=== PATIENT | female | born 1955 | race Caucasian/White ===

== ENCOUNTER 2017-10-03 09:39 | Inpatient (IN) ==
--- NOTE | 2017-10-03 09:35 | Anesthesia Evaluation PreOp ---
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 Anxiety/Depression maintained on Swertraline, Lorazepam.) Other Medical History: GERD (Chronic Nausea maintained on Phenergan, Nexium, Carafate), Other (RAynauds Syndrome. Scleroderma dx 2006 maintained on Voltaren , Sildenaifil, Hydrocodone - primary affecting joints & lungs) Anesthesia History: No Prior Anesthetic Complications, Past Anesthesia (Hyster, , Appy, Pacemaker, Hernia Repair, R-Knee, R-CTR, L-Foot surgery), Problems (PONV) Alcohol Use: none Drug use: none Medications and Allergies Albuterol Sulfate [Proventil Hfa] 2 puff IH Q4H PRN 09/27/15 [History] Aspirin Enteric Coated [Aspirin EC] 81 mg PO QAM 09/27/15 [History] Cetirizine HCl [Zyrtec] 10 mg PO QPM 09/27/15 [History] Clopidogrel [Plavix] 75 mg PO QAM 09/27/15 [History] Cyclobenzaprine [Flexeril] 5 mg PO TID 09/27/15 [History] Diclofenac Sodium [Voltaren] 50 mg PO TID 09/27/15 [History] Doxazosin Mesylate [Cardura Xl] 2 mg PO QPM 09/27/15 [History] Esomeprazole Magnesium [Nexium] 40 mg PO BID 09/27/15 [History] Fluticasone Propionate Nasal [Flonase] 50 mcg NS DAILY PRN 09/27/15 [History] Furosemide [Lasix] 20 mg PO QAM 09/27/15 [History] Gabapentin [Neurontin] 600 mg PO TID 09/27/15 [History] Hydrocodone/Acetaminophen [[place] 7.5-325 Tablet] 1 tab PO Q6H PRN 09/27/15 [ History] LORazepam [Ativan] 1 mg PO QPM 09/27/15 [History] Lisinopril [Zestril] 5 mg PO QAM 09/27/15 [History] Meloxicam [Mobic] 15 mg PO DAILY 09/27/15 [History] Mometasone/Formoterol [Dulera 200 Mcg/5 Mcg Inhaler] 2 puff IH BID PRN 09/27/15 [History] Montelukast [Singulair] 10 mg PO QAM 09/27/15 [History] Nortriptyline [Pamelor] 50 mg PO HS 09/27/15 [History] SUMAtriptan succinate [Imitrex] 50 mg PO AD PRN 09/27/15 [History] Sertraline [Zoloft] 100 mg PO QPM 09/27/15 [History] Sildenafil Citrate [Revatio] 20 mg PO TID 09/27/15 [History] Sucralfate [Carafate] 1 gm PO TID 09/27/15 [History] Benzonatate [Tessalon] 200 mg PO TID PRN #30 capsule 04/15/17 [Rx] GuaiFENesin ER [Mucinex] 1,200 mg PO BID #20 tbbp.12hr 04/15/17 [Rx] Levofloxacin [Levaquin] 500 mg PO DAILY #10 tablet 07/17/17 [Rx] 3 Allergy/AdvReac Type Severity Reaction Status Date / Time codeine Allergy See Verified 09/27/17 11:00 Comments nitrofurantoin Allergy Hives Verified 09/27/17 11:00 [From Macrobid] Penicillins Allergy Hives Verified 09/27/17 11:00 sulfamethoxazole Allergy Hypotension Verified 09/27/17 11:00 [From Septra] Tetracycline Allergy Hives Verified 09/27/17 11:00 trimethoprim [From Septra] Allergy Hypotension Verified 09/27/17 11:00 Sulfa (Sulfonamide AdvReac Hypotension Verified 09/27/17 11:00 Antibiotics) - Meds/Allergy Pre-op Review Medications Reviewed: Yes Allergies Reviewed: Yes Beta Blockers on Current Med List: No Anesthesia Results - Labs Laboratory Tests 09/27/15 03/01/16 05/07/17 12:00 12:24 16:48 WBC Hgb Hct Plt Count PT INR APTT Sodium Potassium Chloride Carbon Dioxide BUN Creatinine Est GFR (Non-Af Amer) Glucose 119 H Calcium 9.4 Magnesium 2.1 Iron 26 L 09/27/17 09/27/17 09/27/17 11:20 11:20 11:20 WBC 7.7 Hgb 9.5 L Hct 32.0 L Plt Count 231 PT 11.3 INR 1.1 APTT 34.5 Sodium 139 Potassium 4.2 Chloride 104 Carbon Dioxide 28 BUN 19 Creatinine 0.78 Est GFR (Non-Af Amer) > 60 Glucose Calcium Magnesium Iron - Imaging EKG: image reviewed (EGD Dated 09/27/2017 - 91bpm VPaced. EKG Dated 09/27/2015 - 50bpm SB, w/ 1st degree block.) Anesthesia Exam O2 Sat Height 1.55 m Weight 88.451 kg Height: 5'1" Weight: 195# BMI = 37 NPO (# of Hours): MNoc - HEENT Pupil (Motor): Pupils equal, EOMI Mallampati: III (GLIDESCOPE may be useful) Teeth: Normal Oral Opening: Greater than 3 - MEAT PACKAGER LOC: Oriented MEAT PACKAGER Motor: Normal RUE, Normal LUE, Normal RLE, Normal LLE, Normal Face MEAT PACKAGER Sensory: Normal: RUE, LUE, RLE, LLE, Face - Cardiac Rhythm: Regular Murmur: None - Pulmonary Breath Sounds: bilateral Clear Respiratory Effort: Symmetrical Anesthesia Assess/Plan ASA Score: 3 (HTN, Pacemaker, Chronic Pain, Anxiety/Depression, Obesity, Asthma , GERD) Modified Radha Scale for Level of Consciousness: Cooperative, oriented, and tranquil Anesthetic Plan: General Monitoring Plan: Standard Monitors Recovery Plan: PACU Anes Supervising Prov Stmt: Pt seen/evaluated, R&B Discussed, questions answered and consent obtained. Bety Fox MD
[~2017-10-03 09:39] MED LIST: *HR* FentaNYL (PF) 100 MCG/2 ML VIAL ONE; *HR* Midazolam HCl 2 MG/2 ML VIAL ONE; *HR* Propofol 200 MG/20 ML VIAL IVP ONE; *HR* Remifentanil 2 MG VIAL IVP ONE
[2017-10-03] MEDS ORDERED: *HR* Labetalol 20 MG/4 ML SYRINGE IVP PRN (09:48)
[2017-10-03] MEDS ORDERED: *HR* HYDROmorphone (PF) 1 MG/ML SYRINGE IVP PRN (09:48)
[2017-10-03] MEDS ORDERED: *HR* Promethazine 25 MG/ML VIAL IVP PRN (09:48)
[2017-10-03] MEDS ORDERED: Acetaminophen IV 1,000 MG/100 ML INFUS..BTL IVPB ONE ×2 (09:49→17:36)
[2017-10-03] MEDS ORDERED: Famotidine 20 MG/2 ML VIAL IVP ONE (09:50)
[2017-10-03] MEDS ORDERED: Gabapentin 300 MG CAPSULE PO ONE (10:00)
[2017-10-03] MEDS ORDERED: Clindamycin 900 MG/50 ML 900 MG/50 ML IV.SOLN IVPB ONE (10:31)
[2017-10-03] MEDS ORDERED: Albuterol 2.5 MG/3 ML NEBULIZER IH ONE (10:31)
[2017-10-03] MEDS: Ringers Solution, Lactated 1,000 ML IVC SCH ×2 (11:03→17:45)
[2017-10-03] MEDS ORDERED: *HR* Remifentanil 2 MG VIAL IVP ONE (11:17)
--- NOTE | 2017-10-03 11:50 | History & Physical Report ---
Date of Encounter: 10/03/17 Time of Encounter: 11:49 24 Hour HP Update - Instructions Instructions: If the History and Physical is less than 30 days old and was completed prior to A.M. admission and or procedure and has NOT been updated on calendar day of procedure please complete this update prior to performing procedure. - Update Patient reports changes in Medical Condition: No Changes in examination, assessment, or condition: No Changes in Medication: No Preop tests/diagnostics Reviewed: Yes Pre-Op MRSA Screen: Negative Surgery Remains Indicated: Yes Consent for Planned Operative Procedure(s) Verified: Yes - Pre-Operative Checklist Preoperative Checklist Indicated: No Prophylactic Antibiotic Ordered: Yes Home Medications Include Beta Simona: No Beta Simona Taken Today (Day of Surgery): No Beta Simona Taken Yesterday (Day Prior to Surgery): No Is VTE Prophylaxis Indicated?: Yes
[2017-10-03] MEDS ORDERED: Lidocaine -MPF 2% 2 ML VIAL ONE (12:06)
[2017-10-03] MEDS ORDERED: *HR* Succinylcholine 200 MG/10 ML VIAL IVP ONE (12:06)
[2017-10-03] MEDS ORDERED: *HR* Rocuronium Bromide 50 MG/5 ML VIAL ONE (12:06)
[2017-10-03] MEDS ORDERED: *HR* Meperidine 25 MG/ML SYRINGE IVP PRN (12:50)
[2017-10-03] MEDS ORDERED: Ondansetron 4 MG/2 ML VIAL IVP ONE (12:50)
[2017-10-03] MEDS ORDERED: EPHEDrine 50 MG/ML VIAL ONE (12:59)
[2017-10-03] MEDS ORDERED: Albumin Human 5% 25.0 GM/500 ML VIAL ONE (14:04)
[2017-10-03] MEDS ORDERED: Clindamycin 600 MG/50 ML 600 MG/50 ML IV.SOLN IVPB ONE (15:54)
--- NOTE | 2017-10-03 16:53 | Orthopedic Operative Note ---
Date of procedure: 10/03/17 Pre-op diagnosis: Degenerative scoliosis, lumbar stenosis, lumbar radiculopathy Post-op diagnosis: same Operation/Findings: Posterior lumbar interbody fusion L2-L5: The patient successfully underwent general endotracheal anesthesia. The patient was given antibiotics prior to the start of the procedure. Compression boots and stockings were used for deep vein thrombosis prophylaxis. A Perez catheter was placed. Leads for neuro monitoring were placed on the upper and lower extremities. This included the cranium. The neuro monitoring personnel confirmed there were satisfactory readings prior to the start of the procedure. The patient was turned prone on the [place] table. The back was prepped and draped in the usual sterile fashion. An incision was was marked and centered over the involved L2-L5 levels in the mid line. The incision was deepened through the lumbar fascia. Bovie cautery and Daniel elevators were used to reflect the paraspinal musculature at the lateral extent of the transverse processes of the involved L2 , L3, L4, and L5 levels. Huma clamps were placed over the L4 and L5 spinous processes. An intraoperative lateral fluoroscopy graft was obtained. A conversation was held between the surgeon and radiologist and both confirmed we had the correct operative levels. We then placed pedicle screws in standard fashion with the aid of fluoroscopy and anatomic landmarks. Briefly a starter awl was used. A gearshift was subsequently used to enter the harbor boat pilot hole via a transpedicular route into the vertebral body. The harbor boat pilot hole was tapped with an undersized instrument, and subsequently eight 6.5 x 40 mm pedicle screws were placed bilaterally at the indicated L2, L3, L4, and L5 levels. The screws were tested with the aid of the neurologic monitoring staff via pedicle screw stimulation. All reading suggested there was no significant cortical wall breech. The screws were also evaluated fluoro- graphically and appeared to be in satisfactory position. We then turned our attention to the decompression portion of the procedure. We removed the supraspinous and interspinous ligaments and subsequently the insertion of the ligamentum flavum on the undersurface of the proximal L4 lamina was dislodged with a curette. We then removed the ligamentum flavum as well as undercut the L4-5 facets at this L4-5 level to decompress the lateral recesses. We also performed a L4 laminectomy. We proceeded proximally to the L3-4 level and again removed hypertrophied ligamentum flavum, undercut the L3-4 facets, 2 partial medial facetectomies, and performed a partial L3 laminectomy. We then moved proximally to the L2-3 level and again undercut the facets to decompress the lateral recesses, removal hypertrophied ligamentum flavum, and did a partial L2 laminectomy. After the decompression which was over and above that which was required to place the interbody graft, the foramen and traversing roots at the L2-3, L3-4, and L4-5 levels were found to be free and patent. We then protected the neural elements including the thecal sac and L5 traversing nerve root on the right with a dural retractor. We made an annulotomy into the L4-5 disc space and then removed entire disc material using Pituitary instruments. We trialed various size grafts after the endplates were prepared for graft insertion. A 10 x 26 enter body graft fit well within the L4-5 disc space. We obtained some bone from the right posterior superior iliac spine through us a separate incision and combined with this with the bone which we had saved from the laminectomies of L2, L3, and L4 portion of the procedure. This autograft bone was first placed in the anterior portion of the L4-5 disc space and additional bone was placed within the interbody graft spacer. We then placed the interbody graft spacer obliquely across the L4-5 disc space towards the midline while protecting the neural elements with a root retractor. When the graft was found to be in satisfactory position the heeler machine was removed. We then copiously irrigated the wound. We then decorticated the L2, L3, L4, and L5 transverse processes as well as the L2-3, L3-4, and L4-5 facet joints of the involved L2-L5 levels to aid in the posterolateral fusion. We placed autograft bone in the lateral gutters over these regions. We then placed rods within the screw heads of the involved L2-L5 levels and first locked the distal screws and then subsequently locked the proximal screws so as to improve and reduce the spondylolisthesis previously seen. We then closed the wound in layers with 1 Vicryl for the fascia, 2-0 Vicryl. Subcutaneous tissue, and Dermabond was used for skin closure. Sterile dressings were placed over the wound. The patient was turned supine on a hospital bed and extubated. All sponge instruments and needle counts were correct at the end of the procedure. The patient tolerated the procedure well without complications. Anesthesia: GETA Surgeon: Preston Mccormick Jr Was there an retail store assistant present: No Estimated blood loss (cc): 300 Specimen: none Condition: stable Disposition: PACU
[2017-10-03] MEDS: *HR* HYDROmorphone (PF) 1 MG/ML SYRINGE IVP PRN ×2 (17:18→17:28)
--- NOTE | 2017-10-03 17:54 | Anesthesia Evaluation Post Op ---
Date of Encounter: 10/03/17 Time of Encounter: 17:54 - Vital Signs Vital Signs: Selected Entries 10/03/17 17:38 10/03/17 17:48 Temperature 97.6 F Pulse Rate 89 Respiratory Rate 16 Blood Pressure 101/50 O2 Sat by Pulse Oximetry 93 Oxygen Flow Rate (LPM) 2 - Lungs Lungs: Clear Ascult./Percussion - Airway Airway: Non-obstructed - Cardiovascular Regular Rate - Mental Status Mental Status: Alert & Oriented, Answers Appropriately - Pain Pain Scale: 1 Pain Scale used: Numeric (1 - 10) - Nausea Vomiting Nausea Vomiting: Not Present - Hydration Hydration: Ice chips, Perez catheter - Discharge PostOp Status: Transfer Patient to floor
[2017-10-03] MEDS ORDERED: Fluticasone Propionate Nasal 50 MCG/SPRAY BOTTLE NS PRN (18:25)
[2017-10-03] MEDS ORDERED: Ondansetron 4 MG/2 ML VIAL IVP PRN (18:25)
[2017-10-03] MEDS ORDERED: Naloxone 0.4 MG/ML INJ IVP PRN (18:25)
[2017-10-03] MEDS ORDERED: *HR* LORazepam 1 MG TABLET PO PRN (18:25)
[2017-10-03] MEDS ORDERED: Acetaminophen 325 MG TABLET PO PRN (18:25)
[2017-10-03] MEDS: Sildenafil Citrate 20 MG TABLET PO SCH (21:15)
[2017-10-03] MEDS: *HR* OxyCODONE Immed Rel 5 MG TABLET PO SCH (21:16)
[2017-10-03] MEDS: Loratadine 10 MG TABLET PO SCH (21:16)
[2017-10-03] MEDS: Sucralfate 1 GM TABLET PO SCH (21:16)
[2017-10-03] MEDS: *HR* Morphine 2 MG/ML SYRINGE IVP PRN (23:56)
[2017-10-04] MEDS: *HR* OxyCODONE Immed Rel 5 MG TABLET PO SCH ×3 (00:49→08:59)
[2017-10-04] MEDS: Ringers Solution, Lactated 1,000 ML IVC SCH ×2 (01:33→15:31)
[2017-10-04 04:49] LABS: Basophils % 0.4 %; Eosinophils % 0.3 %; Hematocrit 24.6 % (35.3-44.9); Hemoglobin 7.7 g/dL (11.5-15.4); Immature Granulocytes % 0.4 % (0-4); Immature Platelets 6.8 % (1.1-6.1); Lymphocytes # 1.1 K/mcL (0.6-4.6); Lymphocytes % 10.8 %; Mean Corpuscular HGB Conc 31.3 g/dL (31.6-35.5); Mean Corpuscular Hemoglobin 23.1 pg (28.0-33.3); Mean Corpuscular Volume 73.7 fL (83.0-100.0); Mean Platelet Volume 11.4 fL (9.4-12.4); Monocytes # 0.7 K/mcL (0.0-1.3); Monocytes % 6.5 %; Neutrophils # 8.5 K/mcL (1.6-8.9); Platelet Count 185 K/mcL (140-400); Red Blood Count 3.34 M/mcL (3.82-4.97); Red Cell Distribution Width 17.5 % (11.5-14.5); Segmented Neutrophils % 81.6 %
[2017-10-04 05:50] LABS: Calcium 8.3 mg/dL (8.6-10.3); Chloride 106 mEq/L (98-107); Potassium 4.3 mEq/L (3.5-5.1); Sodium 136 mEq/L (136-145)
[2017-10-04 05:56] LABS: BUN/Creatinine Ratio 21 (6-26); Blood Urea Nitrogen 13 mg/dL (8-23); Glucose 131 mg/dL (70-105); Osmolality,Calculated 284 (280-300); eGFR For African Americans > 60 (> 60); eGFR For Non-African Americans > 60 (> 60)
[2017-10-04 06:14] LABS: Carbon Dioxide 19 mEq/L (23-29)
[2017-10-04] MEDS: SUMAtriptan succinate 50 MG TABLET PO PRN ×2 (06:29→17:39)
[2017-10-04] MEDS: *HR* Morphine 2 MG/ML SYRINGE IVP PRN ×3 (06:31→22:03)
[2017-10-04] MEDS ORDERED: 0.9 % Sodium Chloride 250 ML ONE (08:40)
[2017-10-04] MEDS: Sucralfate 1 GM TABLET PO SCH ×3 (08:58→19:44)
[2017-10-04] MEDS: Furosemide 20 MG TABLET PO SCH (08:58)
[2017-10-04] MEDS: Aspirin Enteric Coated 81 MG Tablet PO SCH (08:58)
[2017-10-04] MEDS: Sildenafil Citrate 20 MG TABLET PO SCH ×3 (08:59→19:44)
[2017-10-04] MEDS ORDERED: *HR* OxyCODONE Immed Rel 5 MG TABLET PO PRN (11:18)
[2017-10-04] MEDS: Acetaminophen IV 1,000 MG/100 ML INFUS..BTL IVPB PRN ×2 (13:14→23:29)
[2017-10-04] MEDS: diazePAM 5 MG TABLET PO PRN (13:14)
[2017-10-04] MEDS: Loratadine 10 MG TABLET PO SCH (17:38)
[2017-10-04] MEDS: *HR* HYDROcodone/Acet 7.5/325 mg TABLET PO PRN (20:30)
[2017-10-05] MEDS: *HR* HYDROcodone/Acet 7.5/325 mg TABLET PO PRN ×5 (01:00→21:34)
[2017-10-05] MEDS: *HR* Morphine 2 MG/ML SYRINGE IVP PRN ×3 (03:35→23:20)
[2017-10-05] MEDS: Furosemide 20 MG TABLET PO SCH (07:43)
[2017-10-05] MEDS: Sucralfate 1 GM TABLET PO SCH ×3 (07:49→20:32)
[2017-10-05] MEDS: Aspirin Enteric Coated 81 MG Tablet PO SCH (07:49)
[2017-10-05] MEDS: Sildenafil Citrate 20 MG TABLET PO SCH ×3 (07:49→20:32)
[2017-10-05] MEDS: Ringers Solution, Lactated 1,000 ML IVC SCH ×2 (07:51→23:19)
[2017-10-05] MEDS: SUMAtriptan succinate 50 MG TABLET PO PRN (07:51)
[2017-10-05 09:21] LABS: Basophils % 0.2 %; Eosinophils # 0.1 K/mcL (0.0-0.6); Hematocrit 26.7 % (35.3-44.9); Hemoglobin 8.5 g/dL (11.5-15.4); Immature Granulocytes % 0.3 % (0-4); Lymphocytes # 1.3 K/mcL (0.6-4.6); Mean Corpuscular HGB Conc 31.8 g/dL (31.6-35.5); Mean Corpuscular Hemoglobin 23.5 pg (28.0-33.3); Mean Corpuscular Volume 73.8 fL (83.0-100.0); Mean Platelet Volume 10.7 fL (9.4-12.4); Monocytes # 1.2 K/mcL (0.0-1.3); Neutrophils # 10.1 K/mcL (1.6-8.9); Platelet Count 201 K/mcL (140-400); Red Blood Count 3.62 M/mcL (3.82-4.97); Red Cell Distribution Width 17.5 % (11.5-14.5); Segmented Neutrophils % 79.5 %
[2017-10-05 10:13] LABS: BUN/Creatinine Ratio 15 (6-26); Blood Urea Nitrogen 8 mg/dL (8-23); Calcium 8.7 mg/dL (8.6-10.3); Carbon Dioxide 27 mEq/L (23-29); Chloride 105 mEq/L (98-107); Glucose 132 mg/dL (70-105); Osmolality,Calculated 282 (280-300); Potassium 3.4 mEq/L (3.5-5.1); Sodium 136 mEq/L (136-145); eGFR For African Americans > 60 (> 60); eGFR For Non-African Americans > 60 (> 60)
[2017-10-05] MEDS ORDERED: Potassium Chloride 40 MEQ, Lidocaine 1% 2 ML in D5% in Water 500 ML IVPB ONE (11:48)
[2017-10-05] MEDS: Loratadine 10 MG TABLET PO SCH (18:03)
[2017-10-05] MEDS: diazePAM 5 MG TABLET PO PRN (18:07)
[2017-10-05] MEDS: NEXIUM 20 MG PO SCH (21:35)
[2017-10-06] MEDS: SUMAtriptan succinate 50 MG TABLET PO PRN (01:54)
[2017-10-06] MEDS: diazePAM 5 MG TABLET PO PRN (01:59)
[2017-10-06] MEDS: *HR* Morphine 2 MG/ML SYRINGE IVP PRN ×3 (04:43→23:53)
[2017-10-06 04:46] LABS: Basophils % 0.2 %; Eosinophils # 0.3 K/mcL (0.0-0.6); Eosinophils % 2.6 %; Hematocrit 24.8 % (35.3-44.9); Hemoglobin 7.7 g/dL (11.5-15.4); Immature Granulocytes % 0.5 % (0-4); Lymphocytes # 1.2 K/mcL (0.6-4.6); Lymphocytes % 10.9 %; Mean Corpuscular Hemoglobin 23.3 pg (28.0-33.3); Mean Corpuscular Volume 74.9 fL (83.0-100.0); Mean Platelet Volume 10.8 fL (9.4-12.4); Monocytes # 1.1 K/mcL (0.0-1.3); Neutrophils # 8.4 K/mcL (1.6-8.9); Platelet Count 172 K/mcL (140-400); Red Blood Count 3.31 M/mcL (3.82-4.97); Red Cell Distribution Width 17.8 % (11.5-14.5); Segmented Neutrophils % 75.8 %
[2017-10-06 05:27] LABS: BUN/Creatinine Ratio 14 (6-26); Blood Urea Nitrogen 7 mg/dL (8-23); Calcium 8.5 mg/dL (8.6-10.3); Carbon Dioxide 27 mEq/L (23-29); Chloride 106 mEq/L (98-107); Glucose 124 mg/dL (70-105); Osmolality,Calculated 281 (280-300); Potassium 3.8 mEq/L (3.5-5.1); Sodium 136 mEq/L (136-145); eGFR For African Americans > 60 (> 60); eGFR For Non-African Americans > 60 (> 60)
[2017-10-06] MEDS: *HR* HYDROcodone/Acet 7.5/325 mg TABLET PO PRN (05:54)
[2017-10-06] MEDS: Furosemide 20 MG TABLET PO SCH (07:38)
[2017-10-06] MEDS: Sucralfate 1 GM TABLET PO SCH ×3 (07:38→21:47)
[2017-10-06] MEDS: Aspirin Enteric Coated 81 MG Tablet PO SCH (07:39)
[2017-10-06] MEDS: Sildenafil Citrate 20 MG TABLET PO SCH ×3 (07:39→21:48)
[2017-10-06] MEDS: NEXIUM 20 MG PO SCH ×2 (07:40→21:49)
--- NOTE | 2017-10-06 09:52 | Spine Progress Note ---
Date of Encounter: 10/04/17 Time of Encounter: 09:50 Subjective Principal diagnosis: Status post posterior lumbar interbody fusion Interval history: The patient is without complaints. Afebrile vital signs are stable. Dressing is clean dry and intact. Neurovascularly intact with regard to bilateral lower extremities. Fires all upper and lower extremity motor groups. Assessment : stable. Plan mobilize ,continue analgesics, discharge planning. Patient has chronic anemia and we will transfuse if hemoglobin goes below 8.2. Objective Vital signs: Vital Signs Temp Pulse Resp BP Pulse Ox 10/06/17 06:33 98.4 F 98 16 127/68 98 10/06/17 04:00 98.7 F 104 124/72 96 10/06/17 00:02 98.7 F 109 18 118/64 96 10/05/17 20:15 98.0 F 108 17 124/69 97 10/05/17 16:34 98.3 F 107 16 116/73 98 10/05/17 12:57 124 16 98/62 95 10/05/17 12:55 70 10/05/17 11:30 99.0 F 118 18 106/64 91 Intake and Output 10/05/17 10/06/17 10/06/17 23:59 07:59 15:59 Intake Total 1600 / 1600 600 / 600 Output Total 650 / 650 450 / 450 Balance 950 / 950 150 / 150 Intake: IV Fluids 1000 / 1000 Lactated Ringers 1,000 ML @ 100 1000 / 1000 mls/hr IVC .Q10H [facility] Rx#: [id number] Oral 600 / 600 600 / 600 Output: Urine 650 / 650 450 / 450 Other: Weight 92.5 kg Patient Weight 10/06/17 23:59 Weight 92.5 kg - Labs CBC & BMP: 10/06/17 04:04 10/06/17 04:04 Labs: Abnormal lab results RBC 3.31 M/mcL (3.82-4.97) L 10/06/17 04:04 Hgb 7.7 g/dL (11.5-15.4) L 10/06/17 04:04 Hct 24.8 % (35.3-44.9) L 10/06/17 04:04 MCV 74.9 fL (83.0-100.0) L 10/06/17 04:04 MCH 23.3 pg (28.0-33.3) L 10/06/17 04:04 MCHC 31.0 g/dL (31.6-35.5) L 10/06/17 04:04 RDW 17.8 % (11.5-14.5) H 10/06/17 04:04 Immature Plt Fraction 6.8 % (1.1-6.1) H 10/04/17 03:58 BUN 7 mg/dL (8-23) L 10/06/17 04:04 Creatinine 0.50 mg/dL (0.60-1.20) L 10/06/17 04:04 Glucose 124 mg/dL (70-105) H 10/06/17 04:04 Calcium 8.5 mg/dL (8.6-10.3) L 10/06/17 04:04 Consult Discharge Plan - Plan Referrals: Dominic Martins Jr, MD [Primary Care Provider] - 12/10/17 2:15 pm
--- NOTE | 2017-10-06 09:54 | Spine Progress Note ---
Date of Encounter: 10/05/17 Time of Encounter: 13:35 Subjective Principal diagnosis: Status post posterior lumbar interbody fusion Interval history: The patient complains of back pain and groin pain.. Afebrile vital signs are stable. Dressing is clean dry and intact. Neurovascularly intact with regard to bilateral lower extremities. Fires all upper and lower extremity motor groups. Assessment :stable. Plan mobilize ,continue analgesics, discharge planning. Will transfuse 1 unit PRBCs. Objective Vital signs: Vital Signs Temp Pulse Resp BP Pulse Ox 10/06/17 06:33 98.4 F 98 16 127/68 98 10/06/17 04:00 98.7 F 104 124/72 96 10/06/17 00:02 98.7 F 109 18 118/64 96 10/05/17 20:15 98.0 F 108 17 124/69 97 10/05/17 16:34 98.3 F 107 16 116/73 98 10/05/17 12:57 124 16 98/62 95 10/05/17 12:55 70 10/05/17 11:30 99.0 F 118 18 106/64 91 Intake and Output 10/05/17 10/06/17 10/06/17 23:59 07:59 15:59 Intake Total 1600 / 1600 600 / 600 Output Total 650 / 650 450 / 450 Balance 950 / 950 150 / 150 Intake: IV Fluids 1000 / 1000 Lactated Ringers 1,000 ML @ 100 1000 / 1000 mls/hr IVC .Q10H [facility] Rx#: [id number] Oral 600 / 600 600 / 600 Output: Urine 650 / 650 450 / 450 Other: Weight 92.5 kg Patient Weight 10/06/17 23:59 Weight 92.5 kg - Labs CBC & BMP: 10/06/17 04:04 10/06/17 04:04 Labs: Abnormal lab results RBC 3.31 M/mcL (3.82-4.97) L 10/06/17 04:04 Hgb 7.7 g/dL (11.5-15.4) L 10/06/17 04:04 Hct 24.8 % (35.3-44.9) L 10/06/17 04:04 MCV 74.9 fL (83.0-100.0) L 10/06/17 04:04 MCH 23.3 pg (28.0-33.3) L 10/06/17 04:04 MCHC 31.0 g/dL (31.6-35.5) L 10/06/17 04:04 RDW 17.8 % (11.5-14.5) H 10/06/17 04:04 Immature Plt Fraction 6.8 % (1.1-6.1) H 10/04/17 03:58 BUN 7 mg/dL (8-23) L 10/06/17 04:04 Creatinine 0.50 mg/dL (0.60-1.20) L 10/06/17 04:04 Glucose 124 mg/dL (70-105) H 10/06/17 04:04 Calcium 8.5 mg/dL (8.6-10.3) L 10/06/17 04:04 Consult Discharge Plan - Plan Referrals: Dominic Martins Jr, MD [Primary Care Provider] - 12/10/17 2:15 pm
--- NOTE | 2017-10-06 09:55 | Spine Progress Note ---
Date of Encounter: 10/06/17 Time of Encounter: 09:54 Subjective Principal diagnosis: Status post posterior lumbar interbody fusion Interval history: The patient complains of back pain and groin pain. Difficulty with sleep. Afebrile vital signs are stable. Dressing is clean dry and intact. Neurovascularly intact with regard to bilateral lower extremities. Fires all upper and lower extremity motor groups. Assessment :stable. Plan mobilize , continue analgesics, discharge planning. Will transfuse an additional 1 unit PRBCs. Restoril when necessary. Objective Vital signs: Vital Signs Temp Pulse Resp BP Pulse Ox 10/06/17 06:33 98.4 F 98 16 127/68 98 10/06/17 04:00 98.7 F 104 124/72 96 10/06/17 00:02 98.7 F 109 18 118/64 96 10/05/17 20:15 98.0 F 108 17 124/69 97 10/05/17 16:34 98.3 F 107 16 116/73 98 10/05/17 12:57 124 16 98/62 95 10/05/17 12:55 70 10/05/17 11:30 99.0 F 118 18 106/64 91 Intake and Output 10/05/17 10/06/17 10/06/17 23:59 07:59 15:59 Intake Total 1600 / 1600 600 / 600 Output Total 650 / 650 450 / 450 Balance 950 / 950 150 / 150 Intake: IV Fluids 1000 / 1000 Lactated Ringers 1,000 ML @ 100 1000 / 1000 mls/hr IVC .Q10H [facility] Rx#: [id number] Oral 600 / 600 600 / 600 Output: Urine 650 / 650 450 / 450 Other: Weight 92.5 kg Patient Weight 10/06/17 23:59 Weight 92.5 kg - Labs CBC & BMP: 10/06/17 04:04 10/06/17 04:04 Labs: Abnormal lab results RBC 3.31 M/mcL (3.82-4.97) L 10/06/17 04:04 Hgb 7.7 g/dL (11.5-15.4) L 10/06/17 04:04 Hct 24.8 % (35.3-44.9) L 10/06/17 04:04 MCV 74.9 fL (83.0-100.0) L 10/06/17 04:04 MCH 23.3 pg (28.0-33.3) L 10/06/17 04:04 MCHC 31.0 g/dL (31.6-35.5) L 10/06/17 04:04 RDW 17.8 % (11.5-14.5) H 10/06/17 04:04 Immature Plt Fraction 6.8 % (1.1-6.1) H 10/04/17 03:58 BUN 7 mg/dL (8-23) L 10/06/17 04:04 Creatinine 0.50 mg/dL (0.60-1.20) L 10/06/17 04:04 Glucose 124 mg/dL (70-105) H 10/06/17 04:04 Calcium 8.5 mg/dL (8.6-10.3) L 10/06/17 04:04 Consult Discharge Plan - Plan Referrals: Dominic Martins Jr, MD [Primary Care Provider] - 12/10/17 2:15 pm
[2017-10-06] MEDS ORDERED: 0.9 % Sodium Chloride 250 ML ONE (10:08)
[2017-10-06] MEDS: *HR* HYDROcodone/Acet 10/325 mg TABLET PO PRN (13:44)
[2017-10-06] MEDS: Loratadine 10 MG TABLET PO SCH (17:16)
[2017-10-06] MEDS: Acetaminophen IV 1,000 MG/100 ML INFUS..BTL IVPB PRN (17:23)
[2017-10-06] MEDS: Temazepam 15 MG CAPSULE PO PRN (21:47)
[2017-10-07] MEDS: *HR* HYDROcodone/Acet 10/325 mg TABLET PO PRN ×5 (03:08→20:53)
[2017-10-07 05:21] LABS: Basophils % 0.3 %; Eosinophils # 0.3 K/mcL (0.0-0.6); Eosinophils % 3.1 %; Hematocrit 26.8 % (35.3-44.9); Hemoglobin 8.1 g/dL (11.5-15.4); Immature Granulocytes % 0.6 % (0-4); Lymphocytes % 9.6 %; Mean Corpuscular HGB Conc 30.2 g/dL (31.6-35.5); Mean Corpuscular Hemoglobin 22.9 pg (28.0-33.3); Mean Corpuscular Volume 75.9 fL (83.0-100.0); Mean Platelet Volume 10.7 fL (9.4-12.4); Monocytes # 0.8 K/mcL (0.0-1.3); Monocytes % 8.4 %; Neutrophils # 7.7 K/mcL (1.6-8.9); Nucleated Red Blood Cells 0.3 /100 WBC (0); Platelet Count 199 K/mcL (140-400); Red Blood Count 3.53 M/mcL (3.82-4.97); Red Cell Distribution Width 17.9 % (11.5-14.5)
[2017-10-07 05:37] LABS: BUN/Creatinine Ratio 16 (6-26); Blood Urea Nitrogen 8 mg/dL (8-23); Calcium 8.4 mg/dL (8.6-10.3); Carbon Dioxide 28 mEq/L (23-29); Chloride 103 mEq/L (98-107); Glucose 111 mg/dL (70-105); Osmolality,Calculated 281 (280-300); Potassium 3.3 mEq/L (3.5-5.1); Sodium 136 mEq/L (136-145); eGFR For African Americans > 60 (> 60); eGFR For Non-African Americans > 60 (> 60)
[2017-10-07] MEDS: Sildenafil Citrate 20 MG TABLET PO SCH ×3 (08:15→20:53)
[2017-10-07] MEDS: Furosemide 20 MG TABLET PO SCH (08:15)
[2017-10-07] MEDS: NEXIUM 20 MG PO SCH ×2 (08:17→20:53)
[2017-10-07] MEDS: Aspirin Enteric Coated 81 MG Tablet PO SCH (08:17)
[2017-10-07] MEDS: Sucralfate 1 GM TABLET PO SCH ×3 (08:17→20:53)
[2017-10-07] MEDS: Loratadine 10 MG TABLET PO SCH (16:43)
[2017-10-07] MEDS: diazePAM 5 MG TABLET PO PRN (19:22)
--- NOTE | 2017-10-07 21:48 | Spine Progress Note ---
Date of Encounter: 10/07/17 Time of Encounter: 21:47 Subjective Principal diagnosis: Status post posterior lumbar interbody fusion Interval history: The patient complains of back pain and groin pain. Also some abdominal discomfort. Afebrile vital signs are stable. Dressing is clean dry and intact. Neurovascularly intact with regard to bilateral lower extremities. Fires all upper and lower extremity motor groups. Assessment :stable. Plan mobilize ,continue analgesics, discharge planning. Will add Dulcolax when necessary Objective Vital signs: Vital Signs Temp Pulse Resp BP Pulse Ox 10/07/17 19:08 98.7 F 111 14 116/71 92 10/07/17 16:17 98.6 F 100 16 122/72 98 10/07/17 12:08 98.3 F 106 16 100/64 93 10/07/17 06:52 98.1 F 100 17 103/57 92 10/06/17 23:56 98.4 F 108 18 126/79 97 Intake and Output 10/07/17 10/07/17 10/07/17 07:59 15:59 23:59 Intake Total 320 / 320 Output Total 300 / 300 Balance 320 / 320 -300 / -300 Intake: Oral 320 / 320 Output: Urine 300 / 300 Other: Meal Lunch Percent of Meal Consumed 30% # Voids 1 1 # Urine Diapers 3 Weight 92 kg Patient Weight 10/07/17 23:59 Weight 92 kg - Labs CBC & BMP: 10/07/17 04:53 10/07/17 04:53 Labs: Abnormal lab results RBC 3.53 M/mcL (3.82-4.97) L 10/07/17 04:53 Hgb 8.1 g/dL (11.5-15.4) L 10/07/17 04:53 Hct 26.8 % (35.3-44.9) L 10/07/17 04:53 MCV 75.9 fL (83.0-100.0) L 10/07/17 04:53 MCH 22.9 pg (28.0-33.3) L 10/07/17 04:53 MCHC 30.2 g/dL (31.6-35.5) L 10/07/17 04:53 RDW 17.9 % (11.5-14.5) H 10/07/17 04:53 Nucleated RBCs/100 WBC 0.3 /100 WBC (0) H 10/07/17 04:53 Immature Plt Fraction 6.8 % (1.1-6.1) H 10/04/17 03:58 Potassium 3.3 mEq/L (3.5-5.1) L 10/07/17 04:53 Creatinine 0.49 mg/dL (0.60-1.20) L 10/07/17 04:53 Glucose 111 mg/dL (70-105) H 10/07/17 04:53 Calcium 8.4 mg/dL (8.6-10.3) L 10/07/17 04:53 Consult Discharge Plan - Plan Referrals: Dominic Martins Jr, MD [Primary Care Provider] - 12/10/17 2:15 pm
[2017-10-08] MEDS: Temazepam 15 MG CAPSULE PO PRN (00:07)
[2017-10-08] MEDS: *HR* HYDROcodone/Acet 10/325 mg TABLET PO PRN ×3 (02:19→13:31)
[2017-10-08] MEDS: Aspirin Enteric Coated 81 MG Tablet PO SCH (09:01)
[2017-10-08] MEDS: Sucralfate 1 GM TABLET PO SCH (09:01)
[2017-10-08] MEDS: Sildenafil Citrate 20 MG TABLET PO SCH (09:01)
[2017-10-08] MEDS: Furosemide 20 MG TABLET PO SCH (09:01)
[2017-10-08] MEDS: NEXIUM 20 MG PO SCH (09:02)
[2017-10-08] MEDS: diazePAM 5 MG TABLET PO PRN (11:11)
[2017-10-08 11:37] VITALS: BP 123/74
--- NOTE | 2017-10-08 12:32 | Discharge Summary ---
Date of Encounter: 10/08/17 Time of Encounter: 12:28 - Discharge Diagnosis (1) Degenerative scoliosis in adult patient Priority: Primary Status: Chronic (2) Lumbar stenosis Priority: Secondary Status: Chronic Qualifiers: Neurogenic claudication status: with neurogenic claudication Qualified Code (s): M48.062 - Spinal stenosis, lumbar region with neurogenic claudication (3) Lumbar radiculopathy Priority: Secondary Status: Chronic - Discharge Medications Prescriptions: HYDROcodone/Acet 10/325 mg [[place] 10-325 mg] 1 each PO Q4HR PRN #60 tablet PRN Reason: Mild To Moderate Pain Home Medications: Albuterol Sulfate [Proventil Hfa] 2 puff IH Q4H PRN 09/27/15 [History] Aspirin Enteric Coated [Aspirin EC] 81 mg PO QAM 09/27/15 [History] Cetirizine HCl [Zyrtec] 10 mg PO QPM 09/27/15 [History] Clopidogrel [Plavix] 75 mg PO QAM 09/27/15 [History] Cyclobenzaprine [Flexeril] 5 mg PO TID PRN 09/27/15 [History] Diclofenac Sodium [Voltaren] 50 mg PO TID 09/27/15 [History] Esomeprazole Magnesium [Nexium] 40 mg PO BID 09/27/15 [History] Fluticasone Propionate Nasal [Flonase] 50 mcg NS DAILY PRN 09/27/15 [History] Furosemide [Lasix] 20 mg PO QAM 09/27/15 [History] LORazepam [Ativan] 1 mg PO TID PRN 09/27/15 [History] Lisinopril [Zestril] 2.5 mg PO QAM 09/27/15 [History] Montelukast [Singulair] 10 mg PO QAM 09/27/15 [History] SUMAtriptan succinate [Imitrex] 50 mg PO AD PRN 09/27/15 [History] Sertraline [Zoloft] 100 mg PO QPM 09/27/15 [History] Sildenafil Citrate [Revatio] 20 mg PO TID 09/27/15 [History] Sucralfate [Carafate] 1 gm PO TID 09/27/15 [History] Doxazosin [Cardura] 1 mg PO HS 10/03/17 [History] Nortriptyline HCl 50 mg PO HS 10/03/17 [History] HYDROcodone/Acet 10/325 mg [[place] 10-325 mg] 1 each PO Q4HR PRN #60 tablet 10/08 [Rx] Allergies/Adverse Reactions: 3 Allergy/AdvReac Type Severity Reaction Status Date / Time codeine Allergy See Verified 09/27/17 11:00 Comments nitrofurantoin Allergy Hives Verified 09/27/17 11:00 [From Macrobid] Penicillins Allergy Hives Verified 09/27/17 11:00 sulfamethoxazole Allergy Hypotension Verified 09/27/17 11:00 [From Septra] Tetracycline Allergy Hives Verified 09/27/17 11:00 trimethoprim [From Junra] Allergy Hypotension Verified 09/27/17 11:00 Sulfa (Sulfonamide AdvReac Hypotension Verified 09/27/17 11:00 Antibiotics) - Impressions ITS Impressions Lumbar Spine X-Ray 10/03/17 15:10 IMPRESSION: Lumbar fusion from L2-L5 with bilateral pedicle screws. D/ / 10/03/2017 18:09:09 Conor Fuentes MD / oscar Interpreting Provider: Conor Fuentes MD Date of admission: 10/03/17 18:24 Primary care physician: Dominic Martins Jr, MD Consults: 10/03/17 18:25 Consult to Occupational Therapy [CONS] Routine Comment: Evaluate, develop and implement POC Reason for Consult: Postoperative rehabilitation Consult to Physical Therapy [CONS] Routine Comment: Evaluate, develop and implement POC Reason for Consult: Postoperative rehabilitation Consult to Spine Navigator [CONS] [CONS] Routine 10/05/17 10:45 Consult to Medical Facilities Section Director [CONS] Routine Reason for SW Consult: DC planning - Patient Status Disposition: Home Health Service Condition: Good Functional capacity at discharge: independent ambulation Overall status at discharge: patient is progressing back to baseline - Discharge Instructions Follow Up With: Dominic Martins Jr, MD [Primary Care Provider] - 12/10/17 2:15 pm - Diet and Activity Activity: as per physical therapy Diet: advance to your usual diet - Hospital Course Hospital course: Ms. Marcial is a 62 year old female The patient had an uneventful postoperative course. Progressed from intravenous analgesic needs to oral analgesic needs only. Remained neurovascularly intact and mobilized satisfactorily. All intraoperative and/or postoperative radiographic studies were satisfactory. Patient is discharged with plan for rehabilitation and follow-up in 2 weeks post discharge on analgesic medication and patient's home medications. - Time Spent with Patient Total time spent providing and/or coordinating discharge services: - VTE Documentation of Mechanical Device: Intermittent pneumatic compression device
== END 2017-10-08 14:51 | disposition home health service (06) | DRG 460 ==
LOC: SAMDAY 09:39 → 3NENU 18:24
PROVIDERS: ADMIT Orthopaedic Surgery Orthopaedic Surgery of the Spine; ATTEND Orthopaedic Surgery Orthopaedic Surgery of the Spine

== ENCOUNTER 2017-10-24 04:19 | Inpatient (IN) ==
[2017-10-24] MEDS ORDERED: 0.9 % Sodium Chloride 1,000 ML IVC ONE (04:47)
[2017-10-24] MEDS ORDERED: Ondansetron 4 MG/2 ML VIAL IVP ONE (04:47)
[2017-10-24] MEDS ORDERED: *HR* HYDROmorphone (PF) 1 MG/ML SYRINGE IVP ONE (04:47)
--- NOTE | 2017-10-24 04:55 | Emergency Department Note ---
Disposition Clinical Impression: Abdominal pain Qualifiers: Abdominal location: unspecified location Qualified Code(s): R10.9 - Unspecified abdominal pain Back pain Qualifiers: Back pain location: low back pain Chronicity: acute Back pain laterality: unspecified Sciatica presence: unspecified whether sciatica present Qualified Code(s): M54.5 - Low back pain Disposition: Still a Patient Condition: Undetermined Referrals: Dominic Martins Jr, MD [Primary Care Provider] - Forms: ED Satisfaction Letter General Adult HPI - General Chief complaint: ED Back Pain/Injury Stated complaint: Low Back Pain s/p sx Time Seen by Provider: 10/24/17 04:21 Source: patient, EMS Limitations: no limitations Nursing Notes Reviewed: Yes Vital Signs Reviewed: Yes - History of Present Illness HPI Narrative: 62 y/o female who reports she had L2-L5 fusion on 10/03 with d/c from the hospital on 10/08. She reports acute worsening of her pain over the last 48 hours. She also reports drainage from the surgical site. She was seen by her surgeon and has another appointment today to follow up but reports her pain has increased and she cannot wait. Denies fever. No N/V/D/C. No difficulty urinating. She reports her pain is in the area of the surgery on her back. No new numbness or weakness in her lower extremities. No bowel/bladder incontinence or retention. She also admits to some lower abdominal pain which began yesterday while trying to sit up. Still present. Radiation: non-radiation Pain Severity: severe Pain Scale: 10 Consistency: constant Improves with: nothing Worsens with: nothing Associated symptoms: Reports: denies other symptoms Treatments Prior to Arrival: none - Related Data Home Medications Medication Instructions Recorded Confirmed Albuterol Sulfate [Proventil Hfa] 2 puff IH Q4H PRN 09/27/15 10/03/17 Aspirin Enteric Coated [Aspirin EC] 81 mg PO QAM 09/27/15 10/03/17 Cetirizine HCl [Zyrtec] 10 mg PO QPM 09/27/15 10/03/17 Clopidogrel [Plavix] 75 mg PO QAM 09/27/15 10/03/17 Cyclobenzaprine [Flexeril] 5 mg PO TID PRN 09/27/15 10/03/17 Diclofenac Sodium [Voltaren] 50 mg PO TID 09/27/15 10/03/17 Esomeprazole Magnesium [Nexium] 40 mg PO BID 09/27/15 10/03/17 Fluticasone Propionate Nasal 50 mcg NS DAILY PRN 09/27/15 10/03/17 [Flonase] Furosemide [Lasix] 20 mg PO QAM 09/27/15 10/03/17 LORazepam [Ativan] 1 mg PO TID PRN 09/27/15 10/03/17 Lisinopril [Zestril] 2.5 mg PO QAM 09/27/15 10/03/17 Montelukast [Singulair] 10 mg PO QAM 09/27/15 10/03/17 SUMAtriptan succinate [Imitrex] 50 mg PO AD PRN 09/27/15 10/03/17 Sertraline [Zoloft] 100 mg PO QPM 09/27/15 10/03/17 Sildenafil Citrate [Revatio] 20 mg PO TID 09/27/15 10/03/17 Sucralfate [Carafate] 1 gm PO TID 09/27/15 10/03/17 Doxazosin [Cardura] 1 mg PO HS 10/03/17 10/03/17 Nortriptyline HCl 50 mg PO HS 10/03/17 10/03/17 Previous Rx's Medication Instructions Recorded HYDROcodone/Acet 10/325 mg [[employer] 1 each PO Q4HR PRN #60 tablet 10/08/17 10-325 mg] Allergies Allergy/AdvReac Type Severity Reaction Status Date / Time codeine Allergy See Verified 10/24/17 04:25 Comments nitrofurantoin Allergy Hives Verified 10/24/17 04:25 [From Macrobid] Penicillins Allergy Hives Verified 10/24/17 04:25 sulfamethoxazole Allergy Hypotension Verified 10/24/17 04:25 [From Septra] Tetracycline Allergy Hives Verified 10/24/17 04:25 trimethoprim [From Septra] Allergy Hypotension Verified 10/24/17 04:25 Sulfa (Sulfonamide AdvReac Hypotension Verified 10/24/17 04:25 Antibiotics) All systems ED: reviewed and negative except as stated. Constitutional: Denies: fever ENT ED: Denies: throat pain Cardiovascular: Denies: chest pain Respiratory: Denies: cough Gastrointestinal: Denies: nausea, vomiting Musculoskeletal: Reports: back pain Integumentary: Denies: rash Past Medical History - Past Medical History Medical history: Reports: asthma, CHF, COPD, GERD, hypertension, myocardial infarction Surgical history: Reports: appendectomy, hysterectomy Psychiatric history: Reports: anxiety, panic disorder - Social History Smoking Status: Never smoker Smokeless Tobacco Status: No Alcohol use: Reports: none Drug use: Reports: none Physical Exam - General Limitations: no limitations General appearance: alert - Head Head exam: atraumatic - Eye Eye exam: Present: normal appearance, PERRL - ENT ENT exam: normal exam - Neck Neck exam: Present: normal inspection - Chest Chest inspection: Present: normal inspection - Respiratory Respiratory exam: Present: normal lung sounds bilaterally - Cardiovascular Cardiovascular exam: Present: normal rhythm, tachycardia - Abdominal Exam Abdominal exam: Present: soft, Non-Tender - Extremities Exam Extremities exam: Present: normal inspection - Back Exam Back exam: Present: other (vertical incision over lumbar spine. No significant active drainage, however there is some stains on the bandage. Unable to express any fluid. No erythema. Incision is closed.) - Neurological Exam Neurological exam: Present: alert, oriented X3 - Skin Skin exam: Present: warm, dry Course Course Narrative: Tachycardia is present on arrival. Afebrile and no reported fever at home. Due to tachycardia w/ abdominal pain, will get CT abdomen. Will also ct lumbar spine. Patient will be signed out to the day team to follow up on labwork and imaging. Vital Signs Temperature 99.4 F 10/24/17 04:21 Pulse Rate 117 10/24/17 04:21 Respiratory Rate 20 10/24/17 04:21 Blood Pressure 154/76 10/24/17 04:21 O2 Sat by Pulse Oximetry 94 10/24/17 04:21 Temperature 99.4 F 10/24/17 04:21 Pulse Rate 115 10/24/17 06:22 Respiratory Rate 20 10/24/17 06:22 Blood Pressure 131/69 10/24/17 06:22 O2 Sat by Pulse Oximetry 94 10/24/17 04:21 Oxygen Delivery Oxygen Delivery Room Air Medical Decision Making - Medical Records Medical records reviewed: Yes I reviewed the patient's medical records. - Lab Data Lab results reviewed: Yes I reviewed the patient's lab results. Result diagrams: 10/24/17 05:32 10/24/17 05:32 Lab Results 10/24/17 10/24/17 10/24/17 Range/Units 05:25 05:32 05:32 WBC 12.8 H (4.3-11.1) K/mcL RBC 3.75 L (3.82-4.97) M/mcL Hgb 8.4 L (11.5-15.4) g/dL Hct 27.6 L (35.3-44.9) % MCV 73.6 L (83.0-100.0) fL MCH 22.4 L (28.0-33.3) pg MCHC 30.4 L (31.6-35.5) g/dL RDW 18.8 H (11.5-14.5) % Plt Count 434 H (140-400) K/mcL MPV 9.6 (9.4-12.4) fL Immature Gran % 1.0 (0-4) % Seg Neutrophils % 81.1 % Lymphocytes % 10.6 % Monocytes % 5.1 % Eosinophils % 2.0 % Basophils % 0.2 % Neutrophils # 10.3 H (1.6-8.9) K/mcL Lymphocytes # 1.4 (0.6-4.6) K/mcL Monocytes # 0.7 (0.0-1.3) K/mcL Eosinophils # 0.3 (0.0-0.6) K/mcL Basophils # 0.0 (0.0-0.2) K/mcL Sodium 136 (136-145) mEq/L Potassium 4.1 (3.5-5.1) mEq/L Chloride 100 (98-107) mEq/L Carbon Dioxide 26 (23-29) mEq/L BUN 10 (8-23) mg/dL Creatinine 0.64 (0.60-1.20) mg/dL Est GFR ( Amer) > 60 (> 60) Est GFR (Non-Af Amer) > 60 (> 60) BUN/Creatinine Ratio 16 (6-26) Glucose 142 H (70-105) mg/dL Calculated Osmolality 283 (280-300) Lactic Acid (0.5-2.2) mmol/L Calcium 9.5 (8.6-10.3) mg/dL Total Bilirubin 1.0 (0.3-1.0) mg/dL Direct Bilirubin 0.5 H (0.0-0.2) mg/dL Indirect Bilirubin 0.5 (0.0-1.2) mg/dL AST 43 H (13-39) Units/L ALT 58 H (7-52) Units/L Alkaline Phosphatase 331 H (34-104) Units/L Serum Total Protein 8.0 (6.4-8.9) g/dL Albumin 3.6 (3.5-5.7) g/dL Globulin 4.4 H (2.4-3.5) g/dL Albumin/Globulin Ratio 0.8 L (1.1-2.2) Lipase < 3 L (11-82) Units/L Urine Color Yellow (Yellow) Urine Clarity Cloudy A (Clear) Urine pH 7.0 (5.0-8.0) pH Units Ur Specific [place] 1.012 (1.010-1.025) Urine Protein Trace (Neg-Trace) mg/dL Urine Glucose (UA) Normal (Normal) mg/dL Urine Ketones Negative (Negative) mg/dL Urine Blood Negative (Negative) Urine Nitrite Negative (Negative) Urine Bilirubin Negative (Negative) Urine Urobilinogen 2.0 H (Normal) mg/dL Ur Leukocyte Esterase Trace H (Negative) Urine Microscopic RBC 0-3 (0-3) per hpf Urine Microscopic WBC 5-15 H (0-3) per hpf Ur Squamous Epith Cells Many H (None-Few) per lpf Urine Bacteria Few (None-Few) per hpf Hyaline Casts None Seen (None-Few) per lpf Ur Culture Indicated? NO. (NO) 10/24/17 Range/Units 05:32 WBC (4.3-11.1) K/mcL RBC (3.82-4.97) M/mcL Hgb (11.5-15.4) g/dL Hct (35.3-44.9) % MCV (83.0-100.0) fL MCH (28.0-33.3) pg MCHC (31.6-35.5) g/dL RDW (11.5-14.5) % Plt Count (140-400) K/mcL MPV (9.4-12.4) fL Immature Gran % (0-4) % Seg Neutrophils % % Lymphocytes % % Monocytes % % Eosinophils % % Basophils % % Neutrophils # (1.6-8.9) K/mcL Lymphocytes # (0.6-4.6) K/mcL Monocytes # (0.0-1.3) K/mcL Eosinophils # (0.0-0.6) K/mcL Basophils # (0.0-0.2) K/mcL Sodium (136-145) mEq/L Potassium (3.5-5.1) mEq/L Chloride (98-107) mEq/L Carbon Dioxide (23-29) mEq/L BUN (8-23) mg/dL Creatinine (0.60-1.20) mg/dL Est GFR ( Amer) (> 60) Est GFR (Non-Af Amer) (> 60) BUN/Creatinine Ratio (6-26) Glucose (70-105) mg/dL Calculated Osmolality (280-300) Lactic Acid 1.2 (0.5-2.2) mmol/L Calcium (8.6-10.3) mg/dL Total Bilirubin (0.3-1.0) mg/dL Direct Bilirubin (0.0-0.2) mg/dL Indirect Bilirubin (0.0-1.2) mg/dL AST (13-39) Units/L ALT (7-52) Units/L Alkaline Phosphatase (34-104) Units/L Serum Total Protein (6.4-8.9) g/dL Albumin (3.5-5.7) g/dL Globulin (2.4-3.5) g/dL Albumin/Globulin Ratio (1.1-2.2) Lipase (11-82) Units/L Urine Color (Yellow) Urine Clarity (Clear) Urine pH (5.0-8.0) pH Units Ur Specific [place] (1.010-1.025) Urine Protein (Neg-Trace) mg/dL Urine Glucose (UA) (Normal) mg/dL Urine Ketones (Negative) mg/dL Urine Blood (Negative) Urine Nitrite (Negative) Urine Bilirubin (Negative) Urine Urobilinogen (Normal) mg/dL Ur Leukocyte Esterase (Negative) Urine Microscopic RBC (0-3) per hpf Urine Microscopic WBC (0-3) per hpf Ur Squamous Epith Cells (None-Few) per lpf Urine Bacteria (None-Few) per hpf Hyaline Casts (None-Few) per lpf Ur Culture Indicated? (NO) Attestation Statement - Attestation Attestation: I, Hubert Manzo, examined this patient and my medical decision-making was reviewed with the EXPERIM[employer] DEVELOPER/PA/Advanced Practice Nurse/Resident Physician. I agree with the documented findings, disposition and treatment plan as described except to the extent set forth below. 62-year-old female presents emergency Department with concerns of abdominal and back pain. Patient states her symptoms have worsened over the past 24-48 hours. She has history of fusion of lumbar spine which was performed within the past 20 days. Patient denies fever however she is tachycardic on initial evaluation. Denies recent trauma. She states she was evaluated by her orthopedic spine surgeon, Dr. Mccormick, who started her on Keflex and has her scheduled for an appointment later today. At the time with the enema shift patient is pending CT and disposition. Care will be transferred to the day physician, Dr. Carrillo pending further care and evaluation
[2017-10-24 05:33] LABS: Bilirubin,Urine Negative (Negative); Blood,Urine Negative (Negative); Clarity,Urine Cloudy (Clear); Color,Urine Yellow (Yellow); Glucose,Urine (UA) Normal (Normal); Ketones,Urine Negative (Negative); Leukocyte Esterase,Urine Trace (Negative); Nitrite,Urine Negative (Negative); Protein,Urine Trace mg/dL (Neg-Trace); Specific Gravity,Urine 1.012 (1.010-1.025)
[2017-10-24 05:36] LABS: Hyaline Casts,Urine None Seen per lpf (None-Few); Squamous Epithelial Cell,Urine Many per lpf (None-Few)
[2017-10-24 05:42] LABS: Basophils % 0.2 %; Eosinophils # 0.3 K/mcL (0.0-0.6); Hematocrit 27.6 % (35.3-44.9); Hemoglobin 8.4 g/dL (11.5-15.4); Lymphocytes # 1.4 K/mcL (0.6-4.6); Lymphocytes % 10.6 %; Mean Corpuscular HGB Conc 30.4 g/dL (31.6-35.5); Mean Corpuscular Hemoglobin 22.4 pg (28.0-33.3); Mean Corpuscular Volume 73.6 fL (83.0-100.0); Mean Platelet Volume 9.6 fL (9.4-12.4); Monocytes # 0.7 K/mcL (0.0-1.3); Monocytes % 5.1 %; Neutrophils # 10.3 K/mcL (1.6-8.9); Platelet Count 434 K/mcL (140-400); Red Blood Count 3.75 M/mcL (3.82-4.97); Red Cell Distribution Width 18.8 % (11.5-14.5); Segmented Neutrophils % 81.1 %
[2017-10-24 05:44] LABS: RBC,Urine 0-3 per hpf (0-3)
[2017-10-24 05:49] LABS: Bacteria,Urine Few per hpf (None-Few)
[2017-10-24 06:15] LABS: Lipase < 3 Units/L (11-82)
[2017-10-24 06:16] LABS: Alanine Aminotransferase 58 Units/L (7-52); Albumin 3.6 g/dL (3.5-5.7); Albumin/Globulin Ratio 0.8 (1.1-2.2); Alkaline Phosphatase 331 Units/L (34-104); Aspartate Amino Transferase 43 Units/L (13-39); BUN/Creatinine Ratio 16 (6-26); Bilirubin,Direct 0.5 mg/dL (0.0-0.2); Bilirubin,Indirect 0.5 mg/dL (0.0-1.2); Blood Urea Nitrogen 10 mg/dL (8-23); Calcium 9.5 mg/dL (8.6-10.3); Carbon Dioxide 26 mEq/L (23-29); Chloride 100 mEq/L (98-107); Globulin 4.4 g/dL (2.4-3.5); Glucose 142 mg/dL (70-105); Osmolality,Calculated 283 (280-300); Potassium 4.1 mEq/L (3.5-5.1); Sodium 136 mEq/L (136-145); eGFR For African Americans > 60 (> 60); eGFR For Non-African Americans > 60 (> 60)
--- NOTE | 2017-10-24 07:22 | Emergency Department Note ---
Disposition Clinical Impression: Status post lumbar spinal fusion Abdominal pain Qualifiers: Abdominal location: unspecified location Qualified Code(s): R10.9 - Unspecified abdominal pain Back pain Qualifiers: Back pain location: low back pain Chronicity: acute Back pain laterality: unspecified Sciatica presence: unspecified whether sciatica present Qualified Code(s): M54.5 - Low back pain Disposition: Admitted As Inpatient Condition: Fair Referrals: Dominic Martins Jr, MD [Primary Care Provider] - Forms: ED Satisfaction Letter Time of Disposition: 07:22 General Adult HPI - General Chief complaint: ED Back Pain/Injury Stated complaint: Low Back Pain s/p sx Time Seen by Provider: 10/24/17 04:21 Source: patient, EMS Limitations: no limitations - History of Present Illness HPI Narrative: Patient was signed out by the prior provider. Please see their documentation for complete history and physical Pain Scale: 10 Improves with: nothing Worsens with: nothing Associated symptoms: Reports: denies other symptoms Treatments Prior to Arrival: none - Related Data Home Medications Medication Instructions Recorded Confirmed Albuterol Sulfate [Proventil Hfa] 2 puff IH Q4H PRN 09/27/15 10/03/17 Aspirin Enteric Coated [Aspirin EC] 81 mg PO QAM 09/27/15 10/03/17 Cetirizine HCl [Zyrtec] 10 mg PO QPM 09/27/15 10/03/17 Clopidogrel [Plavix] 75 mg PO QAM 09/27/15 10/03/17 Cyclobenzaprine [Flexeril] 5 mg PO TID PRN 09/27/15 10/03/17 Diclofenac Sodium [Voltaren] 50 mg PO TID 09/27/15 10/03/17 Esomeprazole Magnesium [Nexium] 40 mg PO BID 09/27/15 10/03/17 Fluticasone Propionate Nasal 50 mcg NS DAILY PRN 09/27/15 10/03/17 [Flonase] Furosemide [Lasix] 20 mg PO QAM 09/27/15 10/03/17 LORazepam [Ativan] 1 mg PO TID PRN 09/27/15 10/03/17 Lisinopril [Zestril] 2.5 mg PO QAM 09/27/15 10/03/17 Montelukast [Singulair] 10 mg PO QAM 09/27/15 10/03/17 SUMAtriptan succinate [Imitrex] 50 mg PO AD PRN 09/27/15 10/03/17 Sertraline [Zoloft] 100 mg PO QPM 09/27/15 10/03/17 Sildenafil Citrate [Revatio] 20 mg PO TID 09/27/15 10/03/17 Sucralfate [Carafate] 1 gm PO TID 09/27/15 10/03/17 Doxazosin [Cardura] 1 mg PO HS 10/03/17 10/03/17 Nortriptyline HCl 50 mg PO HS 10/03/17 10/03/17 Previous Rx's Medication Instructions Recorded HYDROcodone/Acet 10/325 mg [[place] 1 each PO Q4HR PRN #60 tablet 10/08/17 10-325 mg] Allergies Allergy/AdvReac Type Severity Reaction Status Date / Time codeine Allergy See Verified 10/24/17 04:25 Comments nitrofurantoin Allergy Hives Verified 10/24/17 04:25 [From Macrobid] Penicillins Allergy Hives Verified 10/24/17 04:25 sulfamethoxazole Allergy Hypotension Verified 10/24/17 04:25 [From Septra] Tetracycline Allergy Hives Verified 10/24/17 04:25 trimethoprim [From Septra] Allergy Hypotension Verified 10/24/17 04:25 Sulfa (Sulfonamide AdvReac Hypotension Verified 10/24/17 04:25 Antibiotics) Constitutional: Denies: fever ENT ED: Denies: throat pain Cardiovascular: Denies: chest pain Respiratory: Denies: cough Gastrointestinal: Denies: nausea, vomiting Musculoskeletal: Reports: back pain Integumentary: Denies: rash Past Medical History - Past Medical History Medical history: Reports: asthma, CHF, COPD, GERD, hypertension, myocardial infarction Surgical history: Reports: appendectomy, hysterectomy Psychiatric history: Reports: anxiety, panic disorder - Social History Smoking Status: Never smoker Smokeless Tobacco Status: No Alcohol use: Reports: none Drug use: Reports: none Physical Exam - General Limitations: no limitations General appearance: alert, in no apparent distress - Head Head exam: atraumatic, normocephalic, normal inspection - Eye Eye exam: Present: normal appearance, PERRL, EOMI - ENT ENT exam: normal exam, normal oropharynx, mucous membranes moist - Neck Neck exam: Present: normal inspection - Chest Chest inspection: Present: normal inspection, symmetric chest wall rise - Respiratory Respiratory exam: Present: normal lung sounds bilaterally. Absent: respiratory distress - Cardiovascular Cardiovascular exam: Present: regular rate, normal rhythm - Abdominal Exam Abdominal exam: Present: soft, Non-Tender - Extremities Exam Extremities exam: Present: normal inspection. Absent: pedal edema - Back Exam Back exam: Present: other (New midline lumbar incision out surrounding erythema. Not able to express purulent discharge from the wound old discharge noted.) - Neurological Exam Neurological exam: Present: alert, CN II-XII intact - Expanded Neurological Exam Motor strength - LUE: 5/5 Motor strength - RUE: 5/5 Motor strength - LLE: 5/5 Motor strength - RLE: 5/5 Sensory exam upper extremity: light touch: Normal Sensory exam lower extremity: light touch: Normal DTR: patellar (L): 1+, patellar (R): 2+ Coma Scale Eye Opening: Spontaneous Coma Scale Motor Response: Obeys Commands Coma Scale Verbal Response: Oriented Coma Scale Total: 15 Course Course Narrative: 62-year-old female status post 2 weeks from an L2-L5 spinal fusion with Dr. Mccormick presents for evaluation of acute worsening of her low back pain with radiation to her left hip and leg. Patient reports subjective fevers. Patient was given appropriate pain control and awaiting CT imaging of the TL spine as well as abdominal and pelvic CT. - Reevaluation(s) Reevaluation #1: Patient seen and examined. Patient's in no acute distress. Time: 07:26 - Consultations Consultation #1: Spoke with Dr. Mccormick regarding the CT of the T and L-spine findings. Recommend admission. Time: 07:22 Vital Signs Temperature 99.4 F 10/24/17 04:21 Pulse Rate 117 10/24/17 04:21 Respiratory Rate 20 10/24/17 04:21 Blood Pressure 154/76 10/24/17 04:21 O2 Sat by Pulse Oximetry 94 10/24/17 04:21 Temperature 99.4 F 10/24/17 04:21 Pulse Rate 110 10/24/17 07:37 Respiratory Rate 20 10/24/17 07:37 Blood Pressure 131/69 10/24/17 07:37 O2 Sat by Pulse Oximetry 95 10/24/17 07:37 Oxygen Delivery Oxygen Delivery Nasal Cannula Medical Decision Making - [facility] Narrative Medical decision making narrative: 62-year-old female present for evaluation of back pain. Patient is status postop lumbar fusion. Patient's workup initiated by the prior provider. CT results show possible impingement in the spinal canal of the patient's hardware. Discussed CT findings with the surgeon. Recommends admission for further evaluation. Patient was seen and examined upon my ED arrival. Patient notes with the pain. Patient is neurovascularly intact with subjective left leg weakness. Patient was updated on plan of care. Remain on Keflex. - Lab Data Lab results reviewed: Yes I reviewed the patient's lab results. Result diagrams: 10/24/17 05:32 10/24/17 05:32 Lab Results 10/24/17 10/24/17 10/24/17 Range/Units 05:25 05:32 05:32 WBC 12.8 H (4.3-11.1) K/mcL RBC 3.75 L (3.82-4.97) M/mcL Hgb 8.4 L (11.5-15.4) g/dL Hct 27.6 L (35.3-44.9) % MCV 73.6 L (83.0-100.0) fL MCH 22.4 L (28.0-33.3) pg MCHC 30.4 L (31.6-35.5) g/dL RDW 18.8 H (11.5-14.5) % Plt Count 434 H (140-400) K/mcL MPV 9.6 (9.4-12.4) fL Immature Gran % 1.0 (0-4) % Seg Neutrophils % 81.1 % Lymphocytes % 10.6 % Monocytes % 5.1 % Eosinophils % 2.0 % Basophils % 0.2 % Neutrophils # 10.3 H (1.6-8.9) K/mcL Lymphocytes # 1.4 (0.6-4.6) K/mcL Monocytes # 0.7 (0.0-1.3) K/mcL Eosinophils # 0.3 (0.0-0.6) K/mcL Basophils # 0.0 (0.0-0.2) K/mcL Sodium 136 (136-145) mEq/L Potassium 4.1 (3.5-5.1) mEq/L Chloride 100 (98-107) mEq/L Carbon Dioxide 26 (23-29) mEq/L BUN 10 (8-23) mg/dL Creatinine 0.64 (0.60-1.20) mg/dL Est GFR ( Amer) > 60 (> 60) Est GFR (Non-Af Amer) > 60 (> 60) BUN/Creatinine Ratio 16 (6-26) Glucose 142 H (70-105) mg/dL Calculated Osmolality 283 (280-300) Lactic Acid (0.5-2.2) mmol/L Calcium 9.5 (8.6-10.3) mg/dL Total Bilirubin 1.0 (0.3-1.0) mg/dL Direct Bilirubin 0.5 H (0.0-0.2) mg/dL Indirect Bilirubin 0.5 (0.0-1.2) mg/dL AST 43 H (13-39) Units/L ALT 58 H (7-52) Units/L Alkaline Phosphatase 331 H (34-104) Units/L Serum Total Protein 8.0 (6.4-8.9) g/dL Albumin 3.6 (3.5-5.7) g/dL Globulin 4.4 H (2.4-3.5) g/dL Albumin/Globulin Ratio 0.8 L (1.1-2.2) Lipase < 3 L (11-82) Units/L Urine Color Yellow (Yellow) Urine Clarity Cloudy A (Clear) Urine pH 7.0 (5.0-8.0) pH Units Ur Specific [place] 1.012 (1.010-1.025) Urine Protein Trace (Neg-Trace) mg/dL Urine Glucose (UA) Normal (Normal) mg/dL Urine Ketones Negative (Negative) mg/dL Urine Blood Negative (Negative) Urine Nitrite Negative (Negative) Urine Bilirubin Negative (Negative) Urine Urobilinogen 2.0 H (Normal) mg/dL Ur Leukocyte Esterase Trace H (Negative) Urine Microscopic RBC 0-3 (0-3) per hpf Urine Microscopic WBC 5-15 H (0-3) per hpf Ur Squamous Epith Cells Many H (None-Few) per lpf Urine Bacteria Few (None-Few) per hpf Hyaline Casts None Seen (None-Few) per lpf Ur Culture Indicated? NO. (NO) 10/24/17 Range/Units 05:32 WBC (4.3-11.1) K/mcL RBC (3.82-4.97) M/mcL Hgb (11.5-15.4) g/dL Hct (35.3-44.9) % MCV (83.0-100.0) fL MCH (28.0-33.3) pg MCHC (31.6-35.5) g/dL RDW (11.5-14.5) % Plt Count (140-400) K/mcL MPV (9.4-12.4) fL Immature Gran % (0-4) % Seg Neutrophils % % Lymphocytes % % Monocytes % % Eosinophils % % Basophils % % Neutrophils # (1.6-8.9) K/mcL Lymphocytes # (0.6-4.6) K/mcL Monocytes # (0.0-1.3) K/mcL Eosinophils # (0.0-0.6) K/mcL Basophils # (0.0-0.2) K/mcL Sodium (136-145) mEq/L Potassium (3.5-5.1) mEq/L Chloride (98-107) mEq/L Carbon Dioxide (23-29) mEq/L BUN (8-23) mg/dL Creatinine (0.60-1.20) mg/dL Est GFR ( Amer) (> 60) Est GFR (Non-Af Amer) (> 60) BUN/Creatinine Ratio (6-26) Glucose (70-105) mg/dL Calculated Osmolality (280-300) Lactic Acid 1.2 (0.5-2.2) mmol/L Calcium (8.6-10.3) mg/dL Total Bilirubin (0.3-1.0) mg/dL Direct Bilirubin (0.0-0.2) mg/dL Indirect Bilirubin (0.0-1.2) mg/dL AST (13-39) Units/L ALT (7-52) Units/L Alkaline Phosphatase (34-104) Units/L Serum Total Protein (6.4-8.9) g/dL Albumin (3.5-5.7) g/dL Globulin (2.4-3.5) g/dL Albumin/Globulin Ratio (1.1-2.2) Lipase (11-82) Units/L Urine Color (Yellow) Urine Clarity (Clear) Urine pH (5.0-8.0) pH Units Ur Specific [place] (1.010-1.025) Urine Protein (Neg-Trace) mg/dL Urine Glucose (UA) (Normal) mg/dL Urine Ketones (Negative) mg/dL Urine Blood (Negative) Urine Nitrite (Negative) Urine Bilirubin (Negative) Urine Urobilinogen (Normal) mg/dL Ur Leukocyte Esterase (Negative) Urine Microscopic RBC (0-3) per hpf Urine Microscopic WBC (0-3) per hpf Ur Squamous Epith Cells (None-Few) per lpf Urine Bacteria (None-Few) per hpf Hyaline Casts (None-Few) per lpf Ur Culture Indicated? (NO) - Radiology Data Radiology results reviewed: Yes I reviewed the patient's radiology results. Lumbar Spine CT 10/24/17 04:47 IMPRESSION: Right L3, right L4, and left L5 pedicle screw extends medially to the pedicles, and appears to be extending through the lateral aspect of the spinal canal. Possibility of injury to the nerve roots or spinal cord would not be excluded. Recommend surgical consultation. Status post posterior spinal fusion from L2 through L5, with the surgical hardware as detailed above. There is soft tissue stranding and fluid collection posterior to the spinal canal. Multiple bony fragments on the left at the level of the L4-L5, which appears to extend into the neural foramina. There is a spiculated pulmonary nodule within the right lung apex measuring 8 mm. Possibility of malignancy should be considered. Recommend further evaluation with PET CT. Cardiomegaly. D/ / 10/24/2017 07:18:35 Loi Trejo MD / ifeoma Interpreting Provider: Loi Trejo MD Thoracic Spine CT 10/24/17 04:47 IMPRESSION: Right L3, right L4, and left L5 pedicle screw extends medially to the pedicles, and appears to be extending through the lateral aspect of the spinal canal. Possibility of injury to the nerve roots or spinal cord would not be excluded. Recommend surgical consultation. Status post posterior spinal fusion from L2 through L5, with the surgical hardware as detailed above. There is soft tissue stranding and fluid collection posterior to the spinal canal. Multiple bony fragments on the left at the level of the L4-L5, which appears to extend into the neural foramina. There is a spiculated pulmonary nodule within the right lung apex measuring 8 mm. Possibility of malignancy should be considered. Recommend further evaluation with PET CT. Cardiomegaly. D/ / 10/24/2017 07:18:35 Loi Trejo MD / ifeoma Interpreting Provider: Loi Trejo MD Abdomen/Pelvis CT 10/24/17 05:07 IMPRESSION: 1. Postsurgical changes are noted from appendectomy without postsurgical complication. 2. Cardiomegaly. 3. Nodular contour of the liver, suggestive of early cirrhosis with associated splenomegaly. 4. Cholelithiasis. D/ / 10/24/2017 07:13:15 Pablo Bishop MD / Ema Moore Interpreting Provider: MD [place] Cesar - [place] Situation: Demographics Background: Presenting Complaint Assessment: Vital Signs, Course and respsone to treatment, Patient/Family Expectation Recommendation: Barrier(s) to disposition, Recommendation based on pending studies, treatments, or consults S.B.AJeremy Report Given to: Dr. Devorah Osborne Repor Time: 07:40
[2017-10-24] MEDS ORDERED: *HR* LORazepam 1 MG TABLET PO PRN (09:10)
[2017-10-24] MEDS ORDERED: SUMAtriptan succinate 50 MG TABLET PO PRN (09:10)
[2017-10-24] MEDS ORDERED: Fluticasone Propionate Nasal 50 MCG/SPRAY BOTTLE NS PRN (09:10)
[2017-10-24] MEDS: Ringers Solution, Lactated 1,000 ML IVC SCH (10:26)
[2017-10-24] MEDS: Furosemide 20 MG TABLET PO SCH (10:27)
[2017-10-24] MEDS: Aspirin Enteric Coated 81 MG Tablet PO SCH (11:40)
[2017-10-24] MEDS: Sucralfate 1 GM TABLET PO SCH ×2 (14:28→20:27)
[2017-10-24] MEDS: Sildenafil Citrate 20 MG TABLET PO SCH ×2 (14:28→20:26)
[2017-10-24] MEDS: *HR* HYDROmorphone (PF) 1 MG/ML SYRINGE IVP PRN ×2 (15:18→22:16)
[2017-10-24] MEDS: Loratadine 10 MG TABLET PO SCH (18:14)
[2017-10-24] MEDS: *HR* HYDROcodone/Acet 5/325 mg TABLET PO PRN (18:15)
[2017-10-25] MEDS: *HR* HYDROmorphone (PF) 1 MG/ML SYRINGE IVP PRN ×3 (03:55→20:25)
[2017-10-25] MEDS: Ringers Solution, Lactated 1,000 ML IVC SCH ×2 (04:05→15:31)
[2017-10-25] MEDS: *HR* HYDROcodone/Acet 5/325 mg TABLET PO PRN ×3 (06:12→17:02)
[2017-10-25] MEDS: *HR* Morphine 2 MG/ML SYRINGE IVP PRN ×2 (08:50→15:37)
[2017-10-25] MEDS: Sucralfate 1 GM TABLET PO SCH ×3 (08:51→20:24)
[2017-10-25] MEDS: Furosemide 20 MG TABLET PO SCH (08:51)
[2017-10-25] MEDS: Aspirin Enteric Coated 81 MG Tablet PO SCH (08:51)
[2017-10-25] MEDS: Sildenafil Citrate 20 MG TABLET PO SCH ×3 (08:51→20:25)
[2017-10-25] MEDS: Loratadine 10 MG TABLET PO SCH (17:11)
[2017-10-25 19:40] LABS: INR 1.3
[2017-10-25 19:46] LABS: BUN/Creatinine Ratio 15 (6-26); Blood Urea Nitrogen 10 mg/dL (8-23); Calcium 8.5 mg/dL (8.6-10.3); Carbon Dioxide 27 mEq/L (23-29); Chloride 103 mEq/L (98-107); Glucose 147 mg/dL (70-105); Osmolality,Calculated 286 (280-300); Potassium 3.4 mEq/L (3.5-5.1); Sodium 137 mEq/L (136-145); eGFR For African Americans > 60 (> 60); eGFR For Non-African Americans > 60 (> 60)
[2017-10-26] MEDS: *HR* HYDROcodone/Acet 5/325 mg TABLET PO PRN ×4 (00:30→23:45)
[2017-10-26] MEDS: *HR* HYDROmorphone (PF) 1 MG/ML SYRINGE IVP PRN ×3 (05:57→20:00)
[2017-10-26] MEDS: 0.9 % Sodium Chloride 250 ML IVC SCH ×2 (07:23→07:24)
--- NOTE | 2017-10-26 07:59 | Spine - History & Physical Rep ---
Date of Encounter: 10/25/17 Time of Encounter: 08:05 Assessment and Plan (1) Degenerative scoliosis in adult patient Current visit: No Status: Chronic On examination she is lying in bed uncomfortable complaining of back pain. Afebrile vital signs stable. Neck is supple. There is no JVD. Lungs are clear to auscultation. Cardiovascular is regular rate and rhythm. Abdomen is obese but nontender. There is no rebound or guarding. She is neurovascularly intact with regard to her bilateral lower extremities. Her hips move symmetrically. There is no clonus. There is no clubbing cyanosis or edema. CT scan of the abdomen and pelvis dated 2017 reveals a degenerative scoliosis with instrumentation spanning L2-L5. There is some breech of the medial cortex of the pedicle and the left L5 screw of the right L3-L4 screws into the lateral recesses. There is no significant fluid collection detected other than postsurgical changes. Impression: 1) lumbar wound drainage status post posterior lumbar interbody fusion L2-L5 2) malposition/failed hardware lumbar spine Plan: is admitted for definitive management. This required surgery in the form of irrigation and debridement of the lumbar wound. Evaluate intraoperatively whether there is a seroma present any evidence of infection. In addition, we will check of the pedicle screws and removal/replacement any screws which are deemed to be in contact or displacing nerve roots which may cause irritation and radiculopathy. Risk benefits possible complications and alternatives were fully discussed with the patient and the patient would like to proceed. History of Present Illness Chief complaint: Lumbar wound drainage, back and abdominal pain HPI: Ms. Marcial is a 62 year old female who is status post posterior lumbar interbody fusion L2-L5 approximately a month ago. She was doing reasonably well and developed some serosanguineous drainage from her back couple days ago. She was seen by the physician plumber's assistant and placed on Keflex. She denied fevers or chills at that time. She also developed increasing back and lower extremity pain. She came back to the emergency department where decision was made to admit secondary to intractable pain and continued lumbar drainage. CT scan of the lumbar spine also revealed failed/malpositioned hardware. She denies any weakness. She denies any bowel bladder symptomatology. Past Med Surg Social Fam HX - Past Medical History Medical history: asthma, CHF, COPD, GERD, hypertension, myocardial infarction Psychiatric history: anxiety, panic disorder - Past Surgical History Surgical History: appendectomy, hysterectomy - Social History Smoking Status: Never smoker Smokeless Tobacco Status: No Alcohol use: none Drug use: none Medications and Allergies Albuterol Sulfate [Proventil Hfa] 2 puff IH Q4H PRN 09/27/15 [History] Aspirin Enteric Coated [Aspirin EC] 81 mg PO QAM 09/27/15 [History] Cetirizine HCl [Zyrtec] 10 mg PO QPM 09/27/15 [History] Clopidogrel [Plavix] 75 mg PO QAM 09/27/15 [History] Cyclobenzaprine [Flexeril] 5 mg PO TID PRN 09/27/15 [History] Diclofenac Sodium [Voltaren] 50 mg PO TID 09/27/15 [History] Esomeprazole Magnesium [Nexium] 40 mg PO BID 09/27/15 [History] Fluticasone Propionate Nasal [Flonase] 50 mcg NS DAILY PRN 09/27/15 [History] Furosemide [Lasix] 20 mg PO QAM 09/27/15 [History] LORazepam [Ativan] 1 mg PO TID PRN 09/27/15 [History] Lisinopril [Zestril] 2.5 mg PO QAM 09/27/15 [History] Montelukast [Singulair] 10 mg PO QAM 09/27/15 [History] SUMAtriptan succinate [Imitrex] 50 mg PO AD PRN 09/27/15 [History] Sertraline [Zoloft] 100 mg PO QPM 09/27/15 [History] Sildenafil Citrate [Revatio] 20 mg PO TID 09/27/15 [History] Sucralfate [Carafate] 1 gm PO TID 09/27/15 [History] Doxazosin [Cardura] 1 mg PO HS 10/03/17 [History] Nortriptyline HCl 50 mg PO HS 10/03/17 [History] HYDROcodone/Acet 10/325 mg [[place] 10-325 mg] 1 each PO Q4HR PRN #60 tablet 10/08 [Rx] 3 Allergy/AdvReac Type Severity Reaction Status Date / Time codeine Allergy See Verified 10/24/17 04:25 Comments nitrofurantoin Allergy Hives Verified 10/24/17 04:25 [From Macrobid] Penicillins Allergy Hives Verified 10/24/17 04:25 sulfamethoxazole Allergy Hypotension Verified 10/24/17 04:25 [From Septra] Tetracycline Allergy Hives Verified 10/24/17 04:25 trimethoprim [From ] Allergy Hypotension Verified 10/24/17 04:25 Sulfa (Sulfonamide AdvReac Hypotension Verified 10/24/17 04:25 Antibiotics) Results - Labs Result Diagrams: 10/24/17 05:32 10/25/17 19:17 Labs: Abnormal lab results WBC 12.8 K/mcL (4.3-11.1) H 10/24/17 05:32 RBC 3.75 M/mcL (3.82-4.97) L 10/24/17 05:32 Hgb 8.4 g/dL (11.5-15.4) L 10/24/17 05:32 Hct 27.6 % (35.3-44.9) L 10/24/17 05:32 MCV 73.6 fL (83.0-100.0) L 10/24/17 05:32 MCH 22.4 pg (28.0-33.3) L 10/24/17 05:32 MCHC 30.4 g/dL (31.6-35.5) L 10/24/17 05:32 RDW 18.8 % (11.5-14.5) H 10/24/17 05:32 Plt Count 434 K/mcL (140-400) H 10/24/17 05:32 Neutrophils # 10.3 K/mcL (1.6-8.9) H 10/24/17 05:32 PT 14.0 Seconds (9.4-12.1) H 10/25/17 19:17 Potassium 3.4 mEq/L (3.5-5.1) L 10/25/17 19:17 Glucose 147 mg/dL (70-105) H 10/25/17 19:17 Calcium 8.5 mg/dL (8.6-10.3) L 10/25/17 19:17 Direct Bilirubin 0.5 mg/dL (0.0-0.2) H 10/24/17 05:32 AST 43 Units/L (13-39) H 10/24/17 05:32 ALT 58 Units/L (7-52) H 10/24/17 05:32 Alkaline Phosphatase 331 Units/L (34-104) H 10/24/17 05:32 Globulin 4.4 g/dL (2.4-3.5) H 10/24/17 05:32 Albumin/Globulin Ratio 0.8 (1.1-2.2) L 10/24/17 05:32 Lipase < 3 Units/L (11-82) L 10/24/17 05:32 Urine Clarity Cloudy (Clear) A 10/24/17 05:25 Urine Urobilinogen 2.0 mg/dL (Normal) H 10/24/17 05:25 Ur Leukocyte Esterase Trace (Negative) H 10/24/17 05:25 Urine Microscopic WBC 5-15 per hpf (0-3) H 10/24/17 05:25 Ur Squamous Epith Cells Many per lpf (None-Few) H 10/24/17 05:25 All other labs normal. - VTE Documentation of Mechanical Device: Intermittent pneumatic compression device
[2017-10-26 08:38] LABS: Basophils % 0.2 %; Eosinophils # 0.4 K/mcL (0.0-0.6); Eosinophils % 4.7 %; Hematocrit 29.9 % (35.3-44.9); Immature Granulocytes % 0.7 % (0-4); Lymphocytes % 10.8 %; Mean Corpuscular HGB Conc 30.1 g/dL (31.6-35.5); Mean Corpuscular Hemoglobin 23.2 pg (28.0-33.3); Mean Corpuscular Volume 77.1 fL (83.0-100.0); Mean Platelet Volume 10.1 fL (9.4-12.4); Monocytes # 0.7 K/mcL (0.0-1.3); Monocytes % 7.6 %; Neutrophils # 6.7 K/mcL (1.6-8.9); Nucleated Red Blood Cells 0.3 /100 WBC (0); Platelet Count 363 K/mcL (140-400); Red Blood Count 3.88 M/mcL (3.82-4.97)
[2017-10-26] MEDS: Aspirin Enteric Coated 81 MG Tablet PO SCH (09:11)
[2017-10-26] MEDS: Furosemide 20 MG TABLET PO SCH (09:12)
[2017-10-26] MEDS: Sucralfate 1 GM TABLET PO SCH ×3 (09:12→20:01)
[2017-10-26] MEDS: Sildenafil Citrate 20 MG TABLET PO SCH ×3 (09:24→20:02)
[2017-10-26 11:35] LABS: Bilirubin,Urine Small (Negative); Blood,Urine Negative (Negative); Clarity,Urine Cloudy (Clear); Color,Urine Dark Yellow (Yellow); Glucose,Urine (UA) Normal (Normal); Ketones,Urine Negative (Negative); Leukocyte Esterase,Urine Negative (Negative); Nitrite,Urine Negative (Negative); Protein,Urine Trace mg/dL (Neg-Trace); Specific Gravity,Urine 1.019 (1.010-1.025); Urobilinogen,Urine >=8.0 mg/dL (Normal)
[2017-10-26 11:38] LABS: Bacteria,Urine None Seen per hpf (None-Few); Hyaline Casts,Urine None Seen per lpf (None-Few); Squamous Epithelial Cell,Urine Many per lpf (None-Few)
[2017-10-26 12:06] LABS: RBC,Urine 0-3 per hpf (0-3)
[2017-10-26] MEDS ORDERED: Bacitracin 50,000 UNIT, Polymyxin B Sulfate 500,000 UNIT, Sodium Chloride IRRigation 1,... IR ONE (17:30)
[2017-10-26] MEDS: Ondansetron 4 MG/2 ML VIAL IVP PRN (17:47)
[2017-10-26] MEDS ORDERED: *HR* Promethazine 25 MG/ML VIAL IVP PRN (17:58)
--- NOTE | 2017-10-26 18:38 | Spine Progress Note ---
Date of Encounter: 10/26/17 Time of Encounter: 18:36 - Assessment and Plan (1) Degenerative scoliosis in adult patient Current Visit: No Status: Chronic On examination she is lying in bed uncomfortable complaining of back pain. Afebrile vital signs stable. Neck is supple. There is no JVD. Lungs are clear to auscultation. Cardiovascular is regular rate and rhythm. Abdomen is obese but nontender. There is no rebound or guarding. She is neurovascularly intact with regard to her bilateral lower extremities. Her hips move symmetrically. There is no clonus. There is no clubbing cyanosis or edema. CT scan of the abdomen and pelvis dated 2017 reveals a degenerative scoliosis with instrumentation spanning L2-L5. There is some breech of the medial cortex of the pedicle and the left L5 screw of the right L3-L4 screws into the lateral recesses. There is no significant fluid collection detected other than postsurgical changes. Impression: 1) lumbar wound drainage status post posterior lumbar interbody fusion L2-L5 2) malposition/failed hardware lumbar spine Plan: is admitted for definitive management. This required surgery in the form of irrigation and debridement of the lumbar wound. Evaluate intraoperatively whether there is a seroma present any evidence of infection. In addition, we will check of the pedicle screws and removal/replacement any screws which are deemed to be in contact or displacing nerve roots which may cause irritation and radiculopathy. Risk benefits possible complications and alternatives were fully discussed with the patient and the patient would like to proceed. Subjective Principal diagnosis: Lumbar wound drainage Interval history: Maria Esther significant pain with some drainage. She has been transfused 2 units of PRBCs. Her hemoglobin is now 9 at which is near baseline. She is going to get blood cultures as well as start antiemetics as she is now having some nausea/ emesis. Plan is to perform elective surgical intervention in the form of irrigation and debridement, removal/replacement hardware on Sunday. Objective Vital signs: Vital Signs Temp Pulse Resp BP Pulse Ox 10/26/17 17:48 98.1 F 10/26/17 11:50 98.9 F 101 17 144/81 97 10/26/17 06:18 98.5 F 100 15 142/84 93 10/26/17 06:00 98.5 F 100 15 142/84 93 10/26/17 05:05 97.7 F 85 14 129/74 94 10/26/17 03:13 98.4 F 101 16 132/77 92 10/26/17 02:58 98.5 F 100 16 133/69 92 10/26/17 02:54 98.5 F 101 16 133/69 92 10/26/17 02:24 98.4 F 100 16 136/73 94 10/25/17 23:28 98.3 F 99 15 121/60 94 10/25/17 23:13 98.6 F 69 16 113/70 90 10/25/17 19:26 98.3 F 96 17 108/68 92 Intake and Output 10/26/17 10/26/17 10/26/17 07:59 15:59 23:59 Intake Total 1300 / 1300 Output Total 500 / 500 300 / 300 Balance 800 / 800 -300 / -300 Intake: IV Fluids 250 / 250 0.9 % Sodium Chloride 250 ML @ 250 / 250 25 mls/hr IVC .Q10H [facility] Rx#: [id number] Blood Product 1050 / 1050 Rbcs Leuko Poor As-1 Unit 700 / 700 [id number] Rbcs Leuko Poor As-3 2nd Unit 350 / 350 [id number] Output: Urine 500 / 500 300 / 300 Other: Stool Size Large Moderate Stool Consistency soft formed Stool Color Brown Brown - Labs CBC & BMP: 10/26/17 06:43 10/25/17 19:17 Labs: Abnormal lab results Hgb 9.0 g/dL (11.5-15.4) L 10/26/17 06:43 Hct 29.9 % (35.3-44.9) L 10/26/17 06:43 MCV 77.1 fL (83.0-100.0) L 10/26/17 06:43 MCH 23.2 pg (28.0-33.3) L 10/26/17 06:43 MCHC 30.1 g/dL (31.6-35.5) L 10/26/17 06:43 RDW 19.0 % (11.5-14.5) H 10/26/17 06:43 Nucleated RBCs/100 WBC 0.3 /100 WBC (0) H 10/26/17 06:43 PT 14.0 Seconds (9.4-12.1) H 10/25/17 19:17 Potassium 3.4 mEq/L (3.5-5.1) L 10/25/17 19:17 Glucose 147 mg/dL (70-105) H 10/25/17 19:17 Calcium 8.5 mg/dL (8.6-10.3) L 10/25/17 19:17 Direct Bilirubin 0.5 mg/dL (0.0-0.2) H 10/24/17 05:32 AST 43 Units/L (13-39) H 10/24/17 05:32 ALT 58 Units/L (7-52) H 10/24/17 05:32 Alkaline Phosphatase 331 Units/L (34-104) H 10/24/17 05:32 Globulin 4.4 g/dL (2.4-3.5) H 10/24/17 05:32 Albumin/Globulin Ratio 0.8 (1.1-2.2) L 10/24/17 05:32 Lipase < 3 Units/L (11-82) L 10/24/17 05:32 Urine Clarity Cloudy (Clear) A 10/26/17 11:20 Urine Bilirubin Small (Negative) H 10/26/17 11:20 Urine Urobilinogen >=8.0 mg/dL (Normal) H 10/26/17 11:20 Urine Microscopic WBC 5-15 per hpf (0-3) H 10/26/17 11:20 Ur Squamous Epith Cells Many per lpf (None-Few) H 10/26/17 11:20 Consult Discharge Plan - Plan Referrals: Dominic Martins Jr, MD [Primary Care Provider] -
[2017-10-26] MEDS: Loratadine 10 MG TABLET PO SCH (18:43)
[2017-10-26] MEDS: *HR* Morphine 2 MG/ML SYRINGE IVP PRN (21:44)
[2017-10-27] MEDS: *HR* Morphine 2 MG/ML SYRINGE IVP PRN ×3 (04:42→19:42)
[2017-10-27] MEDS: *HR* HYDROmorphone (PF) 1 MG/ML SYRINGE IVP PRN ×3 (08:12→23:49)
[2017-10-27] MEDS: Furosemide 20 MG TABLET PO SCH (08:12)
[2017-10-27] MEDS: Aspirin Enteric Coated 81 MG Tablet PO SCH (08:12)
[2017-10-27] MEDS: Sildenafil Citrate 20 MG TABLET PO SCH ×3 (08:13→19:42)
[2017-10-27] MEDS: Sucralfate 1 GM TABLET PO SCH ×3 (08:13→19:42)
--- NOTE | 2017-10-27 14:53 | Orthopedics Progress Note ---
Date of Encounter: 10/27/17 Time of Encounter: 14:52 Subjective Principal diagnosis: Lumbar wound drainage Interval history: The patient was seen and evaluated today and has no new complaints. Moderate drainage from the lumbar spine posteriorly. She grossly flexes and extends the lower extremities and they are sensate and well-perfused. Impression: 1) lumbar wound drainage status post posterior lumbar interbody fusion L2-L5 2) malposition/failed hardware lumbar spine Plan: Patient is scheduled for I&D with Dr. Mccormick on Sunday. Objective Vital signs: Vital Signs Temp Pulse Resp BP Pulse Ox 10/27/17 12:30 98.1 F 97 15 120/66 92 10/27/17 07:07 98.4 F 92 14 120/66 97 10/26/17 23:18 98.1 F 102 16 117/71 97 10/26/17 18:54 98.0 F 105 17 120/77 96 10/26/17 17:48 98.1 F Intake and Output 10/26/17 10/27/17 10/27/17 23:59 07:59 15:59 Intake Total 500 / 500 2200 / 2200 240 / 240 Balance 500 / 500 2200 / 2200 240 / 240 Intake: Oral 500 / 500 2200 / 2200 240 / 240 Other: Meal Breakfast Percent of Meal Consumed 80% # Voids 1 7 1 - Labs CBC & BMP: 10/26/17 06:43 10/25/17 19:17 Labs: Abnormal lab results Hgb 9.0 g/dL (11.5-15.4) L 10/26/17 06:43 Hct 29.9 % (35.3-44.9) L 10/26/17 06:43 MCV 77.1 fL (83.0-100.0) L 10/26/17 06:43 MCH 23.2 pg (28.0-33.3) L 10/26/17 06:43 MCHC 30.1 g/dL (31.6-35.5) L 10/26/17 06:43 RDW 19.0 % (11.5-14.5) H 10/26/17 06:43 Nucleated RBCs/100 WBC 0.3 /100 WBC (0) H 10/26/17 06:43 PT 14.0 Seconds (9.4-12.1) H 10/25/17 19:17 Potassium 3.4 mEq/L (3.5-5.1) L 10/25/17 19:17 Glucose 147 mg/dL (70-105) H 10/25/17 19:17 Calcium 8.5 mg/dL (8.6-10.3) L 10/25/17 19:17 Direct Bilirubin 0.5 mg/dL (0.0-0.2) H 10/24/17 05:32 AST 43 Units/L (13-39) H 10/24/17 05:32 ALT 58 Units/L (7-52) H 10/24/17 05:32 Alkaline Phosphatase 331 Units/L (34-104) H 10/24/17 05:32 Globulin 4.4 g/dL (2.4-3.5) H 10/24/17 05:32 Albumin/Globulin Ratio 0.8 (1.1-2.2) L 10/24/17 05:32 Lipase < 3 Units/L (11-82) L 10/24/17 05:32 Urine Clarity Cloudy (Clear) A 10/26/17 11:20 Urine Bilirubin Small (Negative) H 10/26/17 11:20 Urine Urobilinogen >=8.0 mg/dL (Normal) H 10/26/17 11:20 Urine Microscopic WBC 5-15 per hpf (0-3) H 10/26/17 11:20 Ur Squamous Epith Cells Many per lpf (None-Few) H 10/26/17 11:20 - VTE Documentation of Mechanical Device: Intermittent pneumatic compression device Consult Discharge Plan - Plan Referrals: Dominic Martins Jr, MD [Primary Care Provider] -
[2017-10-27] MEDS: Loratadine 10 MG TABLET PO SCH (18:12)
[2017-10-27 19:00] LABS: Acinetobacter baumannii by PCR Not Detected (Not Detect); Candida albicans by PCR Not Detected (Not Detect); Candida glabrata by PCR Not Detected (Not Detect); Candida krusei by PCR Not Detected (Not Detect); Candida parapsilosis by PCR Not Detected (Not Detect); Candida tropicalis by PCR Not Detected (Not Detect); Enterococcus by PCR Not Detected (Not Detect); Escherichia coli by PCR Not Detected (Not Detect); Klebsiella oxytoca by PCR Not Detected (Not Detect); Klebsiella pneumoniae by PCR Not Detected (Not Detect); Pseudomonas aeruginosa by PCR Not Detected (Not Detect); Serratia marcescens by PCR Not Detected (Not Detect); Staphylococcus aureus by PCR Not Detected (Not Detect); Streptococcus agalactiae(B)PCR Not Detected (Not Detect); Streptococcus by PCR Not Detected (Not Detect); Streptococcus pneumoniae PCR Not Detected (Not Detect); Streptococcus pyogenes (A) PCR Not Detected (Not Detect)
[2017-10-27 19:02] LABS: mecA Methicillin-Resist Gene ***DETECTED*** (Not Detect)
--- NOTE | 2017-10-28 00:16 | Event Note ---
Date of Encounter: 10/28/17 Time of Encounter: 00:17 Event note 2 sets of cx positive for GPC Will start IV vanco empirically for now D/w RN to inform primary service in the a.m
[2017-10-28] MEDS: Vancomycin 1,000 MG in D5% in Water 250 ML IVPB SCH ×2 (00:30→13:07)
[2017-10-28] MEDS ORDERED: Vancomycin 0 MG in D5% in Water 250 ML IVPB SCH (01:00)
[2017-10-28] MEDS: *HR* Morphine 2 MG/ML SYRINGE IVP PRN ×4 (02:54→17:53)
[2017-10-28 06:37] LABS: BUN/Creatinine Ratio 15 (6-26); Blood Urea Nitrogen 8 mg/dL (8-23); eGFR For African Americans > 60 (> 60); eGFR For Non-African Americans > 60 (> 60)
[2017-10-28] MEDS: Ondansetron 4 MG/2 ML VIAL IVP PRN (07:30)
[2017-10-28] MEDS: *HR* HYDROmorphone (PF) 1 MG/ML SYRINGE IVP PRN ×2 (09:30→15:33)
[2017-10-28] MEDS: Sildenafil Citrate 20 MG TABLET PO SCH ×3 (09:30→20:47)
[2017-10-28] MEDS: Aspirin Enteric Coated 81 MG Tablet PO SCH (09:30)
[2017-10-28] MEDS: Furosemide 20 MG TABLET PO SCH (09:30)
[2017-10-28] MEDS: Sucralfate 1 GM TABLET PO SCH ×3 (09:30→20:47)
--- NOTE | 2017-10-28 12:10 | Orthopedics Progress Note ---
Date of Encounter: 10/28/17 Time of Encounter: 12:09 Subjective Principal diagnosis: Lumbar wound drainage Interval history: The patient was seen and evaluated today and has no new complaints. Moderate drainage from the lumbar spine posteriorly. She grossly flexes and extends the lower extremities and they are sensate and well-perfused. Blood cultures noted Impression: 1) lumbar wound drainage status post posterior lumbar interbody fusion L2-L5 2) malposition/failed hardware lumbar spine Plan: Patient is scheduled for I&D with Dr. Mccormick on Sunday. Objective Vital signs: Vital Signs Temp Pulse Resp BP Pulse Ox 10/28/17 08:22 98.7 F 102 15 142/85 97 10/27/17 23:59 98.8 F 97 15 137/80 97 10/27/17 20:40 98.7 F 92 16 118/73 92 10/27/17 17:07 98.4 F 95 15 125/77 96 10/27/17 12:30 98.1 F 97 15 120/66 92 Intake and Output 10/27/17 10/28/17 10/28/17 23:59 07:59 15:59 Intake Total 420 / 420 Balance 420 / 420 Intake: Oral 420 / 420 Other: Meal Dinner Percent of Meal Consumed 35% # Voids 1 1 Blood Glucose* 159 - Labs CBC & BMP: 10/26/17 06:43 10/28/17 06:14 Labs: Abnormal lab results Hgb 9.0 g/dL (11.5-15.4) L 10/26/17 06:43 Hct 29.9 % (35.3-44.9) L 10/26/17 06:43 MCV 77.1 fL (83.0-100.0) L 10/26/17 06:43 MCH 23.2 pg (28.0-33.3) L 10/26/17 06:43 MCHC 30.1 g/dL (31.6-35.5) L 10/26/17 06:43 RDW 19.0 % (11.5-14.5) H 10/26/17 06:43 Nucleated RBCs/100 WBC 0.3 /100 WBC (0) H 10/26/17 06:43 PT 14.0 Seconds (9.4-12.1) H 10/25/17 19:17 Potassium 3.4 mEq/L (3.5-5.1) L 10/25/17 19:17 Creatinine 0.53 mg/dL (0.60-1.20) L 10/28/17 06:14 Glucose 147 mg/dL (70-105) H 10/25/17 19:17 POC Glucose 159 (58-89) H 10/27/17 19:23 Calcium 8.5 mg/dL (8.6-10.3) L 10/25/17 19:17 Direct Bilirubin 0.5 mg/dL (0.0-0.2) H 10/24/17 05:32 AST 43 Units/L (13-39) H 10/24/17 05:32 ALT 58 Units/L (7-52) H 10/24/17 05:32 Alkaline Phosphatase 331 Units/L (34-104) H 10/24/17 05:32 Globulin 4.4 g/dL (2.4-3.5) H 10/24/17 05:32 Albumin/Globulin Ratio 0.8 (1.1-2.2) L 10/24/17 05:32 Lipase < 3 Units/L (11-82) L 10/24/17 05:32 Urine Clarity Cloudy (Clear) A 10/26/17 11:20 Urine Bilirubin Small (Negative) H 10/26/17 11:20 Urine Urobilinogen >=8.0 mg/dL (Normal) H 10/26/17 11:20 Urine Microscopic WBC 5-15 per hpf (0-3) H 10/26/17 11:20 Ur Squamous Epith Cells Many per lpf (None-Few) H 10/26/17 11:20 Staphylococcus sp PCR DETECTED (Not Detect) A 10/26/17 18:21 mecA-Methicil Res Gene DETECTED (Not Detect) A 10/26/17 18:21 - VTE Documentation of Mechanical Device: Intermittent pneumatic compression device Consult Discharge Plan - Plan Referrals: Dominic Martins Jr, MD [Primary Care Provider] -
[2017-10-28] MEDS: Loratadine 10 MG TABLET PO SCH (17:53)
[2017-10-28] MEDS: *HR* HYDROcodone/Acet 5/325 mg TABLET PO PRN (20:54)
[2017-10-29] MEDS: Vancomycin 1,000 MG in D5% in Water 250 ML IVPB SCH ×2 (00:07→17:52)
[2017-10-29] MEDS: *HR* Morphine 2 MG/ML SYRINGE IVP PRN (04:04)
[2017-10-29] MEDS: Aspirin Enteric Coated 81 MG Tablet PO SCH (07:14)
[2017-10-29] MEDS: Sucralfate 1 GM TABLET PO SCH (07:14)
[2017-10-29] MEDS: Furosemide 20 MG TABLET PO SCH (07:14)
[2017-10-29] MEDS: Sildenafil Citrate 20 MG TABLET PO SCH (07:14)
[2017-10-29] MEDS ORDERED: *HR* OxyCODONE Immed Rel 5 MG TABLET PO PRN (10:40)
--- NOTE | 2017-10-29 10:51 | Anesthesia Evaluation PreOp ---
Date of Encounter: 10/29/17 Time of Encounter: 12:32 - Past History Planned Operation: I&D lumbar wound, remove/replace hardware Cardiac History: HTN, Pacemaker/ICD (Medtronic dual chamber) Pulmonary History: Asthma, COPD CORPORATE COMMUNICATIONS SPECIALIST History: Denies Any Significant HX Other Medical History: GERD, Other (scleroderma hx) Anesthesia History: Past Anesthesia (pacer, ARMEN, C/S, appy, hernia, right knee, CTR, PLIF Oct), Problems (PONV) Alcohol Use: none Drug use: none Medications and Allergies Albuterol Sulfate [Proventil Hfa] 2 puff IH Q4H PRN 09/27/15 [History] Aspirin Enteric Coated [Aspirin EC] 81 mg PO QAM 09/27/15 [History] Cetirizine HCl [Zyrtec] 10 mg PO QPM 09/27/15 [History] Clopidogrel [Plavix] 75 mg PO QAM 09/27/15 [History] Cyclobenzaprine [Flexeril] 5 mg PO TID PRN 09/27/15 [History] Diclofenac Sodium [Voltaren] 50 mg PO TID 09/27/15 [History] Esomeprazole Magnesium [Nexium] 40 mg PO BID 09/27/15 [History] Fluticasone Propionate Nasal [Flonase] 50 mcg NS DAILY PRN 09/27/15 [History] Furosemide [Lasix] 20 mg PO QAM 09/27/15 [History] LORazepam [Ativan] 1 mg PO TID PRN 09/27/15 [History] Lisinopril [Zestril] 2.5 mg PO QAM 09/27/15 [History] Montelukast [Singulair] 10 mg PO QAM 09/27/15 [History] SUMAtriptan succinate [Imitrex] 50 mg PO AD PRN 09/27/15 [History] Sertraline [Zoloft] 100 mg PO QPM 09/27/15 [History] Sildenafil Citrate [Revatio] 20 mg PO TID 09/27/15 [History] Sucralfate [Carafate] 1 gm PO TID 09/27/15 [History] Doxazosin [Cardura] 1 mg PO HS 10/03/17 [History] Nortriptyline HCl 50 mg PO HS 10/03/17 [History] HYDROcodone/Acet 10/325 mg [[place] 10-325 mg] 1 each PO Q4HR PRN #60 tablet 10/08 [Rx] 3 Allergy/AdvReac Type Severity Reaction Status Date / Time codeine Allergy See Verified 10/24/17 04:25 Comments nitrofurantoin Allergy Hives Verified 10/24/17 04:25 [From Macrobid] Penicillins Allergy Hives Verified 10/24/17 04:25 sulfamethoxazole Allergy Hypotension Verified 10/24/17 04:25 [From Septra] Tetracycline Allergy Hives Verified 10/24/17 04:25 trimethoprim [From Septra] Allergy Hypotension Verified 10/24/17 04:25 Sulfa (Sulfonamide AdvReac Hypotension Verified 10/24/17 04:25 Antibiotics) - Meds/Allergy Pre-op Review Medications Reviewed: Yes Allergies Reviewed: Yes Beta Blockers on Current Med List: No Anesthesia Results - Labs 10/26/17 06:43 10/28/17 06:14 Anesthesia Exam Selected Entries 10/29/17 07:02 Temperature 98.0 F Pulse Rate 90 Respiratory Rate 20 Blood Pressure 130/83 O2 Sat by Pulse Oximetry 96 Oxygen Flow Rate (LPM) 2 Weight: 91kg - HEENT Pupil (Motor): EOMI Mallampati: III Teeth: Normal Oral Opening: Greater than 3 (no problem with airway earlier this month) - CORPORATE COMMUNICATIONS SPECIALIST LOC: Oriented CORPORATE COMMUNICATIONS SPECIALIST Motor: Normal RUE, Normal LUE, Normal RLE, Normal LLE, Normal Face CORPORATE COMMUNICATIONS SPECIALIST Sensory: Normal: RUE, LUE, RLE, LLE, Face - Cardiac Rhythm: Regular (paced) Murmur: None - Pulmonary Breath Sounds: bilateral Clear Respiratory Effort: Symmetrical Anesthesia Assess/Plan ASA Score: 3 Modified Radha Scale for Level of Consciousness: Cooperative, oriented, and tranquil Anesthetic Plan: General Monitoring Plan: Standard Monitors Recovery Plan: PACU (agrees to GA)
[2017-10-29] MEDS ORDERED: *HR* Succinylcholine 200 MG/10 ML VIAL IVP ONE (12:51)
[2017-10-29] MEDS ORDERED: Lidocaine -MPF 2% 2 ML VIAL ONE (12:51)
[2017-10-29] MEDS ORDERED: *HR* FentaNYL (PF) 100 MCG/2 ML VIAL ONE (12:51)
[2017-10-29] MEDS ORDERED: Lidocaine -MPF 4% 5 ML AMPUL ONE (12:51)
[2017-10-29] MEDS ORDERED: Ondansetron 4 MG/2 ML VIAL ONE (12:51)
[2017-10-29] MEDS ORDERED: *HR* Propofol 200 MG/20 ML VIAL IVP ONE (12:51)
[2017-10-29] MEDS ORDERED: Dexamethasone 4 MG/ML VIAL ONE (12:51)
[2017-10-29] MEDS ORDERED: Bacitracin 50,000 UNIT, Polymyxin B Sulfate 500,000 UNIT, Sodium Chloride IRRigation 1,... IR ONE (13:00)
[2017-10-29] MEDS ORDERED: Albuterol 2.5 MG/3 ML NEBULIZER ONE (13:07)
[2017-10-29] MEDS ORDERED: Albuterol 2.5 MG/3 ML NEBULIZER IH ONE (13:14)
[2017-10-29] MEDS ORDERED: Ondansetron 4 MG/2 ML VIAL IVP ONE (13:15)
[2017-10-29] MEDS ORDERED: *HR* Methadone 10 MG TABLET PO SCH (13:15)
[2017-10-29] MEDS ORDERED: Ketamine *HR* 500 MG/10 ML MDV ONE (14:08)
[2017-10-29] MEDS ORDERED: Vancomycin 1,000 MG VIAL ONE (14:25)
[2017-10-29] MEDS ORDERED: EPHEDrine 50 MG/ML VIAL ONE (14:43)
--- NOTE | 2017-10-29 15:17 | Orthopedic Operative Note ---
Date of procedure: 10/29/17 Pre-op diagnosis: Infected lumbar wound, status post lumbar fusion Post-op diagnosis: same Operation/Findings: Irrigation and debridement lumbar wound, removal of hardware, packing lumbar wound: The patient was brought to the operative theater where she underwent general endotracheal anesthesia. She was given antibiotics prior to the start of the procedure. Compression boots and stockings were used for deep vein thrombosis prophylaxis. The patient was placed prone on a Nahum table. The back was prepped and draped in the usual sterile fashion. An incision was marked and centered over the L2-L5 interspaces in the midline utilizing the previous incision.. We used Bovie cautery to make an incision and then this incision was deepened through the lumbar fascia. It was apparent that after making the skin incision that there was purulent material above the fascial layer. This purulent material extended deeply into the subcutaneous fascia and muscular tissues as well. Superficial wound cultures were obtained. Deep wound cultures were obtained. Retractors were placed. The some areas of compromise muscle and subcutaneous tissue which were debrided with a rongeur. Decision was made to remove the instrumentation is this could be an infectious nidus that would hinder antibiotic penetrance. The pedicle screws rods and hardware were removed in standard fashion bilaterally. We then copiously irrigated the wound deeply and superficially with vancomycin impregnated saline. We then packed Betadine diluted Kerlix and packed this deeply into the wound all the way up to the superficial layer. The Betadine soaks dressings were then held in place using 0 Vicryl suture which was used to loosely close the skin. Sterile dressings as well as ABDs were placed over the open wound. The wound was provisionally sealed with Ioban. Patient was turned supine on the hospital bed and extubated. All sponge instrument counts were normal at the end of the procedure. Anesthesia: GETA Surgeon: Preston Mccormick Jr Was there an court assistant present: No Estimated blood loss (cc): 75 Specimen: Superficial wound cultures, deep wound cultures. Condition: stable Disposition: PACU
[2017-10-29] MEDS ORDERED: *HR* Meperidine 25 MG/ML SYRINGE ONE ×4 (15:39→16:30)
[2017-10-29] MEDS: *HR* Meperidine 25 MG/ML SYRINGE IVP PRN ×2 (15:40→16:40)
[2017-10-29] MEDS ORDERED: Acetaminophen IV 1,000 MG/100 ML INFUS..BTL IVPB ONE (16:02)
[2017-10-29] MEDS ORDERED: *HR* Methadone 10 MG TABLET PO ONE (16:15)
[2017-10-29] MEDS ORDERED: *HR* Meperidine 25 MG/ML SYRINGE IVP SCH (16:15)
[2017-10-29] MEDS ORDERED: *HR* Meperidine 25 MG/ML SYRINGE IVP PRN (16:30)
[2017-10-29] MEDS ORDERED: *HR* Midazolam HCl 2 MG/2 ML VIAL ONE (16:42)
[2017-10-29] MEDS ORDERED: *HR* Midazolam HCl 2 MG/2 ML VIAL IVP ONE (16:45)
[2017-10-29] MEDS ORDERED: Ondansetron 4 MG/2 ML VIAL IVP PRN (17:15)
[2017-10-29] MEDS ORDERED: Naloxone 0.4 MG/ML INJ IVP PRN (17:15)
[2017-10-29] MEDS: Ringers Solution, Lactated 1,000 ML IVC SCH (19:58)
[2017-10-29] MEDS: *HR* OxyCODONE Immed Rel 5 MG TABLET PO PRN (23:27)
[2017-10-30] MEDS: traMADol 50 MG TABLET PO PRN ×2 (02:10→09:05)
[2017-10-30] MEDS: *HR* OxyCODONE Immed Rel 5 MG TABLET PO PRN (05:19)
[2017-10-30] MEDS: Vancomycin 1,000 MG in D5% in Water 250 ML IVPB SCH (05:24)
[2017-10-30 07:30] LABS: Basophils % 0.2 %; Eosinophils # 0.1 K/mcL (0.0-0.6); Eosinophils % 0.7 %; Hemoglobin 8.9 g/dL (11.5-15.4); Immature Granulocytes % 0.6 % (0-4); Lymphocytes # 1.6 K/mcL (0.6-4.6); Lymphocytes % 10.8 %; Mean Corpuscular HGB Conc 29.7 g/dL (31.6-35.5); Mean Corpuscular Hemoglobin 23.2 pg (28.0-33.3); Mean Corpuscular Volume 78.1 fL (83.0-100.0); Mean Platelet Volume 9.9 fL (9.4-12.4); Monocytes # 1.3 K/mcL (0.0-1.3); Monocytes % 8.7 %; Nucleated Red Blood Cells 0.1 /100 WBC (0); Platelet Count 383 K/mcL (140-400); Red Blood Count 3.84 M/mcL (3.82-4.97); Red Cell Distribution Width 19.9 % (11.5-14.5)
[2017-10-30 07:32] LABS: Neutrophils # 11.4 K/mcL (1.6-8.9)
[2017-10-30 07:43] LABS: BUN/Creatinine Ratio 17 (6-26); Blood Urea Nitrogen 9 mg/dL (8-23); C-Reactive Protein 53 mg/L (Less than 10); Calcium 8.4 mg/dL (8.6-10.3); Carbon Dioxide 29 mEq/L (23-29); Chloride 100 mEq/L (98-107); Glucose 136 mg/dL (70-105); Osmolality,Calculated 283 (280-300); Potassium 3.2 mEq/L (3.5-5.1); Sodium 136 mEq/L (136-145); eGFR For African Americans > 60 (> 60); eGFR For Non-African Americans > 60 (> 60)
[2017-10-30] MEDS: Ringers Solution, Lactated 1,000 ML IVC SCH ×2 (09:06→21:49)
[2017-10-30] MEDS ORDERED: *HR* OxyCODONE Immed Rel 5 MG TABLET PO PRN (10:26)
[2017-10-30] MEDS: diazePAM 5 MG TABLET PO PRN ×2 (10:47→21:52)
[2017-10-30] MEDS ORDERED: Temazepam 15 MG CAPSULE PO PRN (13:49)
[2017-10-30] MEDS ORDERED: *HR* Promethazine 25 MG/ML VIAL IVP PRN (13:50)
[2017-10-30] MEDS ORDERED: Ondansetron 4 MG/2 ML VIAL IVP PRN (13:51)
[2017-10-30] MEDS ORDERED: Ketorolac 30 MG/ML VIAL IVP ONE (13:53)
--- NOTE | 2017-10-30 13:53 | Infectious Disease Consult ---
Date of Encounter: 10/30/17 Time of Encounter: 13:50 Assessment and Plan (1) Sepsis Status: Acute Assessment and plan: The patient had two SIRS criteria on admission. Likely secondary to bacteria and surgical wound infection. Improved. WBC had normalized, but back up today - likely related to surgery. Tachycardia resolved. Blood cultures drawn 10/26/17 were positive 2/2 sets for S. epi. Repeat CBC/BMP in the AM. Qualifiers: Sepsis type: sepsis due to unspecified organism Qualified Code(s): A41.9 - Sepsis, unspecified organism (2) Bacteremia Status: Acute Assessment and plan: Causative organism S. epi. Likely secondary to surgical wound infection. Complicated due to pacemaker. Blood cultures drawn 10/26/17 are positive 2/2 sets for S. epi. No endocarditis stigmata noted on exam. The patient has two minor Modified Martinez' s Criteria. Repeat blood cultures x 2 sets now. Get a TTE to evaluate for endocarditis. Low index of suspicion for IE at this point. Continue Vancomycin IV. Pharmacy to dose. Goal trough ~15. Vanc trough scheduled to be drawn before this evening's dose. Duration of treatment depends on the clinical picture, but likely 6 weeks due to the surgical wound infection being very deep and concern for OM. Monitor renal function and dose-adjust antibiotics. Avoid inserting central venous access until repeat blood cultures are negative x 48 hours. (3) Surgical wound infection Status: Acute Assessment and plan: Causative organism unclear, but likely S. epi given the blood culture results. Etiology unclear. Status post PLIF L2-L5 10/03/[address] Mccormick. Failed outpatient oral antibiotics (Keflex). CT of the T-spine and L-spine showed findings concerning for displacement of the hardware. No pre-op inflammatory markers were checked. Ortho consulted and following. Status post I & D of the lumbar wound with removal of the hardware and packing of the lumbar wound 10/29/[address] Mccormick. Operative note reviewed. Gross purulence deep into the subcutaneous fascia and muscle. Intra-op cultures pending, but I spoke with micro and they tell me there is light growth of something, but they are not yet sure what it is. Check ESR. Continue Vancomycin IV. Pharmacy to dose. Goal trough ~15. Duration of treatment depends on the clinical picture, but likely 6 weeks due to the extent of the infection. Risks, benefits, and alternatives of long-term IV antibiotics discussed with the patient and her sister. All questions were answered and the patient is agreeable to proceed with long-term IV antibiotics. Monitor renal function and for drug toxicity and dose-adjust antibiotics. Avoid insertion of central venous access until repeat blood cultures are negative x 48 hours. Qualifiers: Encounter type: initial encounter Qualified Code(s): T81.4XXA - Infection following a procedure, initial encounter (4) Degenerative scoliosis in adult patient Status: Chronic Assessment and plan: Status post PILF L2-L5 10/03/[address] Mccormick. Hardware removed during the most recent surgery due to infection. Further management per Dr. Mccormick. (5) Lumbar stenosis Status: Chronic Assessment and plan: Status post PILF L2-L5 10/03/[address] Mccormick. Hardware removed during the most recent surgery due to infection. Further management per Dr. Mccormick. Qualifiers: Neurogenic claudication status: with neurogenic claudication Qualified Code (s): M48.062 - Spinal stenosis, lumbar region with neurogenic claudication (6) Lumbar radiculopathy Status: Chronic Assessment and plan: Status post PILF L2-L5 10/03/[address] Mccormick. Hardware removed during the most recent surgery due to infection. Further management per Dr. Mccormick. (7) Back pain Status: Acute Assessment and plan: Likely secondary to recent surgical procedure. Pain management per Dr. Mccormick's recommendations. Qualifiers: Back pain location: low back pain Chronicity: acute Back pain laterality : unspecified Sciatica presence: unspecified whether sciatica present Qualified Code(s): M54.5 - Low back pain (8) Status post lumbar spinal fusion Status: Acute Assessment and plan: Status post PILF L2-L5 10/03/[address] Mccormick. Hardware removed during the most recent surgery due to infection. Further management per Dr. Mccormick. Infectious Disease HPI - Data of Consult Patient: new to practice Consult date: 10/30/17 Requesting Physician: Preston Mccormick Jr MD Primary Care Provider: Dominic Martins Jr, MD - Consult Narrative Reason for consult: Bacteremia, lumbar wound infection History of present illness: Ms. Marcial is a 62 year old female with past medical history of CHF, COPD, hypertension, MT, and degenerative scoliosis, with lumbar stenosis and lumbar radiculopathy status post posterior lumbar interbody fusion of L2 and L5 October 03, [address] Mccormick. The patient was eventually the hospital October 24 for lumbar surgical wound infection. We are consulted October 30 for antibiotic recommendations regarding surgical wound infection. Briefly, the patient's a 62-year-old female with past medical history as stated above. The patient underwent a posterior lumbar interbody fusion of L2-L5 for degenerative scoliosis, lumbar stenosis, and lumbar radiculopathy e by Dr. Mccormick on October 03, 2017. she did well postoperatively until a couple of days prior to admission when she began to have some serous drainage from her wound. She was seen by orthopedics and placed on oral Keflex. She continued to have progressive worsening pain and subjective fevers and presented to the emergency department. Upon arrival, she had a low-grade fever and was tachycardic and had leukocytosis. Lactic acid and renal function were normal. She was also anemic with a hemoglobin of 8.4. Urinalysis was negative. She had a CT of the thoracic and lumbar spines that showed screws to the lateral aspect of the spinal canal as well as soft tissue stranding and fluid collection posterior to the spinal canal concerning for infection. 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 Orthopedics was consulted and recommended admission to the hospitalist service for further evaluation. She was started empirically on IV antibiotics and admitted to the hospital for further evaluation. Since admission, the patient's WBC was normal until today it came back elevated at 14. She was evaluated by Dr. Mccormick on admission. He recommended operative management with removal of the hardware and irrigation and debridement. The patient was taken to the operating room on October 29. Operative note revealed pus that was deep to the subcutaneous fascia and muscle. Due to concern of seeding of the hardware, the hardware was removed and the lumbar wound was packed. Intraoperative cultures were obtained and are currently pending. I did speak with a micro-lab and they tell me that there is light growth of something, but they're unable to identify it at this point. Blood cultures were obtained on October 26 were +2 out of 2 sets for staph epi. Postoperative CRP is 53. Currently, the patient is on IV Vancomycin. We've been asked to evaluate and make further recommendations. During my exam today, the patient endorses a history as stated above. She states that the pain in her lower back was at the incision site with radiation to the left lower extremity down to the ankle. He reported moderate amount of drainage from the incision that was orange in color and foul-smelling. She is unsure if it was red around the surgical site or not. She denied any numbness or tingling. She denies any fevers or chills or rigors. She denies any headache or neck pain. She denies any congestion, earache, or sore throat. She denies any chest pain, shortness of breath, or cough. She denies nausea, vomiting, diarrhea, or constipation. She denies any urinary complaints, abdominal pain, or appetite changes. Currently, she does report a poor appetite. At this time, she states that her back pain is improved since she received pain medication and states it is no longer radiating down her leg. She currently denies any numbness or tingling. She denies oral thrush or new skin lesions. She states she is going back to surgery tomorrow for wound closure. The home with her . 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 She denies any tobacco, alcohol, or illicit drug use. CC: Preston Mccormick Jr MD Past Med Surg Social Fam HX - Past Medical History Attestation: Yes The following information was validated with the patient. Source: patient, old records reviewed, nursing notes reviewed Medical history: asthma, CHF, COPD, GERD, hypertension, myocardial infarction Psychiatric history: anxiety, panic disorder - Past Surgical History Surgical History: appendectomy, hysterectomy, pacemaker/AICD - Social History Smoking Status: Never smoker Smokeless Tobacco Status: No Alcohol use: none Drug use: none Occupational status: retired Current living situation: Home, With Family Activity Level: Independent ambulation Recent Out of Country Travel Within the Last 8 Weeks: No Exposure or Possible Exposure to Illness During Travel: No Infectious Disease-CN:Meds Albuterol Sulfate [Proventil Hfa] 2 puff IH Q4H PRN 09/27/15 [History] Aspirin Enteric Coated [Aspirin EC] 81 mg PO QAM 09/27/15 [History] Cetirizine HCl [Zyrtec] 10 mg PO QPM 09/27/15 [History] Clopidogrel [Plavix] 75 mg PO QAM 09/27/15 [History] Cyclobenzaprine [Flexeril] 5 mg PO TID PRN 09/27/15 [History] Diclofenac Sodium [Voltaren] 50 mg PO TID 09/27/15 [History] Esomeprazole Magnesium [Nexium] 40 mg PO BID 09/27/15 [History] Fluticasone Propionate Nasal [Flonase] 50 mcg NS DAILY PRN 09/27/15 [History] Furosemide [Lasix] 20 mg PO QAM 09/27/15 [History] LORazepam [Ativan] 1 mg PO TID PRN 09/27/15 [History] Lisinopril [Zestril] 2.5 mg PO QAM 09/27/15 [History] Montelukast [Singulair] 10 mg PO QAM 09/27/15 [History] SUMAtriptan succinate [Imitrex] 50 mg PO AD PRN 09/27/15 [History] Sertraline [Zoloft] 100 mg PO QPM 09/27/15 [History] Sildenafil Citrate [Revatio] 20 mg PO TID 09/27/15 [History] Sucralfate [Carafate] 1 gm PO TID 09/27/15 [History] Doxazosin [Cardura] 1 mg PO HS 10/03/17 [History] Nortriptyline HCl 50 mg PO HS 10/03/17 [History] HYDROcodone/Acet 10/325 mg [[place] 10-325 mg] 1 each PO Q4HR PRN #60 tablet 10/08 [Rx] 3 Allergy/AdvReac Type Severity Reaction Status Date / Time codeine Allergy See Verified 10/24/17 04:25 Comments nitrofurantoin Allergy Hives Verified 10/24/17 04:25 [From Macrobid] Penicillins Allergy Hives Verified 10/24/17 04:25 sulfamethoxazole Allergy Hypotension Verified 10/24/17 04:25 [From Septra] Tetracycline Allergy Hives Verified 10/24/17 04:25 trimethoprim [From Septra] Allergy Hypotension Verified 10/24/17 04:25 Sulfa (Sulfonamide AdvReac Hypotension Verified 10/24/17 04:25 Antibiotics) All systems: reviewed and no additional remarkable complaints except as stated Exam - Constitutional Vitals: Temp Pulse Resp BP Pulse Ox 98.6 F 89 16 135/84 93 10/30/17 13:26 10/30/17 13:26 10/30/17 13:26 10/30/17 13:26 10/30/17 13:26 General appearance: cooperative, no acute distress, obese - Head Head exam: Present: atraumatic, normal inspection, normocephalic - Eye Eye exam: Present: EOMI, normal appearance, PERRL Pupils: Present: normal accommodation Additional comments: No subconjunctival hemorrhage noted. - ENT ENT exam: Present: mucous membranes moist - Neck Neck exam: Present: normal inspection - Respiratory Respiratory exam: Present: CTAB. Absent: rales, respiratory distress, rhonchi, wheezes Additional comments: Pacemaker noted to the left upper chest without redness, warmth, or drainage. - Cardiovascular Cardiovascular exam: Present: RRR, +S1, +S2 - GI/Abdominal GI/Abdominal exam: Present: normal bowel sounds, soft. Absent: distended, tenderness - Extremities Exam Extremities exam: Present: normal inspection. Absent: joint swelling, pedal edema, tenderness - Back Exam Additional comments: Post-op dressing C/D/I. No surrounding erythema noted. - Neurological Exam Neurological exam: Present: alert, oriented X3, no focal deficits Additional comments: + PMS to the distal extremities x 4. - Psychiatric Psychiatric exam: Present: normal affect, normal mood - Skin Skin exam: Present: dry, intact, normal color, warm Infectious Disease CN: Results - Labs CBC & Chem 7: 10/30/17 07:00 10/30/17 07:00 Cultures: Cultures 10/29/17 15:11 Wound Culture - Preliminary Other-Specify in Comments 10/29/17 15:11 Wound Culture - Preliminary Other-Specify in Comments 10/26/17 18:21 Blood Culture - Final Peripheral Venipuncture Staphylococcus epidermidis 10/26/17 18:21 Blood Culture - Final Peripheral Venipuncture Staphylococcus epidermidis Serology: Serology 10/26/17 10/26/17 10/24/17 Range/Units 18:21 11:20 05:25 Urine Color Dark Yellow Yellow (Yellow) Urine Clarity Cloudy A Cloudy A (Clear) Urine pH 7.0 7.0 (5.0-8.0) pH Units Ur Specific [place] 1.019 1.012 (1.010-1.025) Urine Protein Trace Trace (Neg-Trace) mg/dL Urine Glucose (UA) Normal Normal (Normal) mg/dL Urine Ketones Negative Negative (Negative) mg/dL Urine Blood Negative Negative (Negative) Urine Nitrite Negative Negative (Negative) Urine Bilirubin Small H Negative (Negative) Urine Urobilinogen >=8.0 H 2.0 H (Normal) mg/dL Ur Leukocyte Esterase Negative Trace H (Negative) Urine Microscopic RBC 0-3 0-3 (0-3) per hpf Urine Microscopic WBC 5-15 H 5-15 H (0-3) per hpf Ur Squamous Epith Cells Many H Many H (None-Few) per lpf Urine Bacteria None Seen Few (None-Few) per hpf Hyaline Casts None Seen None Seen (None-Few) per lpf Ur Culture Indicated? NO NO. (NO) A. baumannii (PCR) Not Detected (Not Detect) Meagan albicans (PCR) Not Detected (Not Detect) C. glabrata (PCR) Not Detected (Not Detect) C. krusei (PCR) Not Detected (Not Detect) C. parapsilosis (PCR) Not Detected (Not Detect) C. tropicalis (PCR) Not Detected (Not Detect) Enterobacteriac sp PCR Not Detected (Not Detect) E. cloacae complex PCR Not Detected (Not Detect) Enterococcus sp PCR Not Detected (Not Detect) E. coli (PCR) Not Detected (Not Detect) H. influenzae (PCR) Not Detected (Not Detect) Klebsiella oxytoca PCR Not Detected (Not Detect) Klebsiella pneumoniae Not Detected (Not Detect) List. monocytogenes PCR Not Detected (Not Detect) N. meningitidis (PCR) Not Detected (Not Detect) Proteus species (PCR) Not Detected (Not Detect) Serratia marcescens PCR Not Detected (Not Detect) Staphylococcus sp PCR DETECTED A (Not Detect) Staph aureus (PCR) Not Detected (Not Detect) mecA-Methicil Res Gene DETECTED A (Not Detect) Streptococcus sp PCR Not Detected (Not Detect) Group A Strep DNA Not Detected (Not Detect) Group B Strep (PCR) Not Detected (Not Detect) Strep pneumoniae (PCR) Not Detected (Not Detect) P. aeruginosa (PCR) Not Detected (Not Detect) Jordyn/B-Vanco Res Genes N/A (Not Detect) KPC (blaKPC) Detect PCR N/A (Not Detect) - VTE Documentation of Mechanical Device: Graduated compression elastic hosiery Consult Discharge Plan - Plan Referrals: Dominic Martins Jr, MD [Primary Care Provider] - - Attending Attestation I examined this patient and my medical decision-making was reviewed with the Resident Physician. I agree with the documented findings, disposition and treatment plan as described except to the extent set forth below. This is an addendum to original report dictated by Digna ADEN. Please refer to Jayne note for full detail. Briefly patient is 59-year-old woman with extensive past medical history mentioned below who is known to my service for previous possible osteomyelitis of the right foot was admitted on October 03 and underwent spinal fusion. Patient states that her wound never fully healed and continued to have drainage. Patient also states that shell continue to have pain. Patient denied any fevers or chills or night sweats at home. Patient was nauseated though no vomiting. Patient denied any peripheral neuropathy or loss of balance. Patient was eventually reevaluated by spine surgery and they were concerned for infection so patient was admitted for evaluation. While here patient plus cultures were positive for coag-negative staph 2 out of 2 sets. Patient was taken to the OR where she had a deep abscess that penetrated the fascia as per Dr. Mccormick. All the hardware was removed and the patients was I&D done aggressively and Intra-Op cultures were sent. Patient was started on vancomycin we were asked to evaluate the patient and make further recommendations. Patient continues to have pain in her back, patient on further questioning tells me that she has a pacemaker placed in 2014. She doesnt know why her heart doesnt work very well but the assumed its due to her scleroderma that systemic. Patient is not currently on any autoimmune disease treatment. Physical examination really unremarkable for endocarditis stigmata. No conjunctival hemorrhage. Agree with current treatment with vancomycin with goal vancomycin trough of about 15. Patient will need a GERONIMO prior to discharge. We will treat this as a complicated coag-negative staph bacteremia and osteomyelitis. While on vancomycin patient is to be monitored closely for creatinine clearance, BUN, CBC , Vanco trough ESR and CRP. As long discussion with the patient and I believe the sister was at bedside and she understands the possible risk with IV antibiotics. But she also understands that the risk in her case up with the risk of getting an infection down to the spine. Long discussion with Dr. Mccormick who also was at bedside. Well continue to monitor closely. Patient needs to follow-up with us as an outpatient in clinic.
[2017-10-30] MEDS: *HR* HYDROcodone/Acet 10/325 mg TABLET PO PRN ×2 (14:14→18:48)
[2017-10-30] MEDS: Vancomycin 1,500 MG in D5% in Water 250 ML IVPB SCH (18:44)
[2017-10-31] MEDS: *HR* HYDROcodone/Acet 10/325 mg TABLET PO PRN ×3 (01:53→22:06)
[2017-10-31] MEDS: traMADol 50 MG TABLET PO PRN (03:26)
[2017-10-31] MEDS ORDERED: Bacitracin 50,000 UNIT, Polymyxin B Sulfate 500,000 UNIT, Sodium Chloride IRRigation 1,... IR ONE (06:00)
[2017-10-31] MEDS: Vancomycin 1,500 MG in D5% in Water 250 ML IVPB SCH ×2 (06:05→18:09)
[2017-10-31] MEDS ORDERED: Ondansetron 4 MG/2 ML VIAL ONE (07:11)
[2017-10-31] MEDS ORDERED: Lidocaine -MPF 4% 5 ML AMPUL ONE (07:11)
[2017-10-31] MEDS ORDERED: Dexamethasone 4 MG/ML VIAL ONE (07:11)
[2017-10-31] MEDS ORDERED: *HR* Succinylcholine 200 MG/10 ML VIAL IVP ONE (07:11)
[2017-10-31] MEDS ORDERED: Lidocaine -MPF 2% 2 ML VIAL ONE ×2 (07:11→10:12)
[2017-10-31] MEDS ORDERED: *HR* FentaNYL (PF) 100 MCG/2 ML VIAL ONE (07:21)
[2017-10-31] MEDS ORDERED: *HR* Propofol 200 MG/20 ML VIAL IVP ONE (07:21)
--- NOTE | 2017-10-31 07:34 | Spine Progress Note ---
Date of Encounter: 10/30/17 Time of Encounter: 13:05 - Assessment and Plan (1) Degenerative scoliosis in adult patient Current Visit: No Status: Chronic On examination she is lying in bed uncomfortable complaining of back pain. Afebrile vital signs stable. Neck is supple. There is no JVD. Lungs are clear to auscultation. Cardiovascular is regular rate and rhythm. Abdomen is obese but nontender. There is no rebound or guarding. She is neurovascularly intact with regard to her bilateral lower extremities. Her hips move symmetrically. There is no clonus. There is no clubbing cyanosis or edema. CT scan of the abdomen and pelvis dated 2017 reveals a degenerative scoliosis with instrumentation spanning L2-L5. There is some breech of the medial cortex of the pedicle and the left L5 screw of the right L3-L4 screws into the lateral recesses. There is no significant fluid collection detected other than postsurgical changes. Impression: 1) lumbar wound drainage status post posterior lumbar interbody fusion L2-L5 2) malposition/failed hardware lumbar spine Plan: is admitted for definitive management. This required surgery in the form of irrigation and debridement of the lumbar wound. Evaluate intraoperatively whether there is a seroma present any evidence of infection. In addition, we will check of the pedicle screws and removal/replacement any screws which are deemed to be in contact or displacing nerve roots which may cause irritation and radiculopathy. Risk benefits possible complications and alternatives were fully discussed with the patient and the patient would like to proceed. Subjective Principal diagnosis: Lumbar wound drainage Interval history: Maria Esther significant pain. She is postop day 1 irrigation and debridement with packing of her lumbar wound. Intraoperative cultures were obtained. Blood cultures reveal staph epidermis. She remains afebrile vital signs stable. She is neurovascularly intact with regard to her bilateral lower extremities. A long discussion was held with the sister and patient regarding her care plan. Alleviating the infectious process was reiterated as a significant goal. We will continue antibiotics and obtain an infectious disease consult. We are adjusting her pain medications for comfort. All questions were answered and patient and family are dissatisfied with the care plan. We will proceed with irrigation and debridement and closure lumbar wound tomorrow. Objective Vital signs: Vital Signs Temp Pulse Resp BP Pulse Ox 10/30/17 20:12 97 10/30/17 19:05 97.6 F 105 16 128/82 97 10/30/17 13:26 98.6 F 89 16 135/84 93 10/30/17 12:53 98.6 F 89 16 125/84 93 10/30/17 08:24 99.2 F 82 14 96 Intake and Output 10/30/17 10/30/17 10/31/17 15:59 23:59 07:59 Intake Total 1250 / 1250 Balance 1250 / 1250 Intake: IV Fluids 1250 / 1250 Lactated Ringers 1,000 ML @ 100 1000 / 1000 mls/hr IVC .Q10H KELLY Rx#: [id number] Vancocin 1,500 MG In Dextrose 5 250 / 250 % 250 ML @ 166.67 mls/hr IVPB Q12H KELLY Rx#:[id number] - Labs CBC & BMP: 10/30/17 07:00 10/30/17 07:00 Labs: Abnormal lab results WBC 14.4 K/mcL (4.3-11.1) H D 10/30/17 07:00 Hgb 8.9 g/dL (11.5-15.4) L 10/30/17 07:00 Hct 30.0 % (35.3-44.9) L 10/30/17 07:00 MCV 78.1 fL (83.0-100.0) L 10/30/17 07:00 MCH 23.2 pg (28.0-33.3) L 10/30/17 07:00 MCHC 29.7 g/dL (31.6-35.5) L 10/30/17 07:00 RDW 19.9 % (11.5-14.5) H 10/30/17 07:00 Neutrophils # 11.4 K/mcL (1.6-8.9) H 10/30/17 07:00 Nucleated RBCs/100 WBC 0.1 /100 WBC (0) H 10/30/17 07:00 PT 14.0 Seconds (9.4-12.1) H 10/25/17 19:17 Potassium 3.2 mEq/L (3.5-5.1) L 10/30/17 07:00 Creatinine 0.53 mg/dL (0.60-1.20) L 10/30/17 07:00 Glucose 136 mg/dL (70-105) H 10/30/17 07:00 POC Glucose 159 (58-89) H 10/27/17 19:23 Calcium 8.4 mg/dL (8.6-10.3) L 10/30/17 07:00 Direct Bilirubin 0.5 mg/dL (0.0-0.2) H 10/24/17 05:32 AST 43 Units/L (13-39) H 10/24/17 05:32 ALT 58 Units/L (7-52) H 10/24/17 05:32 Alkaline Phosphatase 331 Units/L (34-104) H 10/24/17 05:32 C-Reactive Protein 53 mg/L (Less than 10) H 10/30/17 07:00 Globulin 4.4 g/dL (2.4-3.5) H 10/24/17 05:32 Albumin/Globulin Ratio 0.8 (1.1-2.2) L 10/24/17 05:32 Lipase < 3 Units/L (11-82) L 10/24/17 05:32 Urine Clarity Cloudy (Clear) A 10/26/17 11:20 Urine Bilirubin Small (Negative) H 10/26/17 11:20 Urine Urobilinogen >=8.0 mg/dL (Normal) H 10/26/17 11:20 Urine Microscopic WBC 5-15 per hpf (0-3) H 10/26/17 11:20 Ur Squamous Epith Cells Many per lpf (None-Few) H 10/26/17 11:20 Vancomycin Trough 8.7 mcg/mL (10-20) L 10/30/17 16:59 Staphylococcus sp PCR DETECTED (Not Detect) A 10/26/17 18:21 mecA-Methicil Res Gene DETECTED (Not Detect) A 10/26/17 18:21 Consult Discharge Plan - Plan Referrals: Dominic Martins Jr, MD [Primary Care Provider] -
--- NOTE | 2017-10-31 07:43 | Anesthesia Evaluation PreOp ---
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 HX Other Medical History: GERD, Other (scleroderma) Anesthesia History: No Prior Anesthetic Complications, Past Anesthesia (ARMEN) Alcohol Use: none Drug use: none Medications and Allergies Albuterol Sulfate [Proventil Hfa] 2 puff IH Q4H PRN 09/27/15 [History] Aspirin Enteric Coated [Aspirin EC] 81 mg PO QAM 09/27/15 [History] Cetirizine HCl [Zyrtec] 10 mg PO QPM 09/27/15 [History] Clopidogrel [Plavix] 75 mg PO QAM 09/27/15 [History] Cyclobenzaprine [Flexeril] 5 mg PO TID PRN 09/27/15 [History] Diclofenac Sodium [Voltaren] 50 mg PO TID 09/27/15 [History] Esomeprazole Magnesium [Nexium] 40 mg PO BID 09/27/15 [History] Fluticasone Propionate Nasal [Flonase] 50 mcg NS DAILY PRN 09/27/15 [History] Furosemide [Lasix] 20 mg PO QAM 09/27/15 [History] LORazepam [Ativan] 1 mg PO TID PRN 09/27/15 [History] Lisinopril [Zestril] 2.5 mg PO QAM 09/27/15 [History] Montelukast [Singulair] 10 mg PO QAM 09/27/15 [History] SUMAtriptan succinate [Imitrex] 50 mg PO AD PRN 09/27/15 [History] Sertraline [Zoloft] 100 mg PO QPM 09/27/15 [History] Sildenafil Citrate [Revatio] 20 mg PO TID 09/27/15 [History] Sucralfate [Carafate] 1 gm PO TID 09/27/15 [History] Doxazosin [Cardura] 1 mg PO HS 10/03/17 [History] Nortriptyline HCl 50 mg PO HS 10/03/17 [History] HYDROcodone/Acet 10/325 mg [[place] 10-325 mg] 1 each PO Q4HR PRN #60 tablet 10/08 [Rx] 3 Allergy/AdvReac Type Severity Reaction Status Date / Time codeine Allergy See Verified 10/24/17 04:25 Comments nitrofurantoin Allergy Hives Verified 10/24/17 04:25 [From Macrobid] Penicillins Allergy Hives Verified 10/24/17 04:25 sulfamethoxazole Allergy Hypotension Verified 10/24/17 04:25 [From Septra] Tetracycline Allergy Hives Verified 10/24/17 04:25 trimethoprim [From Septra] Allergy Hypotension Verified 10/24/17 04:25 Sulfa (Sulfonamide AdvReac Hypotension Verified 10/24/17 04:25 Antibiotics) - Meds/Allergy Pre-op Review Medications Reviewed: Yes Allergies Reviewed: Yes Beta Blockers on Current Med List: No Anesthesia Results - Labs 10/30/17 07:00 10/30/17 07:00 - Imaging EKG: report reviewed (09/27/2017 ELECTRONIC VENTRICULAR PACEMAKER ABNORMAL RHYTHM ECG) Anesthesia Exam Vital Signs/O2 Sat/Glucose, Most Recent Temp Pulse Resp BP Pulse Ox 97.6 F 105 16 128/82 97 10/30/17 19:05 10/30/17 19:05 10/30/17 19:05 10/30/17 19:05 10/30/17 20:12 Blood Glucose* 159 Height: 5'2''/1.57 m Weight: 199 lbs/90.5 kg NPO (# of Hours): 8 Pain Scale: 0 Pain Scale Used: Numeric (1 - 10) - HEENT Pupil (Motor): EOMI Mallampati: III Teeth: Normal Oral Opening: Greater than 3 - TRIM MASTER OPERATOR LOC: Oriented TRIM MASTER OPERATOR Motor: Normal RUE, Normal LUE, Normal RLE, Normal LLE, Normal Face TRIM MASTER OPERATOR Sensory: Normal: RUE, LUE, RLE, LLE, Face - Cardiac Rhythm: Regular Murmur: None - Pulmonary Breath Sounds: bilateral Clear Respiratory Effort: Symmetrical Anesthesia Assess/Plan ASA Score: 3 Modified Radha Scale for Level of Consciousness: Cooperative, oriented, and tranquil Anesthetic Plan: General Monitoring Plan: Standard Monitors Recovery Plan: PACU
[2017-10-31] MEDS ORDERED: *HR* PHENYLEPHRINE 1,000 MCG/10 ML SYRINGE IVP ONE (08:28)
[2017-10-31] MEDS ORDERED: Vancomycin 1,000 MG VIAL ONE (08:29)
[2017-10-31] MEDS ORDERED: Ketamine *HR* 500 MG/10 ML MDV ONE (08:36)
[2017-10-31] MEDS ORDERED: MORPHINE SUL Oral CONC 10 MG/0.5 ML ORAL.SYG SL PRN (08:45)
[2017-10-31] MEDS ORDERED: *HR* HYDROcodone/Acet 7.5/325 mg TABLET PO PRN (08:45)
[2017-10-31] MEDS ORDERED: Ketorolac 30 MG/ML VIAL ONE (09:26)
--- NOTE | 2017-10-31 09:36 | Orthopedic Operative Note ---
Date of procedure: 10/31/17 Pre-op diagnosis: Infected Lumbar wound Post-op diagnosis: same Operation/Findings: Irrigation and debridement, closure lumbar wound: The patient was brought to the operative theater where she underwent general endotracheal anesthesia. She was given antibiotics prior to the start of the procedure. Compression boots and stockings were used for deep vein thrombosis prophylaxis. The patient was placed prone on a N[place]um table. The back was prepped and draped in the usual sterile fashion after removing the previously placed packing from the deep lumbar wound. After we opened up and inspected the wound bed including the thecal sac deep muscles and superficial layers. There was noted to be significant improvement in the appearance of the tissues which were the feet red and granulating. We copiously irrigated the deep and superficial lumbar wound is in some debridement of fascia and any muscle tissue which even appeared mildly compromised. Subsequently we did mechanical lavage with 3 L of vancomycin impregnated normal saline. We copiously irrigated the wound and then closed the wound in layers with 1 Vicryl for the fascia, and interrupted 0 Prolene and one Prolene sutures for the skin. Adaptic dressing covered with bacitracin ointment was placed over the interrupted sutures. Sterile dressings were placed over the wound, the patient was turned supine in a hospital bed, and was extubated in the operative theater. All sponge needles and instrument counts were correct at the end of the procedure. The patient tolerated the procedure well without complications. Anesthesia: AMANUEL Surgeon: Preston Mccormick Jr Was there an medical assistant cardiology present: No Estimated blood loss (cc): 50 Specimen: none Condition: stable Disposition: PACU
[2017-10-31] MEDS ORDERED: Heparin 1,000 UNITS/500 mL 500 ML ONE (10:07)
[2017-10-31] MEDS ORDERED: *HR* Midazolam HCl 2 MG/2 ML VIAL ONE (10:12)
--- NOTE | 2017-10-31 10:26 | Anesthesia Evaluation Post Op ---
Date of Encounter: 10/31/17 Time of Encounter: 10:24 - Vital Signs Vital Signs: Vital Signs/O2 Sat, Most Current Temp Pulse Resp BP Pulse Ox 98.4 F 96 12 140/85 95 10/31/17 09:48 10/31/17 10:08 10/31/17 10:08 10/31/17 10:08 10/31/17 10:08 - Lungs Lungs: Clear Ascult./Percussion - Airway Airway: Non-obstructed - Cardiovascular Regular Rate - Mental Status Mental Status: Asleep with brisk response to light stimulation - Nausea Vomiting Nausea Vomiting: Not Present - Hydration Hydration: NPO, Has not voided - Discharge PostOp Status: Transfer Patient to floor
[2017-10-31] MEDS ORDERED: *HR* HYDROcodone/Acet 10/325 mg TABLET PO PRN (10:46)
[2017-10-31] MEDS ORDERED: Sennosides 8.6 MG TABLET PO PRN (10:46)
[2017-10-31] MEDS ORDERED: Acetaminophen 325 MG TABLET PO PRN (10:46)
[2017-10-31] MEDS ORDERED: Ondansetron 4 MG/2 ML VIAL IVP PRN ×2 (10:46)
[2017-10-31] MEDS ORDERED: *HR* HYDROcodone/Acet 5/325 mg TABLET PO PRN (10:46)
[2017-10-31] MEDS ORDERED: *HR* Promethazine 25 MG/ML VIAL IVP PRN (10:46)
[2017-10-31] MEDS ORDERED: Naloxone 0.4 MG/ML INJ IVP PRN ×2 (10:46)
--- NOTE | 2017-10-31 13:42 | Infectious Disease Progress No ---
Date of Encounter: 10/31/17 Time of Encounter: 13:40 - Assessment and Plan (1) Sepsis Current Visit: Yes Status: Acute The patient had two SIRS criteria on admission. Likely secondary to bacteria and surgical wound infection. Improved. WBC had normalized, but went back up yesterday - likely related to surgery. Today's labs are pending. Tachycardia resolved. Blood cultures drawn 10/26/17 were positive 2/2 sets for S. epi. Repeat labs daily. Qualifiers: Sepsis type: sepsis due to unspecified organism Qualified Code(s): A41.9 - Sepsis, unspecified organism (2) Bacteremia Current Visit: Yes Status: Acute Causative organism S. epi. Likely secondary to surgical wound infection. Complicated due to pacemaker. Blood cultures drawn 10/26/17 are positive 2/2 sets for S. epi. No endocarditis stigmata noted on exam. The patient has two minor Modified Martinez' s Criteria. Repeat blood cultures x 2 sets drawn 10/30/17 are pending. Get a TTE to evaluate for endocarditis. Low index of suspicion for IE at this point. Continue Vancomycin IV. Pharmacy to dose. Goal trough ~15. Vanc trough low at 8.7. Dose adjusted by pharmacy. Duration of treatment depends on the clinical picture, but likely 6 weeks due to the surgical wound infection being very deep and concern for OM. Monitor renal function and dose-adjust antibiotics. Avoid inserting central venous access until repeat blood cultures are negative x 48 hours. (3) Surgical wound infection Current Visit: Yes Status: Acute Causative organism unclear, but likely S. epi given the blood culture results. Etiology unclear. Status post PLIF L2-L5 10/03/[address] Mccormick. Failed outpatient oral antibiotics (Keflex). CT of the T-spine and L-spine showed findings concerning for displacement of the hardware. No pre-op inflammatory markers were checked. Ortho consulted and following. Status post I & D of the lumbar wound with removal of the hardware and packing of the lumbar wound 10/29/[address] Mccormick. Operative note reviewed. Gross purulence deep into the subcutaneous fascia and muscle. Intra-op cultures pending, but gram stain shows abundant GPC. Await final ID and sensitivities. ESR >130. CRP 53. Continue Vancomycin IV. Pharmacy to dose. Goal trough ~15. Duration of treatment depends on the clinical picture, but likely 6 weeks due to the extent of the infection. Risks, benefits, and alternatives of long-term IV antibiotics discussed with the patient and her sister. All questions were answered and the patient is agreeable to proceed with long-term IV antibiotics. Monitor renal function and for drug toxicity and dose-adjust antibiotics. Avoid insertion of central venous access until repeat blood cultures are negative x 48 hours. Qualifiers: Encounter type: initial encounter Qualified Code(s): T81.4XXA - Infection following a procedure, initial encounter (4) Degenerative scoliosis in adult patient Current Visit: No Status: Chronic Status post PILF L2-L5 10/03/[address] Mccormick. Hardware removed due to infection. Further management per Dr. Mccormick. (5) Lumbar stenosis Current Visit: No Status: Chronic Status post PILF L2-L5 10/03/[address] Mccormick. Hardware removed due to infection. Further management per Dr. Mccormick. Qualifiers: Neurogenic claudication status: with neurogenic claudication Qualified Code (s): M48.062 - Spinal stenosis, lumbar region with neurogenic claudication (6) Lumbar radiculopathy Current Visit: No Status: Chronic Status post PILF L2-L5 10/03/[address] Mccormick. Hardware removed due to infection. Further management per Dr. Mccormick. (7) Back pain Current Visit: Yes Status: Acute Likely secondary to recent surgical procedure. Pain management per Dr. Mccormick's recommendations. Qualifiers: Back pain location: low back pain Chronicity: acute Back pain laterality : unspecified Sciatica presence: unspecified whether sciatica present Qualified Code(s): M54.5 - Low back pain (8) Status post lumbar spinal fusion Current Visit: Yes Status: Acute Status post PILF L2-L5 10/03/[address] Mccormick. Hardware removed due to infection. Further management per Dr. Mccormick. - Subjective Interval history: Patient seen and examined. No acute events noted overnight. Status post irrigation and debridement and closure of the lumbar wound by Dr. Mccormick. Patient drowsy, complains of pain to the surgical site, but otherwise offers no acute complaints. Per her sister, she has not had a bowel movement in 4 days. Infect Dis PN-Objective Data - Labs CBC & Chem 7: 10/30/17 07:00 10/30/17 07:00 Labs: Laboratory Results - last 24 hr 10/30/17 10/31/17 16:59 06:43 ESR >= 130 H Vancomycin Trough 8.7 L Exam - Constitutional Vitals: Temp Pulse Resp BP Pulse Ox 98.4 F 96 16 135/79 95 10/31/17 12:54 10/31/17 12:54 10/31/17 12:54 10/31/17 12:54 10/31/17 12:54 General appearance: cooperative, no acute distress, obese - Head Head exam: Present: atraumatic, normal inspection, normocephalic - Eye Eye exam: Present: EOMI, normal appearance, PERRL Pupils: Present: normal accommodation Additional comments: No subconjunctival hemorrhage noted. - ENT ENT exam: Present: mucous membranes dry - Neck Neck exam: Present: normal inspection - Respiratory Respiratory exam: Present: CTAB. Absent: rales, respiratory distress, rhonchi, wheezes - Cardiovascular Cardiovascular exam: Present: RRR, +S1, +S2 - GI/Abdominal GI/Abdominal exam: Present: normal bowel sounds, soft. Absent: distended, tenderness - Extremities Exam Extremities exam: Present: normal inspection. Absent: joint swelling, pedal edema, tenderness - Back Exam Additional comments: Post-op dressing C/D/I. - Neurological Exam Neurological exam: Present: altered (drowsy, difficult to keep awake), no focal deficits - Skin Skin exam: Present: dry, intact, normal color, warm Additional comments: No endocarditis stigmata noted. - VTE Documentation of Mechanical Device: Intermittent pneumatic compression device Consult Discharge Plan - Plan Referrals: Dominic Martins Jr, MD [Primary Care Provider] - - Attending Attestation I examined this patient and my medical decision-making was reviewed with the Resident Physician. I agree with the documented findings, disposition and treatment plan as described except to the extent set forth below.
[2017-10-31] MEDS: Ringers Solution, Lactated 1,000 ML IVC SCH (19:47)
[2017-10-31] MEDS: Temazepam 15 MG CAPSULE PO PRN (22:06)
[2017-10-31] MEDS: diazePAM 5 MG TABLET PO PRN (22:06)
[2017-11-01] MEDS: *HR* HYDROcodone/Acet 10/325 mg TABLET PO PRN ×4 (02:27→19:33)
[2017-11-01] MEDS: Ringers Solution, Lactated 1,000 ML IVC SCH (06:08)
[2017-11-01] MEDS: Vancomycin 1,500 MG in D5% in Water 250 ML IVPB SCH (06:08)
[2017-11-01] MEDS: diazePAM 5 MG TABLET PO PRN (09:46)
--- NOTE | 2017-11-01 13:44 | Infectious Disease Progress No ---
Date of Encounter: 11/01/17 Time of Encounter: 13:41 - Assessment and Plan (1) Sepsis Current Visit: Yes Status: Acute The patient had two SIRS criteria on admission. Likely secondary to bacteria and surgical wound infection. Improved. WBC had normalized, but went back up yesterday - likely related to surgery. Today's labs are pending. Tachycardia resolved. Blood cultures drawn 10/26/17 were positive 2/2 sets for S. epi. Repeat blood cultures drawn 10/30/17 are pending x 2 sets. Repeat labs daily. Qualifiers: Sepsis type: sepsis due to unspecified organism Qualified Code(s): A41.9 - Sepsis, unspecified organism (2) Bacteremia Current Visit: Yes Status: Acute Causative organism S. epi. Likely secondary to surgical wound infection. Complicated due to pacemaker. Blood cultures drawn 10/26/17 are positive 2/2 sets for S. epi. No endocarditis stigmata noted on exam. The patient has two minor Modified Martinez' s Criteria. Repeat blood cultures x 2 sets drawn 10/30/17 are pending. TTE negative for vegetations. Continue Vancomycin IV. Pharmacy to dose. Goal trough ~15. Vanc trough low at 8.7. Dose adjusted by pharmacy and repeat vanc trough ordered tonight. May need to consider starting rifampin on discharge. Duration of treatment depends on the clinical picture, but likely 6 weeks due to the surgical wound infection being very deep and concern for OM. Monitor renal function and dose-adjust antibiotics. Avoid inserting central venous access until repeat blood cultures are negative x 48 hours. (3) Surgical wound infection Current Visit: Yes Status: Acute Causative organism unclear, but likely S. epi given the blood culture results. Etiology unclear. Status post PLIF L2-L5 10/03/[address] Mccormick. Failed outpatient oral antibiotics (Keflex). CT of the T-spine and L-spine showed findings concerning for displacement of the hardware. No pre-op inflammatory markers were checked. Ortho consulted and following. Status post I & D of the lumbar wound with removal of the hardware and packing of the lumbar wound 10/29/[address] Mccormick. Operative note reviewed. Gross purulence deep into the subcutaneous fascia and muscle. Intra-op cultures pending, but gram stain shows abundant GPC. Await final ID and sensitivities. ESR >130. CRP 53. Continue Vancomycin IV. Pharmacy to dose. Goal trough ~15. Duration of treatment depends on the clinical picture, but likely 6 weeks due to the extent of the infection. Risks, benefits, and alternatives of long-term IV antibiotics discussed with the patient and her sister. All questions were answered and the patient is agreeable to proceed with long-term IV antibiotics. Monitor renal function and for drug toxicity and dose-adjust antibiotics. Avoid insertion of central venous access until repeat blood cultures are negative x 48 hours. Qualifiers: Encounter type: initial encounter Qualified Code(s): T81.4XXA - Infection following a procedure, initial encounter (4) Degenerative scoliosis in adult patient Current Visit: No Status: Chronic Status post PILF L2-L5 10/03/[address] Mccormick. Hardware removed due to infection. Further management per Dr. Mccormick. (5) Lumbar stenosis Current Visit: No Status: Chronic Status post PILF L2-L5 10/03/[address] Mccormick. Hardware removed due to infection. Further management per Dr. Mccormick. Qualifiers: Neurogenic claudication status: with neurogenic claudication Qualified Code (s): M48.062 - Spinal stenosis, lumbar region with neurogenic claudication (6) Lumbar radiculopathy Current Visit: No Status: Chronic Status post PILF L2-L5 10/03/[address] Mccormick. Hardware removed due to infection. Further management per Dr. Mccormick. (7) Back pain Current Visit: Yes Status: Acute Likely secondary to recent surgical procedure. Pain management per Dr. Mccormick's recommendations. Qualifiers: Back pain location: low back pain Chronicity: acute Back pain laterality : unspecified Sciatica presence: unspecified whether sciatica present Qualified Code(s): M54.5 - Low back pain (8) Status post lumbar spinal fusion Current Visit: Yes Status: Acute Status post PILF L2-L5 10/03/[address] Mccormick. Hardware removed due to infection. Further management per Dr. Mccormick. - Subjective Interval history: Patient seen and examined. No acute events noted overnight. Status post irrigation and debridement and closure of the lumbar wound by Dr. Mccormick . Patient drowsy, complains of pain to the surgical site, but otherwise offers no acute complaints. Denies fevers, chills, or rigors. Denies chest pain , shortness of breath, or cough. Denies nausea, vomiting, or diarrhea. States she has not had a BM in several days. Denies abdominal pain or urinary complaints. States she sat up in the chair this morning for breakfast. Denies oral thrush or new skin lesions. Infect Dis PN-Objective Data - Labs CBC & Chem 7: 11/01/17 14:02 11/01/17 14:02 Cultures: Cultures 10/30/17 16:19 Blood Culture - Preliminary Peripheral Venipuncture No growth. 10/30/17 16:24 Blood Culture - Preliminary Peripheral Venipuncture No growth. - Impressions Impressions Echocardiogram 10/31/17 19:00 Impressions: LVEF 45-50%. Low normal to mildly reduced LV systolic function. Indeterminate diastolic function. Mildly dilated left ventricle. Atypical septal motion. Normal right ventricular structure and function. Mild mitral regurgitation. Mild-moderate tricuspid regurgitation. Moderate-severe pulmonary hypertension. There is a trivial pericardial effusion present. There is no echocardiographic evidence of tamponade. Device lead visualized in the right atrium and right ventricle. No findings suggestive of infectious material. Left Ventricular Wall Motion: Rest Echo Findings The apical septal and mid inferior septal mckeon were dyskinetic. 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 The apical inferior, mid inferior, basal inferior and mid inferior lateral mckeon were not visualized. All other wall segments showed normal motion. Findings: Study Quality * Technically adequate exam. ECG Findings * Tachycardic. Probably paced ventricular rhythm. Left Ventricle * LVEF 45-50%. * Indeterminate diastolic function. * Mildly dilated left ventricle. * Atypical septal motion consistent with paced rhythm. Right Ventricle * Normal right ventricular structure and function. Left Atrium * Mildly dilated left atrium. Right Atrium * Normal right atrial size. Aortic Valve * No aortic regurgitation. * Aortic valve not well visualized. * No aortic stenosis. Mitral Valve * Mildly thickened mitral valve leaflets. * No mitral stenosis. * Mild mitral annular calcification * Mild mitral regurgitation. Tricuspid Valve * Normal tricuspid valve structure. * Mild-moderate tricuspid regurgitation. * Estimated RA pressure is 15 mmHg. * Estimated RVSP is 62 mmHg. * Moderate-severe pulmonary hypertension. Pulmonic Valve * Pulmonic valve is not well visualized. * No pulmonic stenosis. * No pulmonic regurgitation. Pulmonary Artery * Pulmonary artery not well visualized. Aorta * Normally sized aortic root. Pericardium * There is a trivial pericardial effusion present. * There is no echocardiographic evidence of tamponade. Device lead * A device lead was visualized in the right atrium and right ventricle. Interatrial Septum * Interatrial septum not well evaluated. IVC * The IVC is dilated. * < 50% respiratory change. Exam - Constitutional Vitals: Temp Pulse Resp BP Pulse Ox 98.5 F 76 18 138/79 96 11/01/17 06:44 11/01/17 09:42 11/01/17 09:42 11/01/17 09:42 11/01/17 09:42 General appearance: cooperative, no acute distress, obese - Head Head exam: Present: atraumatic, normal inspection, normocephalic - Eye Eye exam: Present: EOMI, normal appearance, PERRL Pupils: Present: normal accommodation Additional comments: No subconjunctival hemorrhage noted. - ENT ENT exam: Present: mucous membranes moist - Neck Neck exam: Present: normal inspection - Respiratory Respiratory exam: Present: CTAB. Absent: rales, respiratory distress, rhonchi, wheezes - Cardiovascular Cardiovascular exam: Present: RRR, +S1, +S2 - GI/Abdominal GI/Abdominal exam: Present: normal bowel sounds, soft. Absent: distended, tenderness - Extremities Exam Extremities exam: Present: normal inspection. Absent: joint swelling, pedal edema, tenderness - Back Exam Back exam: Present: tenderness (Surgical site) Additional comments: Dressing noted to the lower back that is C/D/I. No surrounding erythema noted. No fluctuance. Patient reports tenderness with palpation. - Neurological Exam Neurological exam: Present: alert, oriented X3, no focal deficits - Psychiatric Psychiatric exam: Present: normal affect, normal mood - Skin Skin exam: Present: dry, intact, normal color, warm - VTE Documentation of Mechanical Device: Intermittent pneumatic compression device Consult Discharge Plan - Plan Referrals: Dominic Martins Jr, MD [Primary Care Provider] - - Attending Attestation I examined this patient and my medical decision-making was reviewed with the Resident Physician. I agree with the documented findings, disposition and treatment plan as described except to the extent set forth below.
[2017-11-01 14:14] LABS: Basophils % 0.4 %; Eosinophils # 0.4 K/mcL (0.0-0.6); Eosinophils % 3.4 %; Hematocrit 30.9 % (35.3-44.9); Hemoglobin 9.1 g/dL (11.5-15.4); Immature Granulocytes % 0.6 % (0-4); Lymphocytes # 1.6 K/mcL (0.6-4.6); Lymphocytes % 14.9 %; Mean Corpuscular HGB Conc 29.4 g/dL (31.6-35.5); Mean Corpuscular Hemoglobin 23.2 pg (28.0-33.3); Mean Corpuscular Volume 78.8 fL (83.0-100.0); Mean Platelet Volume 9.8 fL (9.4-12.4); Monocytes # 0.9 K/mcL (0.0-1.3); Monocytes % 8.4 %; Neutrophils # 7.6 K/mcL (1.6-8.9); Platelet Count 422 K/mcL (140-400); Red Blood Count 3.92 M/mcL (3.82-4.97); Red Cell Distribution Width 20.2 % (11.5-14.5); Segmented Neutrophils % 72.3 %
[2017-11-01 14:27] LABS: Calcium 8.5 mg/dL (8.6-10.3); Carbon Dioxide 31 mEq/L (23-29); Chloride 100 mEq/L (98-107); Potassium 3.6 mEq/L (3.5-5.1); Sodium 138 mEq/L (136-145)
[2017-11-01 14:30] LABS: BUN/Creatinine Ratio 16 (6-26); Blood Urea Nitrogen 10 mg/dL (8-23); Glucose 153 mg/dL (70-105); Osmolality,Calculated 288 (280-300); eGFR For African Americans > 60 (> 60); eGFR For Non-African Americans > 60 (> 60)
[2017-11-01] MEDS: OXYCODONE Oral CONC 10 MG/0.5 ML ORAL.SYG SL PRN ×2 (17:07→23:05)
[2017-11-02] MEDS: diazePAM 5 MG TABLET PO PRN ×3 (01:28→20:43)
[2017-11-02] MEDS: *HR* HYDROcodone/Acet 10/325 mg TABLET PO PRN ×3 (05:58→19:42)
[2017-11-02] MEDS ORDERED: Vancomycin 1,250 MG in D5% in Water 250 ML IVPB SCH (06:00)
[2017-11-02 07:29] LABS: eGFR For African Americans > 60 (> 60); eGFR For Non-African Americans > 60 (> 60)
[2017-11-02 07:31] LABS: Blood Urea Nitrogen 9 mg/dL (8-23)
[2017-11-02 07:32] LABS: BUN/Creatinine Ratio 17 (6-26); Blood Urea Nitrogen 9 mg/dL (8-23); Calcium 8.4 mg/dL (8.6-10.3); Carbon Dioxide 27 mEq/L (23-29); Chloride 100 mEq/L (98-107); Glucose 137 mg/dL (70-105); Osmolality,Calculated 285 (280-300); Potassium 3.1 mEq/L (3.5-5.1); Sodium 137 mEq/L (136-145); eGFR For African Americans > 60 (> 60); eGFR For Non-African Americans > 60 (> 60)
[2017-11-02 07:47] LABS: Basophils # 0.1 K/mcL (0.0-0.2); Basophils % 0.5 %; Eosinophils # 0.4 K/mcL (0.0-0.6); Eosinophils % 3.1 %; Hemoglobin 9.3 g/dL (11.5-15.4); Immature Granulocytes % 0.4 % (0-4); Lymphocytes # 1.6 K/mcL (0.6-4.6); Lymphocytes % 13.2 %; Mean Corpuscular Hemoglobin 23.1 pg (28.0-33.3); Mean Corpuscular Volume 77.1 fL (83.0-100.0); Monocytes # 0.9 K/mcL (0.0-1.3); Monocytes % 7.7 %; Neutrophils # 9.2 K/mcL (1.6-8.9); Platelet Count 444 K/mcL (140-400); Red Blood Count 4.02 M/mcL (3.82-4.97); Red Cell Distribution Width 20.6 % (11.5-14.5); Segmented Neutrophils % 75.1 %
[2017-11-02] MEDS: OXYCODONE Oral CONC 10 MG/0.5 ML ORAL.SYG SL PRN ×2 (08:04→17:04)
--- NOTE | 2017-11-02 10:48 | Infectious Disease Progress No ---
Date of Encounter: 11/02/17 Time of Encounter: 10:46 - Assessment and Plan (1) Sepsis Current Visit: Yes Status: Acute The patient had two SIRS criteria on admission. Likely secondary to bacteria and surgical wound infection. Improved. WBC back up a little this morning. Tachycardia resolved. Blood cultures drawn 10/26/17 were positive 2/2 sets for S. epi. Repeat blood cultures drawn 10/30/17 are NGTD x 2 sets. Repeat labs daily. Qualifiers: Sepsis type: sepsis due to unspecified organism Qualified Code(s): A41.9 - Sepsis, unspecified organism (2) Bacteremia Current Visit: Yes Status: Acute Causative organism S. epi. Likely secondary to surgical wound infection. Complicated due to pacemaker. Blood cultures drawn 10/26/17 are positive 2/2 sets for S. epi. No endocarditis stigmata noted on exam. The patient has two minor Modified Martinez' s Criteria. Repeat blood cultures x 2 sets drawn 10/30/17 are NGTD. TTE negative for vegetations. Continue Vancomycin IV. Pharmacy to dose. Goal trough ~15. Vanc trough elevated at 24 yesterday. Dose-adjustments per pharmacy. May need to consider starting rifampin on discharge. Duration of treatment depends on the clinical picture, but likely 6 weeks due to the surgical wound infection being very deep and concern for OM. Monitor renal function and dose-adjust antibiotics. Okay to consult VAT for PICC line placement prior to discharge. (3) Surgical wound infection Current Visit: Yes Status: Acute Causative organism unclear, but likely S. epi given the blood culture results. Etiology unclear. Status post PLIF L2-L5 10/03/[address] Mccormick. Failed outpatient oral antibiotics (Keflex). CT of the T-spine and L-spine showed findings concerning for displacement of the hardware. No pre-op inflammatory markers were checked. Ortho consulted and following. Status post I & D of the lumbar wound with removal of the hardware and packing of the lumbar wound 10/29/[address] Mccormick. Operative note reviewed. Gross purulence deep into the subcutaneous fascia and muscle. Intra-op cultures grew S. epi. ESR >130. CRP 53. Continue Vancomycin IV. Pharmacy to dose. Goal trough ~15. Duration of treatment depends on the clinical picture, but likely 6 weeks due to the extent of the infection. Risks, benefits, and alternatives of long-term IV antibiotics discussed with the patient and her sister. All questions were answered and the patient is agreeable to proceed with long-term IV antibiotics. Monitor renal function and for drug toxicity and dose-adjust antibiotics. Okay to consult VAT for PICC line placement. Will need weekly CBC, BUN/Cr, ESR, CRP, and Vanc trough every Sunday. Will need weekly PICC care per protocol. Follow up with ID 11/15/17 at 1350. Qualifiers: Encounter type: initial encounter Qualified Code(s): T81.4XXA - Infection following a procedure, initial encounter (4) Degenerative scoliosis in adult patient Current Visit: No Status: Chronic Status post PILF L2-L5 10/03/[address] Mccormick. Hardware removed due to infection. Further management per Dr. Mccormick. (5) Lumbar stenosis Current Visit: No Status: Chronic Status post PILF L2-L5 10/03/[address] Mccormick. Hardware removed due to infection. Further management per Dr. Mccormick. Qualifiers: Neurogenic claudication status: with neurogenic claudication Qualified Code (s): M48.062 - Spinal stenosis, lumbar region with neurogenic claudication (6) Lumbar radiculopathy Current Visit: No Status: Chronic Status post PILF L2-L5 10/03/[address] Mccormick. Hardware removed due to infection. Further management per Dr. Mccormick. (7) Back pain Current Visit: Yes Status: Acute Likely secondary to recent surgical procedure. Pain management per Dr. Mccormick's recommendations. Qualifiers: Back pain location: low back pain Chronicity: acute Back pain laterality : unspecified Sciatica presence: unspecified whether sciatica present Qualified Code(s): M54.5 - Low back pain (8) Status post lumbar spinal fusion Current Visit: Yes Status: Acute Status post PILF L2-L5 10/03/[address] Mccormick. Hardware removed due to infection. Further management per Dr. Mccormick. - Subjective Interval history: Patient seen and examined. No acute events noted overnight. Status post irrigation and debridement and closure of the lumbar wound by Dr. Mccormick . States was having a significant amount of pain overnight, but per nursing he did not receive a scheduled dose of pain medication last night. Patient states pain is better controlled after pain medicine this morning. Denies fevers , chills, or rigors. Denies chest pain, shortness of breath, or cough. Denies nausea, vomiting, or diarrhea. States she has not had a BM in several days. Denies abdominal pain or urinary complaints. Denies oral thrush or new skin lesions. Infect Dis PN-Objective Data - Labs CBC & Chem 7: 11/02/17 06:53 11/02/17 06:53 Labs: Laboratory Results - last 24 hr 11/01/17 11/01/17 11/01/17 14:02 14:02 16:42 WBC 10.4 RBC 3.92 Hgb 9.1 L Hct 30.9 L MCV 78.8 L MCH 23.2 L MCHC 29.4 L RDW 20.2 H Plt Count 422 H MPV 9.8 Immature Gran % 0.6 Seg Neutrophils % 72.3 Lymphocytes % 14.9 Monocytes % 8.4 Eosinophils % 3.4 Basophils % 0.4 Neutrophils # 7.6 Lymphocytes # 1.6 Monocytes # 0.9 Eosinophils # 0.4 Basophils # 0.0 Sodium 138 Potassium 3.6 Chloride 100 Carbon Dioxide 31 H BUN 10 Creatinine 0.63 Est GFR ( Amer) > 60 Est GFR (Non-Af Amer) > 60 BUN/Creatinine Ratio 16 Glucose 153 H Calculated Osmolality 288 Calcium 8.5 L Vancomycin Trough 24.0 H* 11/02/1718 11/02/17 06:53 06:53 06:53 WBC 12.2 H RBC 4.02 Hgb 9.3 L Hct 31.0 L MCV 77.1 L MCH 23.1 L MCHC 30.0 L RDW 20.6 H Plt Count 444 H MPV 10.0 Immature Gran % 0.4 Seg Neutrophils % 75.1 Lymphocytes % 13.2 Monocytes % 7.7 Eosinophils % 3.1 Basophils % 0.5 Neutrophils # 9.2 H Lymphocytes # 1.6 Monocytes # 0.9 Eosinophils # 0.4 Basophils # 0.1 Sodium Potassium Chloride Carbon Dioxide BUN 9 Creatinine 0.54 L Est GFR ( Amer) > 60 Est GFR (Non-Af Amer) > 60 BUN/Creatinine Ratio Glucose Calculated Osmolality Calcium Vancomycin Trough 11/02/17 06:53 WBC RBC Hgb Hct MCV MCH MCHC RDW Plt Count MPV Immature Gran % Seg Neutrophils % Lymphocytes % Monocytes % Eosinophils % Basophils % Neutrophils # Lymphocytes # Monocytes # Eosinophils # Basophils # Sodium 137 Potassium 3.1 L Chloride 100 Carbon Dioxide 27 BUN 9 Creatinine 0.52 L Est GFR ( Amer) > 60 Est GFR (Non-Af Amer) > 60 BUN/Creatinine Ratio 17 Glucose 137 H Calculated Osmolality 285 Calcium 8.4 L Vancomycin Trough Cultures: Cultures 10/30/17 16:19 Blood Culture - Preliminary Peripheral Venipuncture No growth. 10/30/17 16:24 Blood Culture - Preliminary Peripheral Venipuncture No growth. - Impressions Impressions Echocardiogram 10/31/17 19:00 Impressions: LVEF 45-50%. Low normal to mildly reduced LV systolic function. Indeterminate diastolic function. Mildly dilated left ventricle. Atypical septal motion. Normal right ventricular structure and function. Mild mitral regurgitation. Mild-moderate tricuspid regurgitation. Moderate-severe pulmonary hypertension. There is a trivial pericardial effusion present. There is no echocardiographic evidence of tamponade. Device lead visualized in the right atrium and right ventricle. No findings suggestive of infectious material. Left Ventricular Wall Motion: Rest Echo Findings The apical septal and mid inferior septal mckeon were dyskinetic. 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 The apical inferior, mid inferior, basal inferior and mid inferior lateral mckeon were not visualized. All other wall segments showed normal motion. Findings: Study Quality * Technically adequate exam. ECG Findings * Tachycardic. Probably paced ventricular rhythm. Left Ventricle * LVEF 45-50%. * Indeterminate diastolic function. * Mildly dilated left ventricle. * Atypical septal motion consistent with paced rhythm. Right Ventricle * Normal right ventricular structure and function. Left Atrium * Mildly dilated left atrium. Right Atrium * Normal right atrial size. Aortic Valve * No aortic regurgitation. * Aortic valve not well visualized. * No aortic stenosis. Mitral Valve * Mildly thickened mitral valve leaflets. * No mitral stenosis. * Mild mitral annular calcification * Mild mitral regurgitation. Tricuspid Valve * Normal tricuspid valve structure. * Mild-moderate tricuspid regurgitation. * Estimated RA pressure is 15 mmHg. * Estimated RVSP is 62 mmHg. * Moderate-severe pulmonary hypertension. Pulmonic Valve * Pulmonic valve is not well visualized. * No pulmonic stenosis. * No pulmonic regurgitation. Pulmonary Artery * Pulmonary artery not well visualized. Aorta * Normally sized aortic root. Pericardium * There is a trivial pericardial effusion present. * There is no echocardiographic evidence of tamponade. Device lead * A device lead was visualized in the right atrium and right ventricle. Interatrial Septum * Interatrial septum not well evaluated. IVC * The IVC is dilated. * < 50% respiratory change. Exam - Constitutional Vitals: Temp Pulse Resp BP Pulse Ox 98.2 F 100 16 147/88 94 11/02/17 07:48 11/02/17 07:48 11/02/17 07:48 11/02/17 07:48 11/02/17 07:48 General appearance: average body habitus, cooperative, no acute distress - Head Head exam: Present: atraumatic, normal inspection, normocephalic - Eye Eye exam: Present: EOMI, normal appearance, PERRL Pupils: Present: normal accommodation - ENT ENT exam: Present: mucous membranes moist - Neck Neck exam: Present: normal inspection - Respiratory Respiratory exam: Present: CTAB. Absent: rales, respiratory distress, rhonchi, wheezes - Cardiovascular Cardiovascular exam: Present: RRR, +S1, +S2 - GI/Abdominal GI/Abdominal exam: Present: normal bowel sounds, soft. Absent: distended, tenderness - Extremities Exam Extremities exam: Present: normal inspection. Absent: joint swelling, pedal edema, tenderness - Back Exam Additional comments: Post-op dressing with small amount of shadow drainage noted. No surrounding warmth or erythema noted. - Neurological Exam Neurological exam: Present: alert, oriented X3, no focal deficits - Psychiatric Psychiatric exam: Present: normal affect, normal mood - Skin Skin exam: Present: dry, intact, normal color, warm - VTE Documentation of Mechanical Device: Intermittent pneumatic compression device Consult Discharge Plan - Plan Referrals: Dominic Martins Jr, MD [Primary Care Provider] - - Attending Attestation I examined this patient and my medical decision-making was reviewed with the Resident Physician. I agree with the documented findings, disposition and treatment plan as described except to the extent set forth below.
--- NOTE | 2017-11-02 13:17 | Spine Progress Note ---
Date of Encounter: 11/02/17 Time of Encounter: 13:15 - Assessment and Plan (1) Degenerative scoliosis in adult patient Current Visit: No Status: Chronic On examination she is lying in bed uncomfortable complaining of back pain. Afebrile vital signs stable. Neck is supple. There is no JVD. Lungs are clear to auscultation. Cardiovascular is regular rate and rhythm. Abdomen is obese but nontender. There is no rebound or guarding. She is neurovascularly intact with regard to her bilateral lower extremities. Her hips move symmetrically. There is no clonus. There is no clubbing cyanosis or edema. CT scan of the abdomen and pelvis dated 2017 reveals a degenerative scoliosis with instrumentation spanning L2-L5. There is some breech of the medial cortex of the pedicle and the left L5 screw of the right L3-L4 screws into the lateral recesses. There is no significant fluid collection detected other than postsurgical changes. Impression: 1) lumbar wound drainage status post posterior lumbar interbody fusion L2-L5 2) malposition/failed hardware lumbar spine Plan: is admitted for definitive management. This required surgery in the form of irrigation and debridement of the lumbar wound. Evaluate intraoperatively whether there is a seroma present any evidence of infection. In addition, we will check of the pedicle screws and removal/replacement any screws which are deemed to be in contact or displacing nerve roots which may cause irritation and radiculopathy. Risk benefits possible complications and alternatives were fully discussed with the patient and the patient would like to proceed. Subjective Principal diagnosis: Lumbar wound drainage Interval history: Maria Esther having some pain. She is postop day 2 irrigation and debridement and closure of her lumbar wound. She remains afebrile vital signs stable. She is neurovascularly intact with regard to her bilateral lower extremities. Incision is well approximated with minimal drainage. Blood cultures are no growth to date. Plan is to continue IV antibiotics. Place PICC line when bacteremia completely resolved. Will likely go home to rehabilitation with 4-6 weeks of IV antibiotic treatment per the infectious disease service. We will continue analgesics, sleep aids, muscle relaxants. Objective Vital signs: Vital Signs Temp Pulse Resp BP Pulse Ox 11/02/17 12:48 97.9 F 98 15 137/82 95 11/02/17 07:48 98.2 F 100 16 147/88 94 11/01/17 23:30 98.4 F 95 17 152/99 97 11/01/17 18:16 98.3 F 101 18 161/94 92 11/01/17 14:11 98.1 F 83 16 129/76 95 Intake and Output 11/01/17 11/02/17 11/02/17 23:59 07:59 15:59 Intake Total 700 / 700 Output Total 400 / 400 Balance 700 / 700 -400 / -400 Intake: Oral 700 / 700 Output: Urine 400 / 400 Other: # Voids 1 - Labs CBC & BMP: 11/02/17 06:53 11/02/17 06:53 Labs: Abnormal lab results WBC 12.2 K/mcL (4.3-11.1) H 11/02/17 06:53 Hgb 9.3 g/dL (11.5-15.4) L 11/02/17 06:53 Hct 31.0 % (35.3-44.9) L 11/02/17 06:53 MCV 77.1 fL (83.0-100.0) L 11/02/17 06:53 MCH 23.1 pg (28.0-33.3) L 11/02/17 06:53 MCHC 30.0 g/dL (31.6-35.5) L 11/02/17 06:53 RDW 20.6 % (11.5-14.5) H 11/02/17 06:53 Plt Count 444 K/mcL (140-400) H 11/02/17 06:53 Neutrophils # 9.2 K/mcL (1.6-8.9) H 11/02/17 06:53 Nucleated RBCs/100 WBC 0.1 /100 WBC (0) H 10/30/17 07:00 ESR >= 130 mm/hr (0-15) H 10/31/17 06:43 PT 14.0 Seconds (9.4-12.1) H 10/25/17 19:17 Potassium 3.1 mEq/L (3.5-5.1) L 11/02/17 06:53 Creatinine 0.52 mg/dL (0.60-1.20) L 11/02/17 06:53 Glucose 137 mg/dL (70-105) H 11/02/17 06:53 POC Glucose 159 (58-89) H 10/27/17 19:23 Calcium 8.4 mg/dL (8.6-10.3) L 11/02/17 06:53 Direct Bilirubin 0.5 mg/dL (0.0-0.2) H 10/24/17 05:32 AST 43 Units/L (13-39) H 10/24/17 05:32 ALT 58 Units/L (7-52) H 10/24/17 05:32 Alkaline Phosphatase 331 Units/L (34-104) H 10/24/17 05:32 C-Reactive Protein 53 mg/L (Less than 10) H 10/30/17 07:00 Globulin 4.4 g/dL (2.4-3.5) H 10/24/17 05:32 Albumin/Globulin Ratio 0.8 (1.1-2.2) L 10/24/17 05:32 Lipase < 3 Units/L (11-82) L 10/24/17 05:32 Urine Clarity Cloudy (Clear) A 10/26/17 11:20 Urine Bilirubin Small (Negative) H 10/26/17 11:20 Urine Urobilinogen >=8.0 mg/dL (Normal) H 10/26/17 11:20 Urine Microscopic WBC 5-15 per hpf (0-3) H 10/26/17 11:20 Ur Squamous Epith Cells Many per lpf (None-Few) H 10/26/17 11:20 Vancomycin Trough 24.0 mcg/mL (10-20) H* 11/01/17 16:42 Staphylococcus sp PCR DETECTED (Not Detect) A 10/26/17 18:21 mecA-Methicil Res Gene DETECTED (Not Detect) A 10/26/17 18:21 Consult Discharge Plan - Plan Referrals: Dominic Martins Jr, MD [Primary Care Provider] -
[2017-11-02] MEDS ORDERED: Lidocaine -MPF 1% 2 ML VIAL INFILT ONE (14:21)
[2017-11-02] MEDS: Vancomycin 1,000 MG in D5% in Water 250 ML IVPB SCH (19:41)
[2017-11-03] MEDS: *HR* HYDROcodone/Acet 10/325 mg TABLET PO PRN ×5 (00:19→19:47)
[2017-11-03] MEDS: diazePAM 5 MG TABLET PO PRN (04:45)
[2017-11-03 05:02] LABS: Basophils % 0.3 %; Eosinophils # 0.6 K/mcL (0.0-0.6); Hematocrit 34.3 % (35.3-44.9); Hemoglobin 10.2 g/dL (11.5-15.4); Immature Granulocytes % 0.7 % (0-4); Lymphocytes % 14.6 %; Mean Corpuscular HGB Conc 29.7 g/dL (31.6-35.5); Mean Corpuscular Volume 77.4 fL (83.0-100.0); Monocytes % 7.5 %; Neutrophils # 10.1 K/mcL (1.6-8.9); Nucleated Red Blood Cells 0.1 /100 WBC (0); Platelet Count 470 K/mcL (140-400); Red Blood Count 4.43 M/mcL (3.82-4.97); Red Cell Distribution Width 20.5 % (11.5-14.5); Segmented Neutrophils % 72.9 %
[2017-11-03] MEDS ORDERED: Ketorolac 30 MG/ML VIAL IVP ONE (05:11)
[2017-11-03] MEDS: Temazepam 15 MG CAPSULE PO PRN (05:22)
[2017-11-03 05:30] LABS: BUN/Creatinine Ratio 16 (6-26); Blood Urea Nitrogen 8 mg/dL (8-23); Calcium 8.7 mg/dL (8.6-10.3); Carbon Dioxide 29 mEq/L (23-29); Chloride 99 mEq/L (98-107); Glucose 125 mg/dL (70-105); Osmolality,Calculated 286 (280-300); Potassium 2.9 mEq/L (3.5-5.1); Sodium 138 mEq/L (136-145); eGFR For African Americans > 60 (> 60); eGFR For Non-African Americans > 60 (> 60)
[2017-11-03] MEDS: Vancomycin 1,000 MG in D5% in Water 250 ML IVPB SCH ×2 (06:45→17:23)
--- NOTE | 2017-11-03 11:00 | Orthopedics Progress Note ---
Date of Encounter: 11/03/17 Time of Encounter: 09:35 Subjective Principal diagnosis: Lumbar wound drainage Interval history: Patient laying in bed comfortably with decreased pain. Back dressings were recently changed and a clean dry and intact Patient's grossly neurovascularly intact distally in lower extremities Bilateral calves are soft and nontender POD # 3 s/p I&D of wounf with s. epi, and +ve bacteremia Continue IV antibiotic treatment as per ID Objective Vital signs: Vital Signs Temp Pulse Resp BP Pulse Ox 11/03/17 07:28 98.2 F 97 18 147/90 90 11/03/17 04:37 97.4 F L 99 20 142/85 95 11/02/17 23:57 98.2 F 100 17 147/91 96 11/02/17 20:41 98.3 F 98 19 149/88 94 11/02/17 16:48 97.9 F 83 16 164/88 97 11/02/17 12:48 97.9 F 98 15 137/82 95 Intake and Output 11/02/17 11/03/17 11/03/17 23:59 07:59 15:59 Intake Total 1230 / 1230 Output Total 600 / 600 Balance 1230 / 1230 -600 / -600 Intake: IV Fluids 250 / 250 Vancocin 1,000 MG In Dextrose 5 250 / 250 % 250 ML @ 167 mls/hr IVPB Q12H [facility] Rx#:[id number] Oral 980 / 980 Output: Urine 600 / 600 Other: # Voids 2 - Labs CBC & BMP: 11/03/17 04:50 11/03/17 04:50 Labs: Abnormal lab results WBC 13.9 K/mcL (4.3-11.1) H 11/03/17 04:50 Hgb 10.2 g/dL (11.5-15.4) L 11/03/17 04:50 Hct 34.3 % (35.3-44.9) L 11/03/17 04:50 MCV 77.4 fL (83.0-100.0) L 11/03/17 04:50 MCH 23.0 pg (28.0-33.3) L 11/03/17 04:50 MCHC 29.7 g/dL (31.6-35.5) L 11/03/17 04:50 RDW 20.5 % (11.5-14.5) H 11/03/17 04:50 Plt Count 470 K/mcL (140-400) H 11/03/17 04:50 Neutrophils # 10.1 K/mcL (1.6-8.9) H 11/03/17 04:50 Nucleated RBCs/100 WBC 0.1 /100 WBC (0) H 11/03/17 04:50 ESR >= 130 mm/hr (0-15) H 10/31/17 06:43 PT 14.0 Seconds (9.4-12.1) H 10/25/17 19:17 Potassium 2.9 mEq/L (3.5-5.1) L 11/03/17 04:50 Creatinine 0.50 mg/dL (0.60-1.20) L 11/03/17 04:50 Glucose 125 mg/dL (70-105) H 11/03/17 04:50 POC Glucose 159 (58-89) H 10/27/17 19:23 Direct Bilirubin 0.5 mg/dL (0.0-0.2) H 10/24/17 05:32 AST 43 Units/L (13-39) H 10/24/17 05:32 ALT 58 Units/L (7-52) H 10/24/17 05:32 Alkaline Phosphatase 331 Units/L (34-104) H 10/24/17 05:32 C-Reactive Protein 53 mg/L (Less than 10) H 10/30/17 07:00 Globulin 4.4 g/dL (2.4-3.5) H 10/24/17 05:32 Albumin/Globulin Ratio 0.8 (1.1-2.2) L 10/24/17 05:32 Lipase < 3 Units/L (11-82) L 10/24/17 05:32 Urine Clarity Cloudy (Clear) A 10/26/17 11:20 Urine Bilirubin Small (Negative) H 10/26/17 11:20 Urine Urobilinogen >=8.0 mg/dL (Normal) H 10/26/17 11:20 Urine Microscopic WBC 5-15 per hpf (0-3) H 10/26/17 11:20 Ur Squamous Epith Cells Many per lpf (None-Few) H 10/26/17 11:20 Vancomycin Trough 24.0 mcg/mL (10-20) H* 11/01/17 16:42 Staphylococcus sp PCR DETECTED (Not Detect) A 10/26/17 18:21 mecA-Methicil Res Gene DETECTED (Not Detect) A 10/26/17 18:21 - VTE Documentation of Mechanical Device: Intermittent pneumatic compression device Consult Discharge Plan - Plan Referrals: Dominic Martins Jr, MD [Primary Care Provider] -
[2017-11-03] MEDS: OXYCODONE Oral CONC 10 MG/0.5 ML ORAL.SYG SL PRN (17:22)
[2017-11-04] MEDS: *HR* HYDROcodone/Acet 10/325 mg TABLET PO PRN ×6 (00:15→23:56)
[2017-11-04 05:21] LABS: Basophils % 0.3 %; Eosinophils # 1.2 K/mcL (0.0-0.6); Eosinophils % 8.7 %; Hematocrit 35.6 % (35.3-44.9); Hemoglobin 10.4 g/dL (11.5-15.4); Immature Granulocytes % 0.4 % (0-4); Mean Corpuscular HGB Conc 29.2 g/dL (31.6-35.5); Mean Corpuscular Hemoglobin 22.7 pg (28.0-33.3); Mean Corpuscular Volume 77.7 fL (83.0-100.0); Monocytes # 1.1 K/mcL (0.0-1.3); Neutrophils # 9.1 K/mcL (1.6-8.9); Platelet Count 470 K/mcL (140-400); Red Blood Count 4.58 M/mcL (3.82-4.97); Red Cell Distribution Width 20.8 % (11.5-14.5); Segmented Neutrophils % 67.6 %
[2017-11-04 05:42] LABS: BUN/Creatinine Ratio 18 (6-26); Blood Urea Nitrogen 9 mg/dL (8-23); Calcium 8.6 mg/dL (8.6-10.3); Carbon Dioxide 29 mEq/L (23-29); Chloride 103 mEq/L (98-107); Glucose 114 mg/dL (70-105); Osmolality,Calculated 290 (280-300); Potassium 3.5 mEq/L (3.5-5.1); Sodium 140 mEq/L (136-145); eGFR For African Americans > 60 (> 60); eGFR For Non-African Americans > 60 (> 60)
[2017-11-04] MEDS: Vancomycin 1,000 MG in D5% in Water 250 ML IVPB SCH ×2 (05:54→17:14)
[2017-11-04] MEDS: OXYCODONE Oral CONC 10 MG/0.5 ML ORAL.SYG SL PRN ×2 (08:25→17:10)
[2017-11-04] MEDS ORDERED: MOM Conc 10 ML UD.LIQ PO ONE (12:04)
--- NOTE | 2017-11-04 12:34 | Orthopedics Progress Note ---
Date of Encounter: 11/04/17 Time of Encounter: 12:33 Subjective Principal diagnosis: Lumbar wound drainage Interval history: Patient laying in bed comfortably with decreased pain. She is complaining of some lower abdominal discomfort, she was passing gas has not had a BM for several days Back dressings were recently changed and a clean dry and intact Patient's grossly neurovascularly intact distally in lower extremities Bilateral calves are soft and nontender POD # 4 s/p I&D of wounf with s. epi, and +ve bacteremia Continue IV antibiotic treatment as per ID We will try the patient on milk of magnesia Objective Vital signs: Vital Signs Temp Pulse Resp BP Pulse Ox 11/04/17 12:11 98.5 F 106 16 135/83 95 11/04/17 06:42 98.6 F 105 16 135/74 92 11/04/17 04:01 98.3 F 103 16 137/85 94 11/04/17 00:58 98.2 F 102 18 137/88 96 11/03/17 18:58 97.8 F 103 17 148/85 94 11/03/17 16:52 97.6 F 105 14 139/85 94 Intake and Output 11/03/17 11/04/17 11/04/17 23:59 07:59 15:59 Intake Total 1140 / 1140 150 / 150 Output Total 350 / 350 250 / 250 Balance 790 / 790 -100 / -100 Intake: IV Fluids 250 / 250 Vancocin 1,000 MG In Dextrose 5 250 / 250 % 250 ML @ 167 mls/hr IVPB Q12H [facility] Rx#:[id number] Oral 890 / 890 150 / 150 Output: Urine 350 / 350 250 / 250 Other: Meal Dinner Breakfast Percent of Meal Consumed 50% 40% # Voids 1 - Labs CBC & BMP: 11/04/17 05:00 11/04/17 05:00 Labs: Abnormal lab results WBC 13.5 K/mcL (4.3-11.1) H 11/04/17 05:00 Hgb 10.4 g/dL (11.5-15.4) L 11/04/17 05:00 MCV 77.7 fL (83.0-100.0) L 11/04/17 05:00 MCH 22.7 pg (28.0-33.3) L 11/04/17 05:00 MCHC 29.2 g/dL (31.6-35.5) L 11/04/17 05:00 RDW 20.8 % (11.5-14.5) H 11/04/17 05:00 Plt Count 470 K/mcL (140-400) H 11/04/17 05:00 Neutrophils # 9.1 K/mcL (1.6-8.9) H 11/04/17 05:00 Eosinophils # 1.2 K/mcL (0.0-0.6) H 11/04/17 05:00 Nucleated RBCs/100 WBC 0.1 /100 WBC (0) H 11/03/17 04:50 ESR >= 130 mm/hr (0-15) H 10/31/17 06:43 PT 14.0 Seconds (9.4-12.1) H 10/25/17 19:17 Creatinine 0.49 mg/dL (0.60-1.20) L 11/04/17 05:00 Glucose 114 mg/dL (70-105) H 11/04/17 05:00 POC Glucose 159 (58-89) H 10/27/17 19:23 Direct Bilirubin 0.5 mg/dL (0.0-0.2) H 10/24/17 05:32 AST 43 Units/L (13-39) H 10/24/17 05:32 ALT 58 Units/L (7-52) H 10/24/17 05:32 Alkaline Phosphatase 331 Units/L (34-104) H 10/24/17 05:32 C-Reactive Protein 53 mg/L (Less than 10) H 10/30/17 07:00 Globulin 4.4 g/dL (2.4-3.5) H 10/24/17 05:32 Albumin/Globulin Ratio 0.8 (1.1-2.2) L 10/24/17 05:32 Lipase < 3 Units/L (11-82) L 10/24/17 05:32 Urine Clarity Cloudy (Clear) A 10/26/17 11:20 Urine Bilirubin Small (Negative) H 10/26/17 11:20 Urine Urobilinogen >=8.0 mg/dL (Normal) H 10/26/17 11:20 Urine Microscopic WBC 5-15 per hpf (0-3) H 10/26/17 11:20 Ur Squamous Epith Cells Many per lpf (None-Few) H 10/26/17 11:20 Staphylococcus sp PCR DETECTED (Not Detect) A 10/26/17 18:21 mecA-Methicil Res Gene DETECTED (Not Detect) A 10/26/17 18:21 - VTE Documentation of Mechanical Device: Intermittent pneumatic compression device Consult Discharge Plan - Plan Referrals: Dominic Martins Jr, MD [Primary Care Provider] -
[2017-11-04] MEDS: diazePAM 5 MG TABLET PO PRN (18:35)
[2017-11-05 04:20] LABS: Basophils # 0.1 K/mcL (0.0-0.2); Basophils % 0.5 %; Eosinophils # 0.8 K/mcL (0.0-0.6); Eosinophils % 6.1 %; Hemoglobin 10.6 g/dL (11.5-15.4); Immature Granulocytes % 0.3 % (0-4); Lymphocytes % 15.6 %; Mean Corpuscular HGB Conc 30.3 g/dL (31.6-35.5); Mean Corpuscular Hemoglobin 23.2 pg (28.0-33.3); Mean Corpuscular Volume 76.6 fL (83.0-100.0); Monocytes # 0.9 K/mcL (0.0-1.3); Monocytes % 7.1 %; Neutrophils # 9.2 K/mcL (1.6-8.9); Platelet Count 456 K/mcL (140-400); Red Blood Count 4.57 M/mcL (3.82-4.97); Red Cell Distribution Width 20.9 % (11.5-14.5); Segmented Neutrophils % 70.4 %
[2017-11-05 04:58] LABS: BUN/Creatinine Ratio 14 (6-26); Blood Urea Nitrogen 7 mg/dL (8-23); Calcium 8.9 mg/dL (8.6-10.3); Carbon Dioxide 28 mEq/L (23-29); Chloride 104 mEq/L (98-107); Glucose 120 mg/dL (70-105); Osmolality,Calculated 285 (280-300); Potassium 4.2 mEq/L (3.5-5.1); Sodium 138 mEq/L (136-145); eGFR For African Americans > 60 (> 60); eGFR For Non-African Americans > 60 (> 60)
[2017-11-05] MEDS: Vancomycin 1,000 MG in D5% in Water 250 ML IVPB SCH (05:35)
[2017-11-05] MEDS: *HR* HYDROcodone/Acet 10/325 mg TABLET PO PRN ×3 (05:36→15:14)
[2017-11-05] MEDS: diazePAM 5 MG TABLET PO PRN (11:45)
--- NOTE | 2017-11-05 11:53 | Infectious Disease Progress No ---
Date of Encounter: 11/05/17 Time of Encounter: 11:51 - Assessment and Plan (1) Sepsis Current Visit: Yes Status: Acute The patient had two SIRS criteria on admission. Likely secondary to bacteria and surgical wound infection. Improved. WBC still elevated. Patient having tachycardia. Blood cultures drawn 10/26/17 were positive 2/2 sets for S. epi. Repeat blood cultures drawn 10/30/17 are negative x 2 sets. Qualifiers: Sepsis type: sepsis due to unspecified organism Qualified Code(s): A41.9 - Sepsis, unspecified organism (2) Bacteremia Current Visit: Yes Status: Acute Causative organism S. epi. Likely secondary to surgical wound infection. Complicated due to pacemaker. Blood cultures drawn 10/26/17 are positive 2/2 sets for S. epi. No endocarditis stigmata noted on exam. The patient has two minor Modified Martinez' s Criteria. Repeat blood cultures x 2 sets drawn 10/30/17 are negative. TTE negative for vegetations. Continue Vancomycin IV. Pharmacy to dose. Goal trough ~15. Vanc trough 17 yesterday. May need to consider starting rifampin on discharge. Duration of treatment depends on the clinical picture, but likely 6 weeks due to the surgical wound infection being very deep and concern for OM. Monitor renal function and dose-adjust antibiotics. Will need weekly CBC, BUN/Cr, ESR, CRP, and Vanc trough. Weekly PICC care per protocol. Follow up with ID 11/15/17 at 1350. (3) Surgical wound infection Current Visit: Yes Status: Acute Causative organism unclear, but likely S. epi given the blood culture results. Etiology unclear. Status post PLIF L2-L5 10/03/[address] Mccormick. Failed outpatient oral antibiotics (Keflex). CT of the T-spine and L-spine showed findings concerning for displacement of the hardware. No pre-op inflammatory markers were checked. Ortho consulted and following. Status post I & D of the lumbar wound with removal of the hardware and packing of the lumbar wound 10/29/[address] Mccormick. Operative note reviewed. Gross purulence deep into the subcutaneous fascia and muscle. Intra-op cultures grew S. epi. ESR >130. CRP 53. Continue Vancomycin IV. Pharmacy to dose. Goal trough ~15. Add Rifampin 300mg PO BID at discharge. Check baseline LFTs. Duration of treatment depends on the clinical picture, but likely 6 weeks due to the extent of the infection. Risks, benefits, and alternatives of long-term IV antibiotics discussed with the patient and her sister. All questions were answered and the patient is agreeable to proceed with long-term IV antibiotics. Monitor renal function and for drug toxicity and dose-adjust antibiotics. Okay to consult VAT for PICC line placement. Will need weekly CBC, BUN/Cr, ESR, CRP, and Vanc trough every Sunday. Will need weekly PICC care per protocol. Follow up with ID 11/15/17 at 1350. Qualifiers: Encounter type: initial encounter Qualified Code(s): T81.4XXA - Infection following a procedure, initial encounter (4) Degenerative scoliosis in adult patient Current Visit: No Status: Chronic Status post PILF L2-L5 10/03/[address] Mccormick. Hardware removed due to infection. Further management per Dr. Mccormick. (5) Lumbar stenosis Current Visit: No Status: Chronic Status post PILF L2-L5 10/03/[address] Mccormick. Hardware removed due to infection. Further management per Dr. Mccormick. Qualifiers: Neurogenic claudication status: with neurogenic claudication Qualified Code (s): M48.062 - Spinal stenosis, lumbar region with neurogenic claudication (6) Lumbar radiculopathy Current Visit: No Status: Chronic Status post PILF L2-L5 10/03/[address] Mccormick. Hardware removed due to infection. Further management per Dr. Mccormick. (7) Back pain Current Visit: Yes Status: Acute Likely secondary to recent surgical procedure. Pain management per Dr. Mccormick's recommendations. Qualifiers: Back pain location: low back pain Chronicity: acute Back pain laterality : unspecified Sciatica presence: unspecified whether sciatica present Qualified Code(s): M54.5 - Low back pain (8) Status post lumbar spinal fusion Current Visit: Yes Status: Acute Status post PILF L2-L5 10/03/[address] Mccormick. Hardware removed due to infection. Further management per Dr. Mccormick. - Subjective Interval history: Patient seen and examined. No acute events noted overnight. Status post irrigation and debridement and closure of the lumbar wound by Dr. Mccormick . States her back is still pretty painful. Denies fevers, chills, or rigors. Denies chest pain, shortness of breath, or cough. Denies nausea, vomiting, or diarrhea. Reports a BM a couple of days ago. Denies abdominal pain or urinary complaints. Denies oral thrush or new skin lesions. States her appetite is okay. Infect Dis PN-Objective Data - Labs CBC & Chem 7: 11/05/17 04:00 11/05/17 04:00 Labs: Laboratory Results - last 24 hr 11/05/17 11/05/17 04:00 04:00 WBC 13.0 H RBC 4.57 Hgb 10.6 L Hct 35.0 L MCV 76.6 L MCH 23.2 L MCHC 30.3 L RDW 20.9 H Plt Count 456 H MPV 10.0 Immature Gran % 0.3 Seg Neutrophils % 70.4 Lymphocytes % 15.6 Monocytes % 7.1 Eosinophils % 6.1 Basophils % 0.5 Neutrophils # 9.2 H Lymphocytes # 2.0 Monocytes # 0.9 Eosinophils # 0.8 H Basophils # 0.1 Sodium 138 Potassium 4.2 Chloride 104 Carbon Dioxide 28 BUN 7 L Creatinine 0.50 L Est GFR ( Amer) > 60 Est GFR (Non-Af Amer) > 60 BUN/Creatinine Ratio 14 Glucose 120 H Calculated Osmolality 285 Calcium 8.9 Cultures: Cultures 10/30/17 16:19 Blood Culture - Final Peripheral Venipuncture No growth. 10/30/17 16:24 Blood Culture - Final Peripheral Venipuncture No growth. 11/01/17 16:42 Blood Culture - Preliminary Peripheral Venipuncture No growth. Exam - Constitutional Vitals: Temp Pulse Resp BP Pulse Ox 99.3 F 112 20 138/72 95 11/05/17 11:34 11/05/17 11:34 11/05/17 11:34 11/05/17 11:34 11/05/17 11:34 General appearance: cooperative, no acute distress, obese - Head Head exam: Present: atraumatic, normal inspection, normocephalic - Eye Eye exam: Present: EOMI, normal appearance, PERRL Pupils: Present: normal accommodation Additional comments: No subconjunctival hemorrhage noted. - ENT ENT exam: Present: mucous membranes moist - Neck Neck exam: Present: normal inspection - Respiratory Respiratory exam: Present: CTAB. Absent: rales, respiratory distress, rhonchi, wheezes - Cardiovascular Cardiovascular exam: Present: RRR, +S1, +S2 - GI/Abdominal GI/Abdominal exam: Present: distended (obese), normal bowel sounds, soft. Absent: tenderness - Extremities Exam Extremities exam: Present: normal inspection. Absent: joint swelling, pedal edema, tenderness - Back Exam Additional comments: Surgical wound dressing C/D/I without redness, warmth, or drainage noted. - Neurological Exam Neurological exam: Present: alert, oriented X3, no focal deficits - Psychiatric Psychiatric exam: Present: normal affect, normal mood - Skin Skin exam: Present: dry, intact, normal color, warm Additional comments: No endocarditis stigmata noted. - VTE Documentation of Mechanical Device: Intermittent pneumatic compression device Consult Discharge Plan - Plan Referrals: Dominic Martins Jr, MD [Primary Care Provider] - - Attending Attestation I examined this patient and my medical decision-making was reviewed with the Resident Physician. I agree with the documented findings, disposition and treatment plan as described except to the extent set forth below.
[2017-11-05] MEDS: OXYCODONE Oral CONC 10 MG/0.5 ML ORAL.SYG SL PRN ×2 (12:27→18:11)
[2017-11-05 15:21] VITALS: BP 136/82
--- NOTE | 2017-11-05 17:28 | Discharge Summary ---
Date of Encounter: 11/05/17 Time of Encounter: 17:26 - Discharge Diagnosis (1) Degenerative scoliosis in adult patient Priority: Secondary Status: Chronic (2) Surgical wound infection Priority: Primary Status: Acute Qualifiers: Encounter type: initial encounter Qualified Code(s): T81.4XXA - Infection following a procedure, initial encounter - Discharge Medications Prescriptions: HYDROcodone/Acet 10/325 mg [Odanah 10-325 mg] 1 each PO Q4HR PRN 4 Days #30 tablet PRN Reason: Mild To Moderate Pain diazePAM [Valium] 5 mg PO Q8H PRN 10 Days #30 tablet PRN Reason: Spasms Home Medications: Albuterol Sulfate [Proventil Hfa] 2 puff IH Q4H PRN 09/27/15 [History] Aspirin Enteric Coated [Aspirin EC] 81 mg PO QAM 09/27/15 [History] Cetirizine HCl [Zyrtec] 10 mg PO QPM 09/27/15 [History] Clopidogrel [Plavix] 75 mg PO QAM 09/27/15 [History] Cyclobenzaprine [Flexeril] 5 mg PO TID PRN 09/27/15 [History] Diclofenac Sodium [Voltaren] 50 mg PO TID 09/27/15 [History] Esomeprazole Magnesium [Nexium] 40 mg PO BID 09/27/15 [History] Fluticasone Propionate Nasal [Flonase] 50 mcg NS DAILY PRN 09/27/15 [History] Furosemide [Lasix] 20 mg PO QAM 09/27/15 [History] LORazepam [Ativan] 1 mg PO TID PRN 09/27/15 [History] Lisinopril [Zestril] 2.5 mg PO QAM 09/27/15 [History] Montelukast [Singulair] 10 mg PO QAM 09/27/15 [History] SUMAtriptan succinate [Imitrex] 50 mg PO AD PRN 09/27/15 [History] Sertraline [Zoloft] 100 mg PO QPM 09/27/15 [History] Sildenafil Citrate [Revatio] 20 mg PO TID 09/27/15 [History] Sucralfate [Carafate] 1 gm PO TID 09/27/15 [History] Doxazosin [Cardura] 1 mg PO HS 10/03/17 [History] Nortriptyline HCl 50 mg PO HS 10/03/17 [History] Cyclobenzaprine [Flexeril] 10 mg PO TID PRN tablet 11/05/17 [Rx] HYDROcodone/Acet 10/325 mg [Odanah 10-325 mg] 1 each PO Q4HR PRN 4 Days #30 tablet 11/05/17 [Rx] diazePAM [Valium] 5 mg PO Q8H PRN 10 Days #30 tablet 11/05/17 [Rx] Allergies/Adverse Reactions: 3 Allergy/AdvReac Type Severity Reaction Status Date / Time codeine Allergy See Verified 10/24/17 04:25 Comments nitrofurantoin Allergy Hives Verified 10/24/17 04:25 [From Macrobid] Penicillins Allergy Hives Verified 10/24/17 04:25 sulfamethoxazole Allergy Hypotension Verified 10/24/17 04:25 [From Septra] Tetracycline Allergy Hives Verified 10/24/17 04:25 trimethoprim [From ] Allergy Hypotension Verified 10/24/17 04:25 Sulfa (Sulfonamide AdvReac Hypotension Verified 10/24/17 04:25 Antibiotics) Labs on day of discharge: Labs from last 24 hours 11/05/17 11/05/17 04:00 04:00 WBC 13.0 H RBC 4.57 Hgb 10.6 L Hct 35.0 L MCV 76.6 L MCH 23.2 L MCHC 30.3 L RDW 20.9 H Plt Count 456 H MPV 10.0 Immature Gran % 0.3 Seg Neutrophils % 70.4 Lymphocytes % 15.6 Monocytes % 7.1 Eosinophils % 6.1 Basophils % 0.5 Neutrophils # 9.2 H Lymphocytes # 2.0 Monocytes # 0.9 Eosinophils # 0.8 H Basophils # 0.1 Sodium 138 Potassium 4.2 Chloride 104 Carbon Dioxide 28 BUN 7 L Creatinine 0.50 L Est GFR ( Amer) > 60 Est GFR (Non-Af Amer) > 60 BUN/Creatinine Ratio 14 Glucose 120 H Calculated Osmolality 285 Calcium 8.9 Preliminary micro results at discharge 11/01/17 16:42 Blood Culture - Preliminary Peripheral Venipuncture No growth. - Impressions ITS Impressions Echocardiogram 10/31/17 19:00 Impressions: LVEF 45-50%. Low normal to mildly reduced LV systolic function. Indeterminate diastolic function. Mildly dilated left ventricle. Atypical septal motion. Normal right ventricular structure and function. Mild mitral regurgitation. Mild-moderate tricuspid regurgitation. Moderate-severe pulmonary hypertension. There is a trivial pericardial effusion present. There is no echocardiographic evidence of tamponade. Device lead visualized in the right atrium and right ventricle. No findings suggestive of infectious material. Left Ventricular Wall Motion: Rest Echo Findings The apical septal and mid inferior septal mckeon were dyskinetic. 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 The apical inferior, mid inferior, basal inferior and mid inferior lateral mckeon were not visualized. All other wall segments showed normal motion. Findings: Study Quality * Technically adequate exam. ECG Findings * Tachycardic. Probably paced ventricular rhythm. Left Ventricle * LVEF 45-50%. * Indeterminate diastolic function. * Mildly dilated left ventricle. * Atypical septal motion consistent with paced rhythm. Right Ventricle * Normal right ventricular structure and function. Left Atrium * Mildly dilated left atrium. Right Atrium * Normal right atrial size. Aortic Valve * No aortic regurgitation. * Aortic valve not well visualized. * No aortic stenosis. Mitral Valve * Mildly thickened mitral valve leaflets. * No mitral stenosis. * Mild mitral annular calcification * Mild mitral regurgitation. Tricuspid Valve * Normal tricuspid valve structure. * Mild-moderate tricuspid regurgitation. * Estimated RA pressure is 15 mmHg. * Estimated RVSP is 62 mmHg. * Moderate-severe pulmonary hypertension. Pulmonic Valve * Pulmonic valve is not well visualized. * No pulmonic stenosis. * No pulmonic regurgitation. Pulmonary Artery * Pulmonary artery not well visualized. Aorta * Normally sized aortic root. Pericardium * There is a trivial pericardial effusion present. * There is no echocardiographic evidence of tamponade. Device lead * A device lead was visualized in the right atrium and right ventricle. Interatrial Septum * Interatrial septum not well evaluated. IVC * The IVC is dilated. * < 50% respiratory change. Date of admission: 10/29/17 17:15 Primary care physician: Dominic Martins Jr, MD Consults: 10/31/17 10:46 Consult to Nurse Navigator [CONS] Routine Comment: spine navigator Consult to Occupational Therapy [CONS] Routine Comment: Evaluate, develop and implement POC Reason for Consult: post operative rehab Consult to Physical Therapy [CONS] Routine Comment: Evaluate, develop and implement POC Reason for Consult: postoperative rehab Consult to Mechanical Development Engineer [CONS] Routine Reason for SW Consult: Intravenous antibiotics HIVAT 11/02/17 14:21 Consult to Invasive Line Access Team [CONS] Routine Reason for Consult: Picc Line Insertion Line Type: PICC - Patient Status Disposition: Transfer SNF Functional capacity at discharge: uses cane/walker Overall status at discharge: patient is not back to baseline - Discharge Instructions Follow Up With: Dominic Martins Jr, MD [Primary Care Provider] - - Diet and Activity Activity: as per physical therapy Diet: advance to your usual diet - Hospital Course Hospital course: Ms. Marcial is a 62 year old female who had a history of previous lumbar fusion and decompression for adult scoliosis approximately one month ago. She was admitted with wound drainage and had been started on oral antibiotics in the office setting. After medical optimization and she underwent irrigation and debridement and removal of hardware as well as packing of her lumbar wound. Intraoperatively there was purulent material in the deep and superficial tissues as well as drainage. The wound was packed with Betadine and she was taken to the operative theater 2 days after this procedure to evaluate the wound. She was started on empiric antibiotic therapy in the form of vancomycin. Postoperative day 2 from her initial procedure inspection of the wound revealed beefy red granulation tissue with significant improvement in appearance of the soft tissues. We closed the wound in layers and obtained an infectious disease consult postoperatively. The infectious disease service suggested 6 weeks of IV antibiotic treatment and repeat blood cultures were obtained to await clearance of the organism and subsequent PIC line placement. Blood cultures revealed clearance of the bacteremia and a PICC line was placed November 02. The patient's hospital course was otherwise unremarkable. She remained afebrile throughout the hospitalization. She had episodes throughout the hospitalization with pain control and agents such as oral narcotics and Valium, muscle relaxants, Toradol were used to provide some analgesia and comfort. She mobilized poorly and with intermittent episodes of pain during mobilization. It was decided to send her to a rehabilitation facility 11/05/2017 with her home medications as well as Valium and hydrocodone and muscle relaxants. The infectious disease service recommended Vanco and rifampin on discharge in 6 weeks if IV antibiotic therapy. She was set up for follow-up in Dr. Mccormick's office in 2 weeks post discharge as well as follow- up with Dr. Jay of infectious disease including weekly blood draws. She was instructed to call if she had further drainage, fevers or chills, worsening neurologic function, or continued problems with pain control. She was discharged in fair condition 11/05/2017. - Time Spent with Patient Total time spent providing and/or coordinating discharge services: - VTE Documentation of Mechanical Device: Intermittent pneumatic compression device
--- NOTE | 2017-11-05 18:08 | Event Note ---
Date of Encounter: 11/05/17 Time of Encounter: 18:03 Alerted by patient's nurse that she is discharging per patient request. No scripts present for the antibiotics. ID gone for the day. Discussed with Dr. Mccormick via phone re: prescriptions and patient's need for prescription at this time for discharge he states he is agreeable to me writing the scripts. Will prescribe Rifampin PO and Vancomycin IV as documented by Dr. Mccormick and ID as per record requires for prescribing of these medications.
[2017-11-05] MEDS ORDERED: Aminoglycoside Consult 1 EACH MC ONE (18:19)
== END 2017-11-05 18:20 | DRG 463 ==
LOC: 2SOUTHHOLD 04:19 → EMEROO 04:19 → 2SOUTHHOLD 08:30 → 3NENU 23:24
PROVIDERS: ADMIT Orthopaedic Surgery Orthopaedic Surgery of the Spine; ATTEND Orthopaedic Surgery Orthopaedic Surgery of the Spine

== ENCOUNTER 2018-01-18 15:24 | Inpatient (IN) ==
--- NOTE | 2018-01-18 15:59 | Emergency Department Note ---
Disposition Clinical Impression: Diarrhea Disposition: Admitted As Inpatient Condition: Fair Referrals: Dominic Martins Jr, MD [Primary Care Provider] - Forms: ED Satisfaction Letter Time of Disposition: 18:23 Nausea/Vomiting/Diarrhea HPI - General Chief complaint: ED Nausea/Vomiting/Diarrhea Stated complaint: BETH [id number] Time Seen by Provider: 01/18/18 15:34 Source: patient Limitations: no limitations Nursing Notes Reviewed: Yes Vital Signs Reviewed: Yes - History of Present Illness HPI Narrative: Patient is a 62-year-old female with a past medical history of pacemaker and HTN with a PSH of back surgery that presents for diarrhea for the past 8 days. She denies any hematochezia or melena. She admits to a subjective fever as well as chills and nausea. She denies any vomiting. She denies any abdominal pain. She says her diarrhea and nausea is exacerbated by eating. Denies any hematuria or dysuria. Patient says that she has been hospitalized for the past 2 -3 months up until 3 weeks ago for an infected PICC line of her right arm. She is currently on vancomycin and another antibiotic she is unsure of. - Related Data Home Medications Medication Instructions Recorded Confirmed Albuterol Sulfate [Proventil Hfa] 2 puff IH Q4H PRN 09/27/15 10/24/17 Aspirin Enteric Coated [Aspirin EC] 81 mg PO QAM 09/27/15 10/24/17 Cetirizine HCl [Zyrtec] 10 mg PO QPM 09/27/15 10/24/17 Clopidogrel [Plavix] 75 mg PO QAM 09/27/15 10/24/17 Diclofenac Sodium [Voltaren] 50 mg PO TID 09/27/15 10/24/17 Esomeprazole Magnesium [Nexium] 40 mg PO BID 09/27/15 10/24/17 Fluticasone Propionate Nasal 50 mcg NS DAILY PRN 09/27/15 10/24/17 [Flonase] Furosemide [Lasix] 20 mg PO QAM 09/27/15 10/24/17 LORazepam [Ativan] 1 mg PO TID PRN 09/27/15 10/24/17 Lisinopril [Zestril] 2.5 mg PO QAM 09/27/15 10/24/17 Montelukast [Singulair] 10 mg PO QAM 09/27/15 10/24/17 SUMAtriptan succinate [Imitrex] 50 mg PO AD PRN 09/27/15 10/24/17 Sertraline [Zoloft] 100 mg PO QPM 09/27/15 10/24/17 Sildenafil Citrate [Revatio] 20 mg PO TID 09/27/15 10/24/17 Sucralfate [Carafate] 1 gm PO TID 09/27/15 10/24/17 Doxazosin [Cardura] 1 mg PO HS 10/03/17 10/24/17 Nortriptyline HCl 50 mg PO HS 10/03/17 10/24/17 Previous Rx's Medication Instructions Recorded Cyclobenzaprine [Flexeril] 10 mg PO TID PRN tablet 11/05/17 HYDROcodone/Acet 10/325 mg [[place] 1 each PO Q4HR PRN 4 Days #30 11/05/17 10-325 mg] tablet Rifampin [Rifadin] 300 mg PO BID 7 Days #14 capsule 11/05/17 diazePAM [Valium] 5 mg PO Q8H PRN 10 Days #30 tablet 11/05/17 Allergies Allergy/AdvReac Type Severity Reaction Status Date / Time codeine Allergy See Verified 10/24/17 04:25 Comments nitrofurantoin Allergy Hives Verified 10/24/17 04:25 [From Macrobid] Penicillins Allergy Hives Verified 10/24/17 04:25 sulfamethoxazole Allergy Hypotension Verified 10/24/17 04:25 [From Septra] Tetracycline Allergy Hives Verified 10/24/17 04:25 trimethoprim [From Septra] Allergy Hypotension Verified 10/24/17 04:25 phenylbutazone AdvReac See Verified 11/22/17 11:54 [From Butazolidin] Comments Sulfa (Sulfonamide AdvReac Hypotension Verified 10/24/17 04:25 Antibiotics) Constitutional: Reports: fever (Subjective ), chills Cardiovascular: Denies: chest pain, palpitations, dyspnea on exertion, edema, syncope Respiratory: Denies: cough, dyspnea, wheezes, hemoptysis, stridor Gastrointestinal: Reports: nausea, diarrhea. Denies: abdominal pain, vomiting, constipation, hematemesis, melena, hematochezia Genitourinary: Denies: dysuria, frequency, hematuria, discharge Past Medical History - Past Medical History Medical history: Reports: asthma, CHF, COPD, GERD, hypertension, myocardial infarction Surgical history: Reports: appendectomy, hysterectomy, pacemaker/AICD Psychiatric history: Reports: anxiety, panic disorder - Social History Smoking Status: Never smoker Smokeless Tobacco Status: No Alcohol use: Reports: none Drug use: Reports: none Physical Exam - General Limitations: no limitations General appearance: alert, in no apparent distress - Chest Chest inspection: Present: normal inspection, symmetric chest wall rise - Respiratory Respiratory exam: Present: normal lung sounds bilaterally - Cardiovascular Cardiovascular exam: Present: regular rate, normal rhythm, normal heart sounds, +S1, +S2 - Abdominal Exam Abdominal exam: Present: tenderness (In the left and right lower quadrant), normal bowel sounds, other (Hx of Appendectomy). Absent: distention, guarding, rebound, rigidity, Sanchez's sign Abdominal tenderness: Present: RLQ, LUQ Course Course Narrative: Patient has risk factors for C.Diff. She has recent history of extensive hospitalization (1-2 mo.) with treatment of antibiotics. Patient is also on PPI. Although patient is currently on vancomycin (which is the treatment for C.Diff) we will go ahead and order C. difficile toxin PCR. We will also obtain a CT of the abdomen without contrast. Vital signs are stable patient is currently afebrile. Diarrhea unlikely to be viral due given number of days of symptoms. Update 01/18/18 1721: CT abdomen shows Interval development of erosive change, loss of vertebral body height, and endplate sclerosis at the L4-L5 level, concerning for discitis/osteomyelitis. Spoke to Dr. Mccormick from orthopedic surgery was consult and he said that he would see the patient tomorrow for evaluation. CT also shows Interval development of diffuse colonic wall thickening of the cecum, ascending colon, and transverse colon suggestive of long segment colitis, either infectious or inflammatory. This makes C.Diff very likely. Spoke to hospitalist Dr. Pal who has agreed to admit the patient for further evaluation. - Consultations Consultation #1: Spoke to Dr. Mccormick from orthopedic surgery who agreed to evaluate the patient tomorrow for possible discitis/osteomyelitis of the L4-L5 region. Time: 17:18 Vital Signs Temperature 98.0 F 01/18/18 15:26 Pulse Rate 61 01/18/18 15:26 Respiratory Rate 15 01/18/18 15:26 Blood Pressure 110/69 01/18/18 15:26 O2 Sat by Pulse Oximetry 98 01/18/18 15:26 Temperature 98.0 F 01/18/18 15:54 Pulse Rate 61 01/18/18 15:54 Respiratory Rate 15 01/18/18 15:54 Blood Pressure 110/69 01/18/18 15:54 O2 Sat by Pulse Oximetry 98 01/18/18 15:54 Oxygen Delivery Oxygen Delivery Room Air Nausea/Vomiting/Diarrhea - Lab Data Result diagrams: 01/18/18 16:43 01/18/18 16:43 Lab Results 01/18/18 01/18/18 01/18/18 Range/Units 16:43 16:43 16:43 WBC 9.6 (4.3-11.1) K/mcL RBC 4.60 (3.82-4.97) M/mcL Hgb 10.8 L (11.5-15.4) g/dL Hct 35.8 (35.3-44.9) % MCV 77.8 L (83.0-100.0) fL MCH 23.5 L (28.0-33.3) pg MCHC 30.2 L (31.6-35.5) g/dL RDW 19.1 H (11.5-14.5) % Plt Count 375 (140-400) K/mcL MPV 10.9 (9.4-12.4) fL Immature Gran % Test Not Performed Seg Neutrophils % 64.0 % Lymphocytes % 18.0 % Monocytes % 4.0 % Eosinophils % 14.0 % Basophils % Test Not Performed Neutrophils # 6.1 (1.6-8.9) K/mcL Lymphocytes # 1.7 (0.6-4.6) K/mcL Monocytes # 0.4 (0.0-1.3) K/mcL Eosinophils # 1.3 H (0.0-0.6) K/mcL Basophils # Test Not Performed Platelet Estimate Normal (Normal) ESR 55 H (0-15) mm/hr Sodium 135 L (136-145) mEq/L Potassium 3.1 L (3.5-5.1) mEq/L Chloride 102 (98-107) mEq/L Carbon Dioxide 21 L (23-29) mEq/L BUN 11 (8-23) mg/dL Creatinine 0.78 (0.60-1.20) mg/dL Est GFR ( Amer) > 60 (> 60) Est GFR (Non-Af Amer) > 60 (> 60) BUN/Creatinine Ratio 14 (6-26) Glucose 109 H (70-105) mg/dL Calculated Osmolality 280 (280-300) Calcium 9.2 (8.6-10.3) mg/dL C-Reactive Protein 137 H (Less than 10) mg/L - Radiology Data Radiology results reviewed: Yes I reviewed the patient's radiology results.
[2018-01-18 17:21] LABS: Hematocrit 35.8 % (35.3-44.9); Hemoglobin 10.8 g/dL (11.5-15.4); Mean Corpuscular HGB Conc 30.2 g/dL (31.6-35.5); Mean Corpuscular Hemoglobin 23.5 pg (28.0-33.3); Mean Corpuscular Volume 77.8 fL (83.0-100.0); Mean Platelet Volume 10.9 fL (9.4-12.4); Platelet Count 375 K/mcL (140-400); Red Cell Distribution Width 19.1 % (11.5-14.5)
[2018-01-18 17:44] LABS: BUN/Creatinine Ratio 14 (6-26); Blood Urea Nitrogen 11 mg/dL (8-23); C-Reactive Protein 137 mg/L (Less than 10); Calcium 9.2 mg/dL (8.6-10.3); Carbon Dioxide 21 mEq/L (23-29); Chloride 102 mEq/L (98-107); Glucose 109 mg/dL (70-105); Osmolality,Calculated 280 (280-300); Potassium 3.1 mEq/L (3.5-5.1); Sodium 135 mEq/L (136-145); eGFR For African Americans > 60 (> 60); eGFR For Non-African Americans > 60 (> 60)
[2018-01-18 17:48] LABS: Eosinophils # 1.3 K/mcL (0.0-0.6); Lymphocytes # 1.7 K/mcL (0.6-4.6); Monocytes # 0.4 K/mcL (0.0-1.3); Neutrophils # 6.1 K/mcL (1.6-8.9); Platelet Estimate Normal (Normal)
--- NOTE | 2018-01-18 18:11 | Emergency Department Note ---
Disposition Clinical Impression: Diarrhea Qualifiers: Diarrhea type: unspecified type Qualified Code(s): R19.7 - Diarrhea, unspecified Disposition: Admitted As Inpatient Condition: Fair Time of Disposition: 19:52 General Adult HPI - General Chief complaint: ED Nausea/Vomiting/Diarrhea Stated complaint: DIAHRREA X8DAYS Time Seen by Provider: 01/18/18 15:34 Source: patient Limitations: no limitations - History of Present Illness Pain Scale: 7 - Related Data Home Medications Medication Instructions Recorded Confirmed Albuterol Sulfate [Proventil Hfa] 2 puff IH Q4H PRN 09/27/15 01/18/18 Aspirin Enteric Coated [Aspirin EC] 81 mg PO QAM 09/27/15 01/18/18 Cetirizine HCl [Zyrtec] 10 mg PO QPM 09/27/15 01/18/18 Clopidogrel [Plavix] 75 mg PO QAM 09/27/15 01/18/18 Diclofenac Sodium [Voltaren] 50 mg PO TID 09/27/15 01/18/18 Esomeprazole Magnesium [Nexium] 40 mg PO BID 09/27/15 01/18/18 Fluticasone Propionate Nasal 50 mcg NS DAILY PRN 09/27/15 01/18/18 [Flonase] Furosemide [Lasix] 20 mg PO QAM 09/27/15 01/18/18 LORazepam [Ativan] 1 mg PO TID PRN 09/27/15 01/18/18 Lisinopril [Zestril] 2.5 mg PO QAM 09/27/15 01/18/18 Montelukast [Singulair] 10 mg PO QAM 09/27/15 01/18/18 SUMAtriptan succinate [Imitrex] 50 mg PO AD PRN 09/27/15 01/18/18 Sertraline [Zoloft] 100 mg PO QPM 09/27/15 01/18/18 Sildenafil Citrate [Revatio] 20 mg PO TID 09/27/15 01/18/18 Sucralfate [Carafate] 1 gm PO TID 09/27/15 01/18/18 Doxazosin [Cardura] 1 mg PO HS 10/03/17 01/18/18 Nortriptyline HCl 50 mg PO HS 10/03/17 01/18/18 Benzonatate [Benzonatate] 100 mg PO TID 01/18/18 01/18/18 HYDROcodone/Acet 7.5/325 mg [[place] 1 tab PO Q6H PRN 01/18/18 01/18/18 7.5-325 mg] Previous Rx's Medication Instructions Recorded Cyclobenzaprine [Flexeril] 10 mg PO TID PRN tablet 11/05/17 Rifampin [Rifadin] 300 mg PO BID 7 Days #14 capsule 11/05/17 diazePAM [Valium] 5 mg PO Q8H PRN 10 Days #30 tablet 11/05/17 Allergies Allergy/AdvReac Type Severity Reaction Status Date / Time codeine Allergy See Verified 01/18/18 18:26 Comments nitrofurantoin Allergy Hives Verified 01/18/18 18:26 [From Macrobid] Penicillins Allergy Hives Verified 01/18/18 18:26 sulfamethoxazole Allergy Hypotension Verified 01/18/18 18:26 [From Septra] Tetracycline Allergy Hives Verified 01/18/18 18:26 trimethoprim [From Septra] Allergy Hypotension Verified 01/18/18 18:26 phenylbutazone AdvReac See Verified 01/18/18 18:26 [From Butazolidin] Comments Sulfa (Sulfonamide AdvReac Hypotension Verified 01/18/18 18:26 Antibiotics) Constitutional: Reports: fever (Subjective ), chills Cardiovascular: Denies: chest pain, palpitations, dyspnea on exertion, edema, syncope Respiratory: Denies: cough, dyspnea, wheezes, hemoptysis, stridor Gastrointestinal: Reports: nausea, diarrhea. Denies: abdominal pain, vomiting, constipation, hematemesis, melena, hematochezia Genitourinary: Denies: dysuria, frequency, hematuria, discharge Past Medical History - Past Medical History Medical history: Reports: asthma, CHF, COPD, GERD, hypertension, myocardial infarction Surgical history: Reports: appendectomy, hysterectomy, pacemaker/AICD Psychiatric history: Reports: anxiety, panic disorder - Social History Smoking Status: Never smoker Smokeless Tobacco Status: No Alcohol use: Reports: none Drug use: Reports: none Physical Exam - General Limitations: no limitations General appearance: alert, in no apparent distress Course Vital Signs Temperature 98.0 F 01/18/18 15:26 Pulse Rate 61 01/18/18 15:26 Respiratory Rate 15 01/18/18 15:26 Blood Pressure 110/69 01/18/18 15:26 O2 Sat by Pulse Oximetry 98 01/18/18 15:26 Temperature 98.0 F 01/18/18 15:54 Pulse Rate 65 01/18/18 18:53 Respiratory Rate 16 01/18/18 18:53 Blood Pressure 106/89 01/18/18 18:53 O2 Sat by Pulse Oximetry 98 01/18/18 18:53 Oxygen Delivery Oxygen Delivery Room Air Medical Decision Making - Lab Data Result diagrams: 01/18/18 16:43 01/18/18 16:43 Lab Results 01/18/18 01/18/18 01/18/18 Range/Units 16:43 16:43 16:43 WBC 9.6 (4.3-11.1) K/mcL RBC 4.60 (3.82-4.97) M/mcL Hgb 10.8 L (11.5-15.4) g/dL Hct 35.8 (35.3-44.9) % MCV 77.8 L (83.0-100.0) fL MCH 23.5 L (28.0-33.3) pg MCHC 30.2 L (31.6-35.5) g/dL RDW 19.1 H (11.5-14.5) % Plt Count 375 (140-400) K/mcL MPV 10.9 (9.4-12.4) fL Immature Gran % Test Not Performed Seg Neutrophils % 64.0 % Lymphocytes % 18.0 % Monocytes % 4.0 % Eosinophils % 14.0 % Basophils % Test Not Performed Neutrophils # 6.1 (1.6-8.9) K/mcL Lymphocytes # 1.7 (0.6-4.6) K/mcL Monocytes # 0.4 (0.0-1.3) K/mcL Eosinophils # 1.3 H (0.0-0.6) K/mcL Basophils # Test Not Performed Platelet Estimate Normal (Normal) ESR 55 H (0-15) mm/hr Sodium 135 L (136-145) mEq/L Potassium 3.1 L (3.5-5.1) mEq/L Chloride 102 (98-107) mEq/L Carbon Dioxide 21 L (23-29) mEq/L BUN 11 (8-23) mg/dL Creatinine 0.78 (0.60-1.20) mg/dL Est GFR ( Amer) > 60 (> 60) Est GFR (Non-Af Amer) > 60 (> 60) BUN/Creatinine Ratio 14 (6-26) Glucose 109 H (70-105) mg/dL Calculated Osmolality 280 (280-300) Calcium 9.2 (8.6-10.3) mg/dL C-Reactive Protein 137 H (Less than 10) mg/L Stl C. diff Tox B Gene (Negative) 01/18/18 Range/Units 17:45 WBC (4.3-11.1) K/mcL RBC (3.82-4.97) M/mcL Hgb (11.5-15.4) g/dL Hct (35.3-44.9) % MCV (83.0-100.0) fL MCH (28.0-33.3) pg MCHC (31.6-35.5) g/dL RDW (11.5-14.5) % Plt Count (140-400) K/mcL MPV (9.4-12.4) fL Immature Gran % Seg Neutrophils % % Lymphocytes % % Monocytes % % Eosinophils % % Basophils % Neutrophils # (1.6-8.9) K/mcL Lymphocytes # (0.6-4.6) K/mcL Monocytes # (0.0-1.3) K/mcL Eosinophils # (0.0-0.6) K/mcL Basophils # Platelet Estimate (Normal) ESR (0-15) mm/hr Sodium (136-145) mEq/L Potassium (3.5-5.1) mEq/L Chloride (98-107) mEq/L Carbon Dioxide (23-29) mEq/L BUN (8-23) mg/dL Creatinine (0.60-1.20) mg/dL Est GFR ( Amer) (> 60) Est GFR (Non-Af Amer) (> 60) BUN/Creatinine Ratio (6-26) Glucose (70-105) mg/dL Calculated Osmolality (280-300) Calcium (8.6-10.3) mg/dL C-Reactive Protein (Less than 10) mg/L Stl C. diff Tox B Gene Positive (Negative) Attestation Statement - Attestation Attestation: I examined this patient and my medical decision-making was reviewed with the Resident Physician. I agree with the documented findings, disposition and treatment plan as described except to the extent set forth below. I had face-to -face time with the patient patient has persistent diarrhea for the last 8 days with some abdominal pain. Patient's been on IV antibiotics for another problem and the concern is she has had C. difficile. Exam on of the abdomen shows some mild tenderness no guarding or rebound. CT does shows extensive colitis possible discitis. He will see the patient in consult. Patient will be admitted.
[2018-01-18] MEDS ORDERED: *HR* OxyCODONE/APAP 7.5/325 TABLET PO ONE (19:55)
[2018-01-18] MEDS ORDERED: Fluticasone Propionate Nasal 50 MCG/SPRAY BOTTLE NS PRN (20:35)
[2018-01-18] MEDS ORDERED: SUMAtriptan succinate 50 MG TABLET PO PRN (20:35)
[2018-01-18] MEDS ORDERED: Naloxone 0.4 MG/ML INJ IVP PRN (20:37)
[2018-01-18] MEDS ORDERED: diazePAM 5 MG TABLET PO PRN (21:03)
--- NOTE | 2018-01-18 21:06 | Internal Med History&Physical ---
Date of Encounter: 01/18/18 Time of Encounter: 21:04 Internal Medicine - H&P: HPI Chief complaint: Diarrhea Admitted From: Home Plans for Post Hospital Care: Home History of present illness: Ms. Marcial is a 62 year old female with past medical history of hypertension, CHF , COPD, and recurrent back surgeries with a complicated hospital stay with discitis and osteomyelitis on prolonged antibiotics. The patient stated that she finished her last course of IV antibiotics yesterday. She reports to the ER with complains of 8 days of diarrhea about 4-5 episodes of watery nonbloody diarrhea. She denies fever or chills, she denies abdominal distention, she denies sick contacts. She presented to the ER because diarrhea was not resolved by [id number] medications. The patient states that her chronic back pain has been controlled, and is no new symptoms regarding her back. She has no lower extremity weakness, she has no urinary or bowel incontinence. The patient denies chest pain, shortness of breath, cough, no neurological or genitourinary symptoms. Past Med Surg Social Fam HX - Past Medical History Medical history: asthma, CHF, COPD, GERD, hypertension, myocardial infarction Psychiatric history: anxiety, panic disorder - Past Surgical History Surgical History: appendectomy, hysterectomy, pacemaker/AICD - Social History Smoking Status: Never smoker Smokeless Tobacco Status: No Alcohol use: none Drug use: none Internal Medicine - H&P: Meds Albuterol Sulfate [Proventil Hfa] 2 puff IH Q4H PRN 09/27/15 [History] Aspirin Enteric Coated [Aspirin EC] 81 mg PO QAM 09/27/15 [History] Cetirizine HCl [Zyrtec] 10 mg PO QPM 09/27/15 [History] Clopidogrel [Plavix] 75 mg PO QAM 09/27/15 [History] Diclofenac Sodium [Voltaren] 50 mg PO TID 09/27/15 [History] Esomeprazole Magnesium [Nexium] 40 mg PO BID 09/27/15 [History] Fluticasone Propionate Nasal [Flonase] 50 mcg NS DAILY PRN 09/27/15 [History] Furosemide [Lasix] 20 mg PO QAM 09/27/15 [History] LORazepam [Ativan] 1 mg PO TID PRN 09/27/15 [History] Lisinopril [Zestril] 2.5 mg PO QAM 09/27/15 [History] Montelukast [Singulair] 10 mg PO QAM 09/27/15 [History] SUMAtriptan succinate [Imitrex] 50 mg PO AD PRN 09/27/15 [History] Sertraline [Zoloft] 100 mg PO QPM 09/27/15 [History] Sildenafil Citrate [Revatio] 20 mg PO TID 09/27/15 [History] Sucralfate [Carafate] 1 gm PO TID 09/27/15 [History] Doxazosin [Cardura] 1 mg PO HS 10/03/17 [History] Nortriptyline HCl 50 mg PO HS 10/03/17 [History] Cyclobenzaprine [Flexeril] 10 mg PO TID PRN tablet 11/05/17 [Rx] Rifampin [Rifadin] 300 mg PO BID 7 Days #14 capsule 11/05/17 [Rx] diazePAM [Valium] 5 mg PO Q8H PRN 10 Days #30 tablet 11/05/17 [Rx] Benzonatate [Benzonatate] 100 mg PO TID 01/18/18 [History] HYDROcodone/Acet 7.5/325 mg [[place] 7.5-325 mg] 1 tab PO Q6H PRN 01/18/18 [ History] 3 Allergy/AdvReac Type Severity Reaction Status Date / Time codeine Allergy See Verified 01/18/18 18:26 Comments nitrofurantoin Allergy Hives Verified 01/18/18 18:26 [From Macrobid] Penicillins Allergy Hives Verified 01/18/18 18:26 sulfamethoxazole Allergy Hypotension Verified 01/18/18 18:26 [From Septra] Tetracycline Allergy Hives Verified 01/18/18 18:26 trimethoprim [From Septra] Allergy Hypotension Verified 01/18/18 18:26 phenylbutazone AdvReac See Verified 01/18/18 18:26 [From Butazolidin] Comments Sulfa (Sulfonamide AdvReac Hypotension Verified 01/18/18 18:26 Antibiotics) All Systems PM: A 10-system review of systems was performed and is negative for pertinent findings except as documented above in the HPI. - Constitutional Constitutional: no chills, no fever(s), no malaise - EENT Eyes: no change in vision, no discharge, no pain, no photophobia Ears: no ear discharge, no ear pain, no tinnitus Nose, mouth and throat: no dysphagia, no nasal discharge, no neck pain, no sore throat - Cardiovascular Cardiovascular ROS IM: no chest pain, no diaphoresis, no dyspnea, no lightheadedness, no palpitations, no syncope - Respiratory Respiratory: no cough, no dyspnea, no wheezing, no excessive phlegm production - Gastrointestinal Gastrointestinal: as per HPI - Genitourinary Genitourinary: no change in urinary stream, no dysuria, no flank pain, no hematuria - Musculoskeletal Musculoskeletal ROS IM: no numbness, no tingling - Integumentary Integumentary IM: no rash, no unusual bruising - Neurological Neurological ROS: no confusion, no convulsions, no focal weakness, no numbness, no tingling, no tremor(s) - Hematologic/Lymphatic Hematologic/Lymphatic: no easy bruising - Constitutional Vitals: Temp Pulse Resp BP Pulse Ox 97.7 F 65 16 134/75 98 01/18/18 20:23 01/18/18 20:23 01/18/18 20:23 01/18/18 20:23 01/18/18 19:55 General appearance: Present: A&O X 3, pleasant, no acute distress, obese - Head Head exam: Present: atraumatic, normocephalic - Eye Eye exam: Present: PERRL, conjuntiva pink, sclera anicteric Pupils: Present: PERRL - Neck Neck exam general surgery: Present: supple, trachea midline. Absent: lymphadenopathy - Respiratory Respiratory exam: Present: CTAB. Absent: accessory muscle use, rales, rhonchi, wheezes - Cardiovascular Cardiovascular exam: Present: RRR, +S1, +S2. Absent: diastolic murmur, gallop, rubs, systolic murmur - GI/Abdominal Additional comments: generalized abdominal tenderness without guarding, no rebound. No palpably enlarged organs. Bowel sounds normal in all quadrants. - Extremities Exam Extremities exam: Present: warm, radial pulses palpable and symmetrical. Absent : calf tenderness, cyanotic, pedal edema - Back Exam Back exam: Present: CVA tenderness (L) (spine scar without focal swelling, tenderness, hyperemia, or discharge) - Neurological Exam Neurological exam: Present: alert, CN II-XII intact, oriented X3, no focal deficits. Absent: pronater drift, facial droop, speech deficit - Skin Skin exam: Present: dry, intact Internal Med - H&P Results - Labs CBC & Chem 7: 01/18/18 16:43 01/18/18 16:43 - Assessment and plan (1) C. difficile colitis Current Visit: Yes Status: Acute Assessment and plan: Uncomplicated NO Leukocytosis. Patient presented with a previous history of diarrhea. 6 weeks of antibiotics recent treatment for cellulitis. C. difficile testing is positive. CAT scan with evidence of colitis. No karla-colon. Start patient on vancomycin orally, and Flagyl by mouth. The patient is hemodynamically and clinically stable. (2) HTN (hypertension) Current Visit: Yes Status: Chronic Assessment and plan: continue home meds Qualifiers: Hypertension type: essential hypertension Qualified Code(s): I10 - Essential (primary) hypertension (3) CHF (congestive heart failure) Current Visit: Yes Status: Chronic Assessment and plan: euvolemic on exam no pedal edema CTAB, no JVD Continue home dose of lasix ECHO from 10/2017 noted Qualifiers: Heart failure type: combined systolic and diastolic Heart failure chronicity: chronic Qualified Code(s): I50.42 - Chronic combined systolic ( congestive) and diastolic (congestive) heart failure (4) COPD (chronic obstructive pulmonary disease) Current Visit: Yes Status: Chronic Assessment and plan: not in exacerbation continue home MDIs Qualifiers: COPD type: unspecified COPD Qualified Code(s): J44.9 - Chronic obstructive pulmonary disease, unspecified (5) Personal history of osteomyelitis Current Visit: Yes Status: Acute Assessment and plan: Patient with recent diagnosis of back surgical wound infection and suspected discitis/OM Abd CT done today showed L4-L5 discitis versus osteomyelitis. Patient has completed 6 weeks course of antibiotics yesterday/. Will not give any antibiotics at this time as patient has no new symptoms. Spine surgery-Dr. Mccormick has been consulted by the emergency room already. We will await their recommendations (6) Hypokalemia Current Visit: Yes Status: Acute Assessment and plan: possibly from GI loss from diarrhea and possibly use of diuretics at home Replaced po in the ER Continue to monitor - Time Spent With Patient Total time spent is greater than 50% in coordination of care (as documented) at patient's floor/unit and/or counseling patient:
[2018-01-18] MEDS: metroNIDAZOLE 500 MG TABLET PO SCH (21:33)
[2018-01-18] MEDS: Benzonatate 100 MG CAPSULE PO SCH (21:33)
[2018-01-18] MEDS: Sucralfate 1 GM TABLET PO SCH (21:33)
[2018-01-18] MEDS: Sildenafil Citrate 20 MG TABLET PO SCH (21:33)
[2018-01-18] MEDS: rifAMPin 150 MG CAPSULE PO SCH (21:50)
[2018-01-18] MEDS: Vancomycin Oral Soln 250 MG/5 ML UDC PO SCH (21:51)
[2018-01-19] MEDS: *HR* HYDROcodone/Acet 7.5/325 mg TABLET PO PRN ×2 (04:53→11:40)
[2018-01-19] MEDS: *HR* Enoxaparin 40 MG/0.4 ML SYRINGE SQ SCH (05:00)
[2018-01-19 06:13] LABS: BUN/Creatinine Ratio 14 (6-26); Blood Urea Nitrogen 13 mg/dL (8-23); Calcium 8.7 mg/dL (8.6-10.3); Carbon Dioxide 21 mEq/L (23-29); Chloride 105 mEq/L (98-107); Glucose 109 mg/dL (70-105); Osmolality,Calculated 281 (280-300); Potassium 3.1 mEq/L (3.5-5.1); Sodium 135 mEq/L (136-145); eGFR For African Americans > 60 (> 60); eGFR For Non-African Americans > 60 (> 60)
[2018-01-19 06:28] LABS: Basophils % 0.5 %; Eosinophils # 0.8 K/mcL (0.0-0.6); Eosinophils % 9.9 %; Hematocrit 34.1 % (35.3-44.9); Hemoglobin 10.4 g/dL (11.5-15.4); Immature Granulocytes % 0.4 % (0-4); Lymphocytes # 1.3 K/mcL (0.6-4.6); Lymphocytes % 16.7 %; Mean Corpuscular HGB Conc 30.5 g/dL (31.6-35.5); Mean Corpuscular Hemoglobin 23.8 pg (28.0-33.3); Mean Platelet Volume 10.9 fL (9.4-12.4); Monocytes # 0.9 K/mcL (0.0-1.3); Monocytes % 11.8 %; Neutrophils # 4.6 K/mcL (1.6-8.9); Platelet Count 314 K/mcL (140-400); Red Blood Count 4.37 M/mcL (3.82-4.97); Segmented Neutrophils % 60.7 %
[2018-01-19 07:25] LABS: Platelet Estimate Normal (Normal)
[2018-01-19] MEDS: Sucralfate 1 GM TABLET PO SCH ×3 (07:34→21:18)
[2018-01-19] MEDS: Sildenafil Citrate 20 MG TABLET PO SCH ×3 (07:34→21:27)
[2018-01-19] MEDS: Aspirin Enteric Coated 81 MG Tablet PO SCH (07:34)
[2018-01-19] MEDS: metroNIDAZOLE 500 MG TABLET PO SCH (07:34)
[2018-01-19] MEDS: rifAMPin 150 MG CAPSULE PO SCH (07:35)
[2018-01-19] MEDS: Vancomycin Oral Soln 250 MG/5 ML UDC PO SCH ×4 (07:35→21:18)
[2018-01-19] MEDS: Benzonatate 100 MG CAPSULE PO SCH ×3 (07:37→21:18)
[2018-01-19] MEDS ORDERED: Furosemide 20 MG TABLET PO SCH (09:00)
[2018-01-19] MEDS: Ringers Solution, Lactated 1,000 ML IVC SCH ×2 (13:48→23:56)
--- NOTE | 2018-01-19 14:50 | Internal Med Progress Note ---
Date of Encounter: 01/19/18 Time of Encounter: 14:48 - Assessment and plan (1) C. difficile colitis Current Visit: Yes Status: Acute Assessment and plan: Continue oral vancomycin. We will stop Flagyl. Will start patient on IV fluids given her continued diarrhea. Monitor vital signs closely. Moderate risk for complications. DVT prophylaxis with Lovenox. (2) HTN (hypertension) Current Visit: Yes Status: Chronic Assessment and plan: Blood pressure is well controlled at this time. No changes to current treatment plan. Qualifiers: Hypertension type: essential hypertension Qualified Code(s): I10 - Essential (primary) hypertension (3) CHF (congestive heart failure) Current Visit: Yes Status: Chronic Assessment and plan: Not in acute exacerbation. Continue oral Lasix, Zestril Qualifiers: Heart failure type: combined systolic and diastolic Heart failure chronicity: chronic Qualified Code(s): I50.42 - Chronic combined systolic ( congestive) and diastolic (congestive) heart failure (4) COPD (chronic obstructive pulmonary disease) Current Visit: Yes Status: Chronic Assessment and plan: Continue bronchodilators as needed. Not in acute exacerbation Qualifiers: COPD type: unspecified COPD Qualified Code(s): J44.9 - Chronic obstructive pulmonary disease, unspecified (5) Personal history of osteomyelitis Current Visit: Yes Status: Acute Assessment and plan: Prior history of vertebral osteomyelitis status post long course of antibiotics. Spine surgery consulted for evaluation. We will follow recommendations. (6) Hypokalemia Current Visit: Yes Status: Acute Assessment and plan: Potassium levels remain low. We will replete - Time Spent With Patient Total time spent is greater than 50% in coordination of care (as documented) at patient's floor/unit and/or counseling patient: - Subjective Interval history: Patient continues to have diarrhea. Abdominal discomfort improving. Denies any chest pain or palpitations. No hematemesis or melena. Denies any significant back pain at this time. No weakness in her lower extremities. No bowel or bladder incontinence. - Constitutional Vitals: Temp Pulse Resp BP Pulse Ox 98.0 F 60 16 102/56 97 01/19/18 11:14 01/19/18 11:14 01/19/18 11:14 01/19/18 11:14 01/19/18 11:14 General appearance: Present: A&O X 3, pleasant, no acute distress, obese - Neck Neck exam general surgery: Present: supple, trachea midline. Absent: lymphadenopathy - Respiratory Respiratory exam: Present: CTAB. Absent: accessory muscle use, rales, rhonchi, wheezes - Cardiovascular Cardiovascular exam: Present: RRR, +S1, +S2. Absent: diastolic murmur, gallop, rubs, systolic murmur - GI/Abdominal GI/Abdominal exam: Present: normal bowel sounds, soft, no peritoneal signs. Absent: distended, tenderness - Extremities Exam Extremities exam: Present: warm, radial pulses palpable and symmetrical. Absent : calf tenderness, cyanotic, pedal edema - Neurological Exam Neurological exam: Present: alert, oriented X3, no focal deficits. Absent: facial droop, speech deficit Internal Medicine: Result - Labs CBC & Chem 7: 01/19/18 05:33 01/19/18 05:33 Labs: Short CBC 01/19/18 Range/Units 05:33 WBC 7.6 (4.3-11.1) K/mcL Hgb 10.4 L (11.5-15.4) g/dL Hct 34.1 L (35.3-44.9) % Plt Count 314 (140-400) K/mcL Neutrophils # 4.6 (1.6-8.9) K/mcL BMP 01/19/18 05:33 Sodium 135 L Potassium 3.1 L Chloride 105 Carbon Dioxide 21 L BUN 13 Creatinine 0.90 Glucose 109 H Calcium 8.7 Consult Discharge Plan - Plan Referrals: Dominic Martins Jr, MD [Primary Care Provider] -
[2018-01-19] MEDS ORDERED: 0.9 % Sodium Chloride 1,000 ML IVC ONE ×2 (16:51→22:47)
[2018-01-19] MEDS: Potassium Chloride Elixir 20 MEQ/15 ML UDC PO SCH (17:02)
[2018-01-19] MEDS: Loratadine 10 MG TABLET PO SCH (17:03)
--- NOTE | 2018-01-19 17:05 | Event Note ---
Date of Encounter: 01/19/18 Time of Encounter: 17:04 Patient complaining of vision changes with black spots in her field of vision. Became hypotensive and tachycardic. Will give patient fluid bolus and reassess. If she continues to have symptoms of vision changes, will get CT scan of the head. Also check CBC and lactic acid levels.
[2018-01-19 18:10] LABS: Hematocrit 29.3 % (35.3-44.9); Lymphocytes # 1.5 K/mcL (0.6-4.6); Mean Corpuscular HGB Conc 30.7 g/dL (31.6-35.5); Mean Corpuscular Hemoglobin 23.9 pg (28.0-33.3); Mean Corpuscular Volume 77.9 fL (83.0-100.0); Mean Platelet Volume 10.6 fL (9.4-12.4); Platelet Count 323 K/mcL (140-400); Red Blood Count 3.76 M/mcL (3.82-4.97)
[2018-01-19] MEDS ORDERED: 0.9 % Sodium Chloride 500 ML IVC ONE (18:11)
[2018-01-19 18:27] LABS: Eosinophils # 0.3 K/mcL (0.0-0.6); Monocytes # 0.3 K/mcL (0.0-1.3); Neutrophils # 13.2 K/mcL (1.6-8.9); Platelet Estimate Normal (Normal)
[2018-01-19 18:28] LABS: Toxic Granulation Present (Not Present)
[2018-01-19] MEDS ORDERED: 0.9 % Sodium Chloride 1,000 ML ONE (22:38)
--- NOTE | 2018-01-19 22:52 | Event Note ---
Addendum entered and electronically signed by Rad House DO 01/19/18 22:53: Addendum: Hypotension now reflects fulminant (severe) C. difficile colitis as well as a leukocytosis of 15. Given these findings oral vancomycin increased to 250 mg QID as well as change from PO Flagyl to IV 500mg Q8H Original Note: <Rad House - Last Filed: 01/19/18 22:53> Date of Encounter: 01/19/18 Time of Encounter: 22:48 In brief, the patient is a 62-year-old female who was originally admitted to the floor for C. difficile colitis after a recent spinal procedure with prolonged antibiotic use with 8 days of diarrhea prior to presentation. She was initiated on oral vancomycin and oral Flagyl and had been doing well on the floor. It appears at around 5 PM she started having hypotension in the 60-70 systolic realm. Workup at that time included a head CT without acute findings, CBC with a leukocytosis of 15 as well as a normal lactate. From that time up to arrival in the intensive care unit the patient received a total of 2 L of IV fluids. She remained hypotensive and was brought to the intensive care unit given concerned she may require pressors. Patient seen and evaluated at time of arrival in the intensive care unit. She is alert answering questions appropriately and appears in no acute distress. She is mentating appropriately. She voices no concerns, no increased abdominal pain at this time. She is initially hypotensive here and slightly tachycardic at 110 with a paced rhythm on the monitor. Her exam reveals a soft nondistended abdomen without peritoneal features. She has peripheral pulses in all extremities. Her capillary refill is roughly 3 seconds in duration. At this time the current management will include an additional third liter of fluids as she is likely hypotensive secondary to hypovolemic shock in the setting of high output from her C. difficile colitis. We will hold on vasopressors at this time. We will also hold her antihypertensive and pulmonary hypertension medications including Lasix, lisinopril, sildenafil and Cardura. She will remain in the intensive care unit for close hemodynamic monitoring. <Ilir Chawla T - Last Filed: 01/20/18 01:37> Date of Encounter: 01/20/18 Agree with plan , patient is AAOX3. No acute abdomen findings
[2018-01-19] MEDS: MetroNIDAZOLE 500 MG/100 ML 500 MG/100 ML BAG IVPB SCH (23:56)
[2018-01-20] MEDS: Norepinephrine 4 MG in D5% in Water 250 ML IVC SCH ×2 (01:08→10:01)
[2018-01-20] MEDS: *HR* LORazepam 1 MG TABLET PO PRN ×2 (03:21→08:14)
[2018-01-20 04:50] LABS: Hematocrit 30.4 % (35.3-44.9); Hemoglobin 9.2 g/dL (11.5-15.4); Mean Corpuscular HGB Conc 30.3 g/dL (31.6-35.5); Mean Corpuscular Hemoglobin 23.8 pg (28.0-33.3); Mean Corpuscular Volume 78.8 fL (83.0-100.0); Mean Platelet Volume 10.7 fL (9.4-12.4); Nucleated Red Blood Cells 0.1 /100 WBC (0); Platelet Count 356 K/mcL (140-400); Red Blood Count 3.86 M/mcL (3.82-4.97); Red Cell Distribution Width 19.2 % (11.5-14.5)
[2018-01-20 05:14] LABS: Calcium 7.7 mg/dL (8.6-10.3); Eosinophils # 1.7 K/mcL (0.0-0.6); Lymphocytes # 4.3 K/mcL (0.6-4.6); Monocytes # 1.3 K/mcL (0.0-1.3); Neutrophils # 14.1 K/mcL (1.6-8.9); Platelet Estimate Normal (Normal); Potassium 3.2 mEq/L (3.5-5.1)
[2018-01-20] MEDS: *HR* Enoxaparin 40 MG/0.4 ML SYRINGE SQ SCH (06:08)
[2018-01-20] MEDS: Potassium Chloride Elixir 20 MEQ/15 ML UDC PO SCH (08:09)
[2018-01-20] MEDS: MetroNIDAZOLE 500 MG/100 ML 500 MG/100 ML BAG IVPB SCH ×2 (08:09→15:55)
[2018-01-20] MEDS: Sucralfate 1 GM TABLET PO SCH ×3 (08:10→20:38)
[2018-01-20] MEDS: Benzonatate 100 MG CAPSULE PO SCH ×3 (08:10→20:38)
[2018-01-20] MEDS: Vancomycin Oral Soln 250 MG/5 ML UDC PO SCH ×4 (08:10→20:39)
[2018-01-20] MEDS: Aspirin Enteric Coated 81 MG Tablet PO SCH (08:10)
[2018-01-20 08:19] LABS: Albumin 2.4 g/dL (3.5-5.7); Bilirubin,Direct 0.5 mg/dL (0.0-0.2); Bilirubin,Indirect 0.2 mg/dL (0.0-1.2); Bilirubin,Total 0.7 mg/dL (0.3-1.0); Globulin 2.3 g/dL (2.4-3.5); Total Protein 4.7 g/dL (6.4-8.9)
--- NOTE | 2018-01-20 08:45 | Pulmonology Consult Note ---
<Antione Mullins W - Last Filed: 01/20/18 09:39> Date of Encounter: 01/20/18 Medications and Allergies Albuterol Sulfate [Proventil Hfa] 2 puff IH Q4H PRN 09/27/15 [History] Aspirin Enteric Coated [Aspirin EC] 81 mg PO QAM 09/27/15 [History] Cetirizine HCl [Zyrtec] 10 mg PO QPM 09/27/15 [History] Clopidogrel [Plavix] 75 mg PO QAM 09/27/15 [History] Diclofenac Sodium [Voltaren] 50 mg PO TID 09/27/15 [History] Esomeprazole Magnesium [Nexium] 40 mg PO BID 09/27/15 [History] Fluticasone Propionate Nasal [Flonase] 50 mcg NS DAILY PRN 09/27/15 [History] Furosemide [Lasix] 20 mg PO QAM 09/27/15 [History] LORazepam [Ativan] 1 mg PO TID PRN 09/27/15 [History] Lisinopril [Zestril] 2.5 mg PO QAM 09/27/15 [History] Montelukast [Singulair] 10 mg PO QAM 09/27/15 [History] SUMAtriptan succinate [Imitrex] 50 mg PO AD PRN 09/27/15 [History] Sertraline [Zoloft] 100 mg PO QPM 09/27/15 [History] Sildenafil Citrate [Revatio] 20 mg PO TID 09/27/15 [History] Sucralfate [Carafate] 1 gm PO TID 09/27/15 [History] Doxazosin [Cardura] 1 mg PO HS 10/03/17 [History] Nortriptyline HCl 50 mg PO HS 10/03/17 [History] Cyclobenzaprine [Flexeril] 10 mg PO TID PRN tablet 11/05/17 [Rx] Rifampin [Rifadin] 300 mg PO BID 7 Days #14 capsule 11/05/17 [Rx] diazePAM [Valium] 5 mg PO Q8H PRN 10 Days #30 tablet 11/05/17 [Rx] Benzonatate [Benzonatate] 100 mg PO TID 01/18/18 [History] HYDROcodone/Acet 7.5/325 mg [Shoals 7.5-325 mg] 1 tab PO Q6H PRN 01/18/18 [ History] 3 Allergy/AdvReac Type Severity Reaction Status Date / Time codeine Allergy See Verified 01/18/18 18:26 Comments nitrofurantoin Allergy Hives Verified 01/18/18 18:26 [From Macrobid] Penicillins Allergy Hives Verified 01/18/18 18:26 sulfamethoxazole Allergy Hypotension Verified 01/18/18 18:26 [From Septra] Tetracycline Allergy Hives Verified 01/18/18 18:26 trimethoprim [From Septra] Allergy Hypotension Verified 01/18/18 18:26 phenylbutazone AdvReac See Verified 01/18/18 18:26 [From Butazolidin] Comments Sulfa (Sulfonamide AdvReac Hypotension Verified 01/18/18 18:26 Antibiotics) All Systems: The remainder of the systems were reviewed and are negative Physical Examination Vital Signs: Vital Signs, Last 4 Hours Temp Pulse Resp BP Pulse Ox 01/20/18 07:49 97.9 F 01/20/18 06:05 118 20 100/54 96 01/20/18 05:05 120 22 92/47 97 Results - Laboratory Findings CBC and BMP: 01/20/18 03:57 01/20/18 03:57 Abnormal lab findings: Abnormal lab results WBC 21.3 K/mcL (4.3-11.1) H 01/20/18 03:57 Hgb 9.2 g/dL (11.5-15.4) L 01/20/18 03:57 Hct 30.4 % (35.3-44.9) L 01/20/18 03:57 MCV 78.8 fL (83.0-100.0) L 01/20/18 03:57 MCH 23.8 pg (28.0-33.3) L 01/20/18 03:57 MCHC 30.3 g/dL (31.6-35.5) L 01/20/18 03:57 RDW 19.2 % (11.5-14.5) H 01/20/18 03:57 Band Neutrophils % 42.0 % (0-4) H 01/20/18 03:57 Neutrophils # 14.1 K/mcL (1.6-8.9) H 01/20/18 03:57 Eosinophils # 1.7 K/mcL (0.0-0.6) H 01/20/18 03:57 Nucleated RBCs/100 WBC 0.1 /100 WBC (0) H 01/20/18 03:57 Toxic Granulation Present (Not Present) A 01/19/18 17:52 ESR 55 mm/hr (0-15) H 01/18/18 16:43 Sodium 134 mEq/L (136-145) L 01/20/18 03:57 Potassium 3.2 mEq/L (3.5-5.1) L 01/20/18 03:57 Chloride 108 mEq/L (98-107) H 01/20/18 03:57 Carbon Dioxide 18 mEq/L (23-29) L 01/20/18 03:57 Creatinine 1.24 mg/dL (0.60-1.20) H 01/20/18 03:57 Est GFR ( Amer) 53 (> 60) L 01/20/18 03:57 Est GFR (Non-Af Amer) 44 (> 60) L 01/20/18 03:57 Glucose 140 mg/dL (70-105) H 01/20/18 03:57 POC Glucose 132 mg/dL (70-99) H 01/20/18 07:44 Calcium 7.7 mg/dL (8.6-10.3) L 01/20/18 03:57 Direct Bilirubin 0.5 mg/dL (0.0-0.2) H 01/20/18 03:57 AST 7 Units/L (13-39) L 01/20/18 03:57 Alkaline Phosphatase 129 Units/L (34-104) H 01/20/18 03:57 C-Reactive Protein 137 mg/L (Less than 10) H 01/18/18 16:43 Serum Total Protein 4.7 g/dL (6.4-8.9) L 01/20/18 03:57 Albumin 2.4 g/dL (3.5-5.7) L 01/20/18 03:57 Globulin 2.3 g/dL (2.4-3.5) L 01/20/18 03:57 Albumin/Globulin Ratio 1.0 (1.1-2.2) L 01/20/18 03:57 - Clinical Findings Intake & Output: Intake & Output 01/19/18 01/20/18 01/20/18 23:59 07:59 15:59 Intake Total 3240 / 3240 273.1 / 273.1 Output Total 300 / 300 500 / 500 Balance 2940 / 2940 273.1 / 273.1 -500 / -500 Weight 75.1 kg Consult Discharge Plan - Plan Referrals: Dominic Martins Jr, MD [Primary Care Provider] - - Attending Attestation I examined this patient and my medical decision-making was reviewed with the Resident Physician. I agree with the documented findings, disposition and treatment plan as described except to the extent set forth below. We independently had [id number] contact with the patient Patient seen and examined at bedside Labs, radiology, chart personally reviewed. Management was reviewed during multidisciplinary critical care rounds. 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 Pulm: The patient has stable oxygenation on room air. 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 She is being followed at [facility] for this I have elected to continue this medication given the possibility of rebound pulmonary hypertension with abrupt cessation Cards: The patient is hypotensive which I think is secondary to intravascular volume depletion and infection. Lactate encouragingly remains normal and there is no other evidence of end organ hypoperfusion. Further complicating this the patient has a history of systolic heart failure with increased filling pressures on the left side she also has a permanent pacemaker in place for prior history of a Mobitz type II heart block. 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 Outside hospital records will be obtained. She will be continued on norepinephrine for goal map around 60. I will also give a 500 mL challenge of colloid. Repeat echocardiogram now FEN-GI: Diet as tolerated she has evidence of colitis on CT of the abdomen Renal: Urine output monitored ID: Severe Clostridium difficile infection continue by mouth Vanco and IV Flagyl Heme/Onc: DVT prophylaxis given Endo: Glucose Monitored Integ/MSK: Skin Care per routine ICU Nursing Protocol to prevent ulcers. The patient has a history of recent treatment for discitis CT abdomen was notable for postsurgical changes and evidence of discitis/osteomyelitis I suspect that this is more residual chronic findings as opposed to an acute process nevertheless we will contact the patient's spine surgeon for up-to-date. Clinically this does not appear to be an active process Lines: All lines examined without evidence of infection : Dispo: Remain in ICU for vasopressor requirement CODE: Full <Kiran Ardon - Last Filed: 01/20/18 10:55> Date of Encounter: 01/20/18 Time of Encounter: 08:45 Assessment and Plan (1) C. difficile colitis Current Visit: Yes Status: Acute Patient presented with a previous history of diarrhea. 6 weeks of antibiotics recent treatment for cellulitis. - Patient was here for discitis and osteomyelitis; prolonged antibiotic course - Presented with 8 days of diarrhea, 4-5 episodes of watery nonbloody diarrhea - C. difficile testing is positive. CT abdomen and pelvis performed on 01/18/18 demonstrated the following: - Interval development of diffuse colonic wall thickening of the cecum, ascending colon, and transverse colon suggestive of long segment colitis, either infectious or inflammatory - No evidence for perforation or abscess formation Plan: - Flagyl 500 mg IV every 8 hours - Vancomycin oral solution 250 mg by mouth 4 times a day (2) CHF (congestive heart failure) Current Visit: Yes Status: Chronic Patient has a known history of congestive heart failure Echocardiogram on 10/31/17 demonstrated the following: - LVEF 45-50%. - Low normal to mildly reduced LV systolic function. - Indeterminate diastolic function. - Mildly dilated left ventricle. - Atypical septal motion. - Mild mitral regurgitation. - Mild-moderate tricuspid regurgitation. - Moderate-severe pulmonary hypertension. - There is a trivial pericardial effusion present. - Device lead visualized in the right atrium and right ventricle. Plan: - Continuous telemetry - Cardiac diet - Repeat echocardiogram - Obtain outside medical records Qualifiers: Heart failure type: combined systolic and diastolic Heart failure chronicity: chronic Qualified Code(s): I50.42 - Chronic combined systolic ( congestive) and diastolic (congestive) heart failure (3) Tachycardia Current Visit: Yes Status: Acute - Pacemaker went off on the morning of 01/20/18 - Patient complained of feeling a painful jolt - Order EKG, troponin, stat magnesium - 1 g of magnesium administered - We will consult cardiology for evaluation; pacemaker interrogation (4) Hypotension Current Visit: Yes Status: Acute - Patient became hypotensive on 01/19/18 - Patient was given fluid boluses - Currently on norepinephrine - Albumin 12.5 g in 250 mL IVC 250 mils per hour Qualifiers: Qualified Code(s): I95.9 - Hypotension, unspecified (5) Personal history of osteomyelitis Current Visit: Yes Status: Acute - Patient with recent diagnosis of back surgical wound infection and suspected discitis/OM - Abd CT showed L4-L5 discitis versus osteomyelitis. - Patient has completed 6 weeks course of antibiotics 01/17/18 - Orthopedics on board (6) COPD (chronic obstructive pulmonary disease) Current Visit: Yes Status: Chronic - Singulair 10 mg by mouth every afternoon - Tessalon 100 mg by mouth 3 times a day - Albuterol inhaler 2 puffs inhaled every 4 when necessary Qualifiers: COPD type: unspecified COPD Qualified Code(s): J44.9 - Chronic obstructive pulmonary disease, unspecified (7) Hypokalemia Current Visit: Yes Status: Acute - Possibly from GI loss from diarrhea and possibly use of diuretics at home - Continue to monitor History of Present Illness Consult date: 01/20/18 Chief complaint: Diarrhea History of present illness: Ms. Marcial is a 62-year-old female with past medical history of CHF, COPD, recurrent back surgeries who presented with chief complaint of diarrhea of 8 days duration. Patient recently completed a long course of antibiotic therapy post back surgery. History of osteomyelitis and discitis. Presented to the ER because her diarrhea was not resolved but [id number] medications. C. difficile tox was positive. Patient initially did not have an elevated white count; subsequently increased. Patient was started on vancomycin and Zosyn. Patient was initially admitted to the hospital floor without complication. However, patient began developing hypotension, with a systolic blood pressure ranging from the 60s and 70s. Workup at that time included a head CT without acute findings, CBC with a leukocytosis of 15, normal lactate. Patient was transferred to ICU. Received a total of 2 L of IV fluids. Patient was still hypotensive afterward; started on pressors. Was tachycardic at a heart rate of 110. Currently on norepinephrine. Patient is likely intravascularly depleted due to severe diarrhea; albumin has been started. Patient continues to have diarrhea. Abdominal discomfort improving. Denies chest pain, palpitations, hematemesis or melena. Past Med Surg Social Fam HX - Past Medical History Medical history: asthma, CHF, COPD, GERD, hypertension, myocardial infarction Psychiatric history: anxiety, panic disorder - Past Surgical History Surgical History: appendectomy, hysterectomy, orthopedic, other, pacemaker/AICD - Social History Smoking Status: Never smoker Smokeless Tobacco Status: No Alcohol use: none Drug use: none All Systems: The remainder of the systems were reviewed and are negative - Cardiovascular Cardiovascular: no chest pain, no chest pain with activity, no claudication, no dyspnea, no dyspnea on exertion - Respiratory Respiratory: no cough, no dyspnea, no hemoptysis - Gastrointestinal Gastrointestinal: diarrhea, loose stools, no cramping, no hematemesis, no hematochezia, no melena, no nausea, no vomiting - Genitourinary Genitourinary: no change in urinary stream, no difficulty urinating, no difficulty voiding Physical Examination Vital Signs: Vital Signs, Last 4 Hours Temp Pulse Resp BP Pulse Ox 01/20/18 07:49 97.9 F 01/20/18 06:05 118 20 100/54 96 01/20/18 05:05 120 22 92/47 97 General appearance: no acute distress Eyes: nonicteric ENT: oropharynx moist Neck: supple Effort: normal Inspection: normal Auscultation: bilateral: clear Percussion: bilateral: not dull Tactile fremitus: bilateral: normal Cardiovascular: regular rate and rhythm Gastrointestinal: normoactive bowel sounds, non-distended Integumentary: normal Extremities: no cyanosis, no edema, no clubbing Musculoskeletal: no deformities, ROM normal normal mental status, non-focal exam mood appropriate, affect normal Results - Laboratory Findings CBC and BMP: 01/20/18 03:57 01/20/18 03:57 Abnormal lab findings: Abnormal lab results WBC 21.3 K/mcL (4.3-11.1) H 01/20/18 03:57 Hgb 9.2 g/dL (11.5-15.4) L 01/20/18 03:57 Hct 30.4 % (35.3-44.9) L 01/20/18 03:57 MCV 78.8 fL (83.0-100.0) L 01/20/18 03:57 MCH 23.8 pg (28.0-33.3) L 01/20/18 03:57 MCHC 30.3 g/dL (31.6-35.5) L 01/20/18 03:57 RDW 19.2 % (11.5-14.5) H 01/20/18 03:57 Band Neutrophils % 42.0 % (0-4) H 01/20/18 03:57 Neutrophils # 14.1 K/mcL (1.6-8.9) H 01/20/18 03:57 Eosinophils # 1.7 K/mcL (0.0-0.6) H 01/20/18 03:57 Nucleated RBCs/100 WBC 0.1 /100 WBC (0) H 01/20/18 03:57 Toxic Granulation Present (Not Present) A 01/19/18 17:52 ESR 55 mm/hr (0-15) H 01/18/18 16:43 Sodium 134 mEq/L (136-145) L 01/20/18 03:57 Potassium 3.2 mEq/L (3.5-5.1) L 01/20/18 03:57 Chloride 108 mEq/L (98-107) H 01/20/18 03:57 Carbon Dioxide 18 mEq/L (23-29) L 01/20/18 03:57 Creatinine 1.24 mg/dL (0.60-1.20) H 01/20/18 03:57 Est GFR ( Amer) 53 (> 60) L 01/20/18 03:57 Est GFR (Non-Af Amer) 44 (> 60) L 01/20/18 03:57 Glucose 140 mg/dL (70-105) H 01/20/18 03:57 POC Glucose 132 mg/dL (70-99) H 01/20/18 07:44 Calcium 7.7 mg/dL (8.6-10.3) L 01/20/18 03:57 Direct Bilirubin 0.5 mg/dL (0.0-0.2) H 01/20/18 03:57 AST 7 Units/L (13-39) L 01/20/18 03:57 Alkaline Phosphatase 129 Units/L (34-104) H 01/20/18 03:57 C-Reactive Protein 137 mg/L (Less than 10) H 01/18/18 16:43 Serum Total Protein 4.7 g/dL (6.4-8.9) L 01/20/18 03:57 Albumin 2.4 g/dL (3.5-5.7) L 01/20/18 03:57 Globulin 2.3 g/dL (2.4-3.5) L 01/20/18 03:57 Albumin/Globulin Ratio 1.0 (1.1-2.2) L 01/20/18 03:57 - Clinical Findings Intake & Output: Intake & Output 01/19/18 01/20/18 01/20/18 23:59 07:59 15:59 Intake Total 3240 / 3240 273.1 / 273.1 Output Total 300 / 300 500 / 500 Balance 2940 / 2940 273.1 / 273.1 -500 / -500 Weight 75.1 kg
[2018-01-20] MEDS: Sildenafil Citrate 20 MG TABLET PO SCH ×3 (08:50→20:38)
--- NOTE | 2018-01-20 10:46 | Event Note ---
Date of Encounter: 01/20/18 Time of Encounter: 10:45 After rounds of present loaded by the nurse that the patient's ICD had fired causing shock. The rhythm on the telemetry. To be tachycardia with underlying left bundle morphology secondary to PPM. Patient denied chest pain prior to the event, checking electrolytes ECG and tropoin. I discussed the case personally with the cardiology service who will come to interrogate the patient' s device
[2018-01-20 11:12] LABS: Magnesium 0.9 mg/dL (1.6-2.6)
[2018-01-20 11:28] LABS: Troponin I 0.2 ng/mL (< 0.04)
--- NOTE | 2018-01-20 11:28 | Event Note ---
Date of Encounter: 01/20/18 Time of Encounter: 11:20 - Cardiology Event Note Device interrogation completed due to patient feeling shock sensation in her chest. Patient has medtronic pacemaker. No events seen. No therapies. Noted to have atrial tachycardia. Normal functioning device.
[2018-01-20] MEDS: Loratadine 10 MG TABLET PO SCH (17:56)
[2018-01-21] MEDS: MetroNIDAZOLE 500 MG/100 ML 500 MG/100 ML BAG IVPB SCH ×2 (00:27→08:07)
[2018-01-21] MEDS: *HR* LORazepam 1 MG TABLET PO PRN ×3 (02:39→21:02)
[2018-01-21 05:15] LABS: Hematocrit 28.4 % (35.3-44.9); Hemoglobin 8.7 g/dL (11.5-15.4); Lymphocytes # 2.3 K/mcL (0.6-4.6); Mean Corpuscular HGB Conc 30.6 g/dL (31.6-35.5); Mean Corpuscular Hemoglobin 23.7 pg (28.0-33.3); Mean Corpuscular Volume 77.4 fL (83.0-100.0); Mean Platelet Volume 10.7 fL (9.4-12.4); Platelet Count 346 K/mcL (140-400); Red Blood Count 3.67 M/mcL (3.82-4.97); Red Cell Distribution Width 19.4 % (11.5-14.5)
[2018-01-21 05:39] LABS: BUN/Creatinine Ratio 17 (6-26); Blood Urea Nitrogen 12 mg/dL (8-23); Calcium 8.3 mg/dL (8.6-10.3); Carbon Dioxide 17 mEq/L (23-29); Chloride 114 mEq/L (98-107); Glucose 95 mg/dL (70-105); Osmolality,Calculated 288 (280-300); Potassium 4.1 mEq/L (3.5-5.1); Sodium 139 mEq/L (136-145); eGFR For African Americans > 60 (> 60); eGFR For Non-African Americans > 60 (> 60)
[2018-01-21 05:45] LABS: Monocytes # 0.9 K/mcL (0.0-1.3); Neutrophils # 9.2 K/mcL (1.6-8.9); Platelet Estimate Normal (Normal); Reactive Lymphocytes Present (Not Present); Toxic Granulation Present (Not Present)
[2018-01-21] MEDS: *HR* Enoxaparin 40 MG/0.4 ML SYRINGE SQ SCH (05:49)
[2018-01-21 06:13] LABS: Magnesium 1.6 mg/dL (1.6-2.6)
[2018-01-21] MEDS: Vancomycin Oral Soln 250 MG/5 ML UDC PO SCH ×4 (08:07→20:54)
[2018-01-21] MEDS: Sucralfate 1 GM TABLET PO SCH ×3 (08:07→20:28)
[2018-01-21] MEDS: Potassium Chloride Elixir 20 MEQ/15 ML UDC PO SCH (08:07)
[2018-01-21] MEDS: Aspirin Enteric Coated 81 MG Tablet PO SCH (08:07)
[2018-01-21] MEDS: Sildenafil Citrate 20 MG TABLET PO SCH ×3 (08:07→20:28)
[2018-01-21] MEDS: Benzonatate 100 MG CAPSULE PO SCH ×3 (08:08→20:28)
--- NOTE | 2018-01-21 08:22 | Pulmonology Progress Note ---
<Maria Ines Edge M - Last Filed: 01/21/18 10:38> Date of Encounter: 01/21/18 Objective PUL Vital signs: Last Vital Signs Temp 98.4 F 01/21/18 07:52 Pulse 109 01/21/18 09:00 Resp 21 01/21/18 09:00 BP 137/80 01/21/18 09:00 Pulse Ox 97 01/21/18 09:00 Results - Laboratory Findings CBC and BMP: 01/21/18 04:51 01/21/18 04:51 Abnormal lab findings: Abnormal lab results WBC 14.4 K/mcL (4.3-11.1) H 01/21/18 04:51 RBC 3.67 M/mcL (3.82-4.97) L 01/21/18 04:51 Hgb 8.7 g/dL (11.5-15.4) L 01/21/18 04:51 Hct 28.4 % (35.3-44.9) L 01/21/18 04:51 MCV 77.4 fL (83.0-100.0) L 01/21/18 04:51 MCH 23.7 pg (28.0-33.3) L 01/21/18 04:51 MCHC 30.6 g/dL (31.6-35.5) L 01/21/18 04:51 RDW 19.4 % (11.5-14.5) H 01/21/18 04:51 Band Neutrophils % 16.0 % (0-4) H 01/21/18 04:51 Neutrophils # 9.2 K/mcL (1.6-8.9) H 01/21/18 04:51 Eosinophils # 2.0 K/mcL (0.0-0.6) H 01/21/18 04:51 Nucleated RBCs/100 WBC 0.1 /100 WBC (0) H 01/20/18 03:57 Reactive Lymphocytes Present (Not Present) A 01/21/18 04:51 Toxic Granulation Present (Not Present) A 01/21/18 04:51 ESR 55 mm/hr (0-15) H 01/18/18 16:43 Chloride 114 mEq/L (98-107) H 01/21/18 04:51 Carbon Dioxide 17 mEq/L (23-29) L 01/21/18 04:51 POC Glucose 132 mg/dL (70-99) H 01/20/18 07:44 Calcium 8.3 mg/dL (8.6-10.3) L 01/21/18 04:51 Direct Bilirubin 0.5 mg/dL (0.0-0.2) H 01/20/18 03:57 AST 7 Units/L (13-39) L 01/20/18 03:57 Alkaline Phosphatase 129 Units/L (34-104) H 01/20/18 03:57 Troponin I 0.20 ng/mL (< 0.04) H* 01/20/18 10:23 C-Reactive Protein 137 mg/L (Less than 10) H 01/18/18 16:43 Serum Total Protein 4.7 g/dL (6.4-8.9) L 01/20/18 03:57 Albumin 2.4 g/dL (3.5-5.7) L 01/20/18 03:57 Globulin 2.3 g/dL (2.4-3.5) L 01/20/18 03:57 Albumin/Globulin Ratio 1.0 (1.1-2.2) L 01/20/18 03:57 - Clinical Findings Intake & Output: Intake & Output 01/20/18 01/21/18 01/21/18 23:59 07:59 15:59 Intake Total 549 / 549 100 / 100 Output Total 400 / 400 Balance 549 / 549 -300 / -300 Weight 75.7 kg Consult Discharge Plan - Plan Referrals: Dominic Martins Jr, MD [Primary Care Provider] - - Attending Attestation I examined this patient and my medical decision-making was reviewed with the Resident Physician. I agree with the documented findings, disposition and treatment plan as described except to the extent set forth below. Patient seen and examined. Labs, radiology, chart personally reviewed. 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 Patient has PAH and she follows up at [facility]. Contnue her Revatio Cardiovascular: stable. She will need her Lasix.to be resumed in next 24 hours if BP remain stable. GI: Nutrition per dietary and GI prophylaxis per routine Heme: DVT prophylaxis per routine ID: Continue antibiotics and plan to de-escalation Renal; urine out put and renal funtion reviewed Endorcine: blood glucose is monitored Lines: all lines checked and no evidence of infections Skin: skin care to prevent pressure ulcers per nursing routine care Patient is stable to be transferred to floor. <Kiran Ardon - Last Filed: 01/21/18 11:37> Date of Encounter: 01/21/18 Time of Encounter: 09:30 Assessment and Plan (1) C. difficile colitis Current Visit: Yes Status: Acute Patient presented with a previous history of diarrhea. 6 weeks of antibiotics recent treatment for cellulitis. - Patient was here for discitis and osteomyelitis; prolonged antibiotic course - Presented with 8 days of diarrhea, 4-5 episodes of watery nonbloody diarrhea - C. difficile testing is positive. CT abdomen and pelvis performed on 01/18/18 demonstrated the following: - Interval development of diffuse colonic wall thickening of the cecum, ascending colon, and transverse colon suggestive of long segment colitis, either infectious or inflammatory - No evidence for perforation or abscess formation Plan: - Flagyl has been discontinued - Vancomycin oral solution 125 mg by mouth 4 times a day (2) CHF (congestive heart failure) Current Visit: Yes Status: Chronic Patient has a known history of congestive heart failure Echocardiogram on 10/31/17 demonstrated the following: - LVEF 45-50%. - Low normal to mildly reduced LV systolic function. - Indeterminate diastolic function. - Mildly dilated left ventricle. - Atypical septal motion. - Mild mitral regurgitation. - Mild-moderate tricuspid regurgitation. - Moderate-severe pulmonary hypertension. - There is a trivial pericardial effusion present. - Device lead visualized in the right atrium and right ventricle. Plan: - Continuous telemetry - Cardiac diet - Obtain outside medical records Qualifiers: Heart failure type: combined systolic and diastolic Heart failure chronicity: chronic Qualified Code(s): I50.42 - Chronic combined systolic ( congestive) and diastolic (congestive) heart failure (3) Tachycardia Current Visit: Yes Status: Acute Continuous telemetry (4) Personal history of osteomyelitis Current Visit: Yes Status: Acute - Patient with recent diagnosis of back surgical wound infection and suspected discitis/OM - Abd CT showed L4-L5 discitis versus osteomyelitis. - Patient has completed 6 weeks course of antibiotics 01/17/18 - Orthopedics on board (5) COPD (chronic obstructive pulmonary disease) Current Visit: Yes Status: Chronic - Singulair 10 mg by mouth every afternoon - Tessalon 100 mg by mouth 3 times a day - Albuterol inhaler 2 puffs inhaled every 4 when necessary Qualifiers: COPD type: unspecified COPD Qualified Code(s): J44.9 - Chronic obstructive pulmonary disease, unspecified (6) Hypokalemia Current Visit: Yes Status: Acute - Possibly from GI loss from diarrhea and possibly use of diuretics at home - Continue to monitor Subjective Principal diagnosis: C Diff Interval history: Patient was seen and examined at bedside this morning. Patient states that she has had intermittent bouts of diarrhea. Denies having any nausea, vomiting, or abdominal pain. We will discontinue Flagyl today. Vancomycin will be reduced to 125 mg 4 times a day. Patient will complete a 10-14 day course. Plan is to transfer patient to the floor. Will need continuous telemetry. Hypotension has resolved. Objective PUL Vital signs: Last Vital Signs Temp 98.4 F 01/21/18 07:52 Pulse 107 01/21/18 07:56 Resp 17 01/21/18 07:52 BP 152/81 01/21/18 07:52 Pulse Ox 97 01/21/18 07:52 General appearance: no acute distress Eyes: nonicteric ENT: oropharynx moist Neck: supple Effort: normal Auscultation: bilateral: clear Percussion: bilateral: not dull Tactile fremitus: bilateral: normal Cardiovascular: regular rate and rhythm Gastrointestinal: normoactive bowel sounds, non-distended Integumentary: normal Extremities: no cyanosis, no edema, no clubbing Musculoskeletal: no deformities, ROM normal normal mental status, non-focal exam mood appropriate, affect normal Results - Laboratory Findings CBC and BMP: 01/21/18 04:51 01/21/18 04:51 Abnormal lab findings: Abnormal lab results WBC 14.4 K/mcL (4.3-11.1) H 01/21/18 04:51 RBC 3.67 M/mcL (3.82-4.97) L 01/21/18 04:51 Hgb 8.7 g/dL (11.5-15.4) L 01/21/18 04:51 Hct 28.4 % (35.3-44.9) L 01/21/18 04:51 MCV 77.4 fL (83.0-100.0) L 01/21/18 04:51 MCH 23.7 pg (28.0-33.3) L 01/21/18 04:51 MCHC 30.6 g/dL (31.6-35.5) L 01/21/18 04:51 RDW 19.4 % (11.5-14.5) H 01/21/18 04:51 Band Neutrophils % 16.0 % (0-4) H 01/21/18 04:51 Neutrophils # 9.2 K/mcL (1.6-8.9) H 01/21/18 04:51 Eosinophils # 2.0 K/mcL (0.0-0.6) H 01/21/18 04:51 Nucleated RBCs/100 WBC 0.1 /100 WBC (0) H 01/20/18 03:57 Reactive Lymphocytes Present (Not Present) A 01/21/18 04:51 Toxic Granulation Present (Not Present) A 01/21/18 04:51 ESR 55 mm/hr (0-15) H 01/18/18 16:43 Chloride 114 mEq/L (98-107) H 01/21/18 04:51 Carbon Dioxide 17 mEq/L (23-29) L 01/21/18 04:51 POC Glucose 132 mg/dL (70-99) H 01/20/18 07:44 Calcium 8.3 mg/dL (8.6-10.3) L 01/21/18 04:51 Direct Bilirubin 0.5 mg/dL (0.0-0.2) H 01/20/18 03:57 AST 7 Units/L (13-39) L 01/20/18 03:57 Alkaline Phosphatase 129 Units/L (34-104) H 01/20/18 03:57 Troponin I 0.20 ng/mL (< 0.04) H* 01/20/18 10:23 C-Reactive Protein 137 mg/L (Less than 10) H 01/18/18 16:43 Serum Total Protein 4.7 g/dL (6.4-8.9) L 01/20/18 03:57 Albumin 2.4 g/dL (3.5-5.7) L 01/20/18 03:57 Globulin 2.3 g/dL (2.4-3.5) L 01/20/18 03:57 Albumin/Globulin Ratio 1.0 (1.1-2.2) L 01/20/18 03:57 - Clinical Findings Intake & Output: Intake & Output 01/20/18 01/21/18 01/21/18 23:59 07:59 15:59 Intake Total 549 / 549 100 / 100 Output Total 400 / 400 Balance 549 / 549 -300 / -300 Weight 75.7 kg
[2018-01-21] MEDS ORDERED: *HR* Alteplase (Cathflo) 2 MG VIAL IVP ONE (10:48)
[2018-01-21] MEDS: Loratadine 10 MG TABLET PO SCH (17:52)
[2018-01-21] MEDS: Norepinephrine 4 MG in D5% in Water 250 ML IVC SCH (20:30)
[2018-01-21] MEDS: *HR* HYDROcodone/Acet 7.5/325 mg TABLET PO PRN (23:20)
[2018-01-22] MEDS ORDERED: OXYCODONE Oral CONC 10 MG/0.5 ML ORAL.SYG SL ONE (01:51)
[2018-01-22] MEDS: *HR* Enoxaparin 40 MG/0.4 ML SYRINGE SQ SCH (06:02)
--- NOTE | 2018-01-22 06:02 | Electrocardiograph Report ---
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
[2018-01-22] MEDS: Potassium Chloride Elixir 20 MEQ/15 ML UDC PO SCH (09:24)
[2018-01-22] MEDS: Vancomycin Oral Soln 250 MG/5 ML UDC PO SCH ×4 (09:24→20:38)
[2018-01-22] MEDS: Sucralfate 1 GM TABLET PO SCH ×3 (09:25→20:37)
[2018-01-22] MEDS: Benzonatate 100 MG CAPSULE PO SCH ×3 (09:25→20:37)
[2018-01-22] MEDS: Aspirin Enteric Coated 81 MG Tablet PO SCH (09:25)
[2018-01-22] MEDS: Sildenafil Citrate 20 MG TABLET PO SCH ×3 (09:25→20:37)
[2018-01-22 10:12] LABS: Basophils % 0.3 %; Eosinophils # 0.4 K/mcL (0.0-0.6); Hematocrit 34.5 % (35.3-44.9); Immature Granulocytes % 1.6 % (0-4); Lymphocytes # 2.2 K/mcL (0.6-4.6); Lymphocytes % 16.8 %; Mean Corpuscular HGB Conc 30.1 g/dL (31.6-35.5); Mean Corpuscular Hemoglobin 23.9 pg (28.0-33.3); Mean Corpuscular Volume 79.3 fL (83.0-100.0); Mean Platelet Volume 10.2 fL (9.4-12.4); Monocytes # 0.6 K/mcL (0.0-1.3); Monocytes % 4.6 %; Neutrophils # 9.7 K/mcL (1.6-8.9); Platelet Count 461 K/mcL (140-400); Red Blood Count 4.35 M/mcL (3.82-4.97); Red Cell Distribution Width 20.1 % (11.5-14.5); Segmented Neutrophils % 73.7 %
--- NOTE | 2018-01-22 10:16 | Internal Med Progress Note ---
Date of Encounter: 01/22/18 Time of Encounter: 10:13 - Assessment and plan (1) C. difficile colitis Current Visit: Yes Status: Acute Assessment and plan: Stools have improved only 3 loose stools today Continue oral vancomycin. Tolerating oral intake Monitor electrolytes replace as needed Monitor intake output (2) HTN (hypertension) Current Visit: Yes Status: Chronic Assessment and plan: Blood pressure controlled at this time. Continue present medications Qualifiers: Hypertension type: essential hypertension Qualified Code(s): I10 - Essential (primary) hypertension (3) CHF (congestive heart failure) Current Visit: Yes Status: Chronic Assessment and plan: Not in acute exacerbation. Continue oral Lasix, Zestril Monitor intake output daily weights Low-sodium diet Echocardiogram on 10/31/17 demonstrated the following: - LVEF 45-50%. - Low normal to mildly reduced LV systolic function. - Indeterminate diastolic function. - Mildly dilated left ventricle. - Atypical septal motion. - Mild mitral regurgitation. - Mild-moderate tricuspid regurgitation. - Moderate-severe pulmonary hypertension. - There is a trivial pericardial effusion present. - Device lead visualized in the right atrium and right ventricle. Qualifiers: Heart failure type: combined systolic and diastolic Heart failure chronicity: chronic Qualified Code(s): I50.42 - Chronic combined systolic ( congestive) and diastolic (congestive) heart failure (4) COPD (chronic obstructive pulmonary disease) Current Visit: Yes Status: Chronic Assessment and plan: Does not appear to be an exacerbation Continue bronchodilators as needed. Oxygen as needed Continue with Yesi Gutierrez Qualifiers: COPD type: unspecified COPD Qualified Code(s): J44.9 - Chronic obstructive pulmonary disease, unspecified (5) Personal history of osteomyelitis Current Visit: Yes Status: Acute Assessment and plan: Recent diagnosis of vertebral osteomyelitis abdominal CT showed L4-L5 discitis versus osteomyelitis she completed a 6 week course of antibiotics for Orthopedics has been consulted appreciate recommendations (6) Hypokalemia Current Visit: Yes Status: Acute Assessment and plan: Potassium stable today 5.1 we will continue to monitor replace as needed (7) Tachycardia Current Visit: Yes Status: Acute Assessment and plan: We will check EKG order urinalysis, CXR check for other infectious process check Mag Troponin - Time Spent With Patient Total time spent is greater than 50% in coordination of care (as documented) at patient's floor/unit and/or counseling patient: - Subjective Interval history: This patient is new to me I did review the patients record. Presently denies any pain or discomfort. Stools have improved 3 loose stools this am. Tolerating oral intake - Constitutional Vitals: Temp Pulse Resp BP Pulse Ox 97.9 F 128 17 174/75 100 01/22/18 07:21 01/22/18 07:21 01/22/18 07:21 01/22/18 07:21 01/22/18 07:21 General appearance: Present: A&O X 3, pleasant, no acute distress, obese - Head Head exam: Present: atraumatic, normocephalic - Eye Eye exam: Present: PERRL, conjuntiva pink, sclera anicteric Pupils: Present: PERRL - Neck Neck exam general surgery: Present: supple, trachea midline. Absent: lymphadenopathy - Respiratory Respiratory exam: Present: CTAB. Absent: accessory muscle use, rales, rhonchi, wheezes - Cardiovascular Cardiovascular exam: Present: RRR, +S1, +S2. Absent: diastolic murmur, gallop, rubs, systolic murmur - GI/Abdominal GI/Abdominal exam: Present: normal bowel sounds, soft, no peritoneal signs. Absent: distended, tenderness - Extremities Exam Extremities exam: Present: warm, radial pulses palpable and symmetrical. Absent : calf tenderness, cyanotic, pedal edema - Neurological Exam Neurological exam: Present: CN II-XII intact, oriented X3, no focal deficits. Absent: pronater drift, facial droop, speech deficit Internal Medicine: Result - Labs CBC & Chem 7: 01/22/18 09:49 01/22/18 09:49 Consult Discharge Plan - Plan Referrals: Dominic Martins Jr, MD [Primary Care Provider] -
[2018-01-22 10:29] LABS: BUN/Creatinine Ratio 14 (6-26); Blood Urea Nitrogen 10 mg/dL (8-23); Calcium 9.1 mg/dL (8.6-10.3); Carbon Dioxide 20 mEq/L (23-29); Chloride 115 mEq/L (98-107); Glucose 136 mg/dL (70-105); Osmolality,Calculated 291 (280-300); Potassium 5.1 mEq/L (3.5-5.1); Sodium 140 mEq/L (136-145); eGFR For African Americans > 60 (> 60); eGFR For Non-African Americans > 60 (> 60)
[2018-01-22 10:54] LABS: Hemoglobin 10.4 g/dL (11.5-15.4)
[2018-01-22] MEDS: *HR* LORazepam 1 MG TABLET PO PRN (11:02)
[2018-01-22 16:39] LABS: Magnesium 1.4 mg/dL (1.6-2.6)
[2018-01-22 16:46] LABS: Troponin I 0.09 ng/mL (< 0.04)
[2018-01-22 17:32] LABS: ABG Base Excess -8 mEq/L (-2 to 3); ABG HCO3 17 mEq/L (21-27); ABG Oxygen Saturation 100 % (95-98); ABG PCO2 32 mmHg (35-45); ABG PH 7.33 pH Units (7.32-7.45); ABG PO2 404 mmHg (85-104); ABG TCO2 18 mEq/L (20-26)
[2018-01-22] MEDS ORDERED: Isovue-370 500 ML INFUS..BTL IV ONE (17:43)
[2018-01-22 17:56] LABS: Bilirubin,Urine Negative (Negative); Blood,Urine Negative (Negative); Color,Urine Yellow (Yellow); Glucose,Urine (UA) Normal (Normal); Ketones,Urine Negative (Negative); Leukocyte Esterase,Urine Small (Negative); Nitrite,Urine Negative (Negative); Protein,Urine 30 mg/dL (Neg-Trace); Urobilinogen,Urine Normal (Normal)
[2018-01-22 17:58] LABS: Squamous Epithelial Cell,Urine Many per lpf (None-Few)
[2018-01-22 18:06] LABS: Clarity,Urine Slightly Cloudy (Clear)
[2018-01-22 18:10] LABS: Basophils # 0.1 K/mcL (0.0-0.2); Basophils % 0.5 %; Eosinophils # 0.2 K/mcL (0.0-0.6); Eosinophils % 1.6 %; Hemoglobin 9.8 g/dL (11.5-15.4); Immature Granulocytes % 1.9 % (0-4); Lymphocytes # 2.3 K/mcL (0.6-4.6); Lymphocytes % 21.7 %; Mean Corpuscular HGB Conc 30.6 g/dL (31.6-35.5); Mean Corpuscular Hemoglobin 23.9 pg (28.0-33.3); Monocytes # 0.7 K/mcL (0.0-1.3); Monocytes % 6.4 %; Neutrophils # 7.2 K/mcL (1.6-8.9); Platelet Count 451 K/mcL (140-400); Red Cell Distribution Width 19.9 % (11.5-14.5); Segmented Neutrophils % 67.9 %
--- NOTE | 2018-01-22 18:15 | Event Note ---
Date of Encounter: 01/22/18 Time of Encounter: 18:06 Called to patient's bedside per nursing staff. Patient was up to the bedside commode when she became cyanotic experiencing chest pain and difficulty breathing. Finger pulse ox did show S PO2 of 77%. Placed on nonrebreather sats improved to 100% EKG was obtained which did show paced rhythm. Stat labs were drawn. Stat ABG was drawn. Ordered stat CTA to rule out possible PE. I did notify Dr. Cheng updated on patient's condition and results of lab work. He did see patient at the bedside advised to continue with CTA as ordered , as well as order Xopenex beta manuel and Solu-Medrol. Troponin 0.09 which is down from previous troponin collected 01/20/18 of 0.20 I did speak with Dr[address] Sarkar of cardiology concerning the episode an elevation in troponin. He will see patient upon consult Family was at bedside and updated on plan. Verbalized understanding.
[2018-01-22 18:20] LABS: Hyaline Casts,Urine Few per lpf (None-Few)
[2018-01-22 18:21] LABS: Bacteria,Urine Moderate per hpf (None-Few)
[2018-01-22 18:27] LABS: BUN/Creatinine Ratio 16 (6-26); Blood Urea Nitrogen 11 mg/dL (8-23); Calcium 8.7 mg/dL (8.6-10.3); Carbon Dioxide 18 mEq/L (23-29); Chloride 114 mEq/L (98-107); Glucose 117 mg/dL (70-105); Magnesium 1.5 mg/dL (1.6-2.6); Osmolality,Calculated 288 (280-300); Potassium 4.6 mEq/L (3.5-5.1); Sodium 139 mEq/L (136-145); eGFR For African Americans > 60 (> 60); eGFR For Non-African Americans > 60 (> 60)
[2018-01-22] MEDS: Levalbuterol Neb 1.25 MG/3 ML IH SCH ×2 (18:39→22:31)
[2018-01-22] MEDS: Loratadine 10 MG TABLET PO SCH (18:42)
--- NOTE | 2018-01-22 21:47 | Event Note ---
Date of Encounter: 01/22/18 Time of Encounter: 21:05 Alerted by patient's nurse come see patient due to difficulty in breathing. Nurse stated patient's O2 saturation 100% on O2. Nasal cannula but had multiple episodes of lips turning blue with exertion. Patient released from ICU today and had difficulty transitioning to 3B floor d/t SOB/TITI. Patient also reporting chest pain. EKG ordered and stat troponin. CTA of chest negative for pulmonary embolism. Went to see patient who was using accessory breathing and difficult to arouse. Ordered BiPAP which patient could not tolerate, so nasal cannula converted to oxygen mask which improved patient's mentation and breathing status. Nurse ordered to monitor vital signs every 30 minutes 4. On exam, pts. let thigh is bleeding from administration of Lovenox reportedly given in thigh. Pressure bandage applied. PTT/INR ordered. Pt. to be monitored closely w/orders to notify me of any adverse changes.
[2018-01-22] MEDS ORDERED: Levalbuterol Neb 1.25 MG/3 ML ONE (21:58)
[2018-01-22 22:15] LABS: INR 2.2; Prothrombin Time 23.9 Seconds (9.4-12.1)
[2018-01-22 22:17] LABS: Activated Partial Thrombo Time 39.8 Seconds (26.0-36.0)
[2018-01-23] MEDS: methylPREDNISolone 125 MG/2 ML VIAL IVP SCH ×3 (00:40→15:48)
[2018-01-23] MEDS: *HR* LORazepam 1 MG TABLET PO PRN ×2 (03:32→20:22)
[2018-01-23] MEDS: Levalbuterol Neb 1.25 MG/3 ML IH SCH ×3 (03:39→16:19)
[2018-01-23] MEDS: *HR* Enoxaparin 40 MG/0.4 ML SYRINGE SQ SCH (05:56)
[2018-01-23 06:31] LABS: Basophils # 0.1 K/mcL (0.0-0.2); Basophils % 0.7 %; Eosinophils % 0.1 %; Hematocrit 31.8 % (35.3-44.9); Hemoglobin 9.6 g/dL (11.5-15.4); Immature Granulocytes % 3.5 % (0-4); Lymphocytes # 1.4 K/mcL (0.6-4.6); Lymphocytes % 13.8 %; Mean Corpuscular HGB Conc 30.2 g/dL (31.6-35.5); Mean Corpuscular Hemoglobin 23.6 pg (28.0-33.3); Mean Corpuscular Volume 78.3 fL (83.0-100.0); Mean Platelet Volume 10.2 fL (9.4-12.4); Monocytes # 0.2 K/mcL (0.0-1.3); Monocytes % 1.9 %; Neutrophils # 8.2 K/mcL (1.6-8.9); Nucleated Red Blood Cells 0.2 /100 WBC (0); Platelet Count 508 K/mcL (140-400); Red Blood Count 4.06 M/mcL (3.82-4.97)
[2018-01-23 07:18] LABS: Blood Urea Nitrogen 10 mg/dL (8-23); Carbon Dioxide 18 mEq/L (23-29); Chloride 111 mEq/L (98-107); Potassium 4.8 mEq/L (3.5-5.1); Sodium 138 mEq/L (136-145)
[2018-01-23 07:19] LABS: Calcium 8.7 mg/dL (8.6-10.3); Glucose 167 mg/dL (70-105); Osmolality,Calculated 289 (280-300)
[2018-01-23 07:41] LABS: BUN/Creatinine Ratio 16 (6-26); eGFR For African Americans > 60 (> 60); eGFR For Non-African Americans > 60 (> 60)
[2018-01-23] MEDS ORDERED: Furosemide 20 MG/2 ML VIAL IVP ONE (07:42)
--- NOTE | 2018-01-23 08:00 | Internal Med Progress Note ---
Date of Encounter: 01/23/18 Time of Encounter: 07:57 - Assessment and plan (1) C. difficile colitis Current Visit: Yes Status: Acute Assessment and plan: Stools have improved Continue oral vancomycin day 2 of 10 days . Tolerating oral intake Monitor electrolytes replace as needed Monitor intake output (2) HTN (hypertension) Current Visit: Yes Status: Chronic Assessment and plan: Blood pressure controlled at this time. Continue present medications Qualifiers: Hypertension type: essential hypertension Qualified Code(s): I10 - Essential (primary) hypertension (3) CHF (congestive heart failure) Current Visit: Yes Status: Chronic Assessment and plan: Given IV Lasix 1 we will continue with oral Lasix Monitor intake output daily weights Low-sodium diet Echocardiogram on 10/31/17 demonstrated the following: - LVEF 45-50%. - Low normal to mildly reduced LV systolic function. - Indeterminate diastolic function. - Mildly dilated left ventricle. - Atypical septal motion. - Mild mitral regurgitation. - Mild-moderate tricuspid regurgitation. - Moderate-severe pulmonary hypertension. - There is a trivial pericardial effusion present. - Device lead visualized in the right atrium and right ventricle. Qualifiers: Heart failure type: combined systolic and diastolic Heart failure chronicity: chronic Qualified Code(s): I50.42 - Chronic combined systolic ( congestive) and diastolic (congestive) heart failure (4) COPD (chronic obstructive pulmonary disease) Current Visit: Yes Status: Chronic Assessment and plan: Solu medrol IV Xopenex due to tachycardia. Oxygen as needed Continue with Yesi Gutierrez Qualifiers: COPD type: unspecified COPD Qualified Code(s): J44.9 - Chronic obstructive pulmonary disease, unspecified (5) Personal history of osteomyelitis Current Visit: Yes Status: Acute Assessment and plan: Recent diagnosis of vertebral osteomyelitis abdominal CT showed L4-L5 discitis versus osteomyelitis she completed a 6 week course of antibiotics for Orthopedics has been consulted appreciate recommendations (6) Hypokalemia Current Visit: Yes Status: Acute Assessment and plan: Potassium stable today we will continue to monitor replace as needed (7) Tachycardia Current Visit: Yes Status: Acute Assessment and plan: EKG with paced rhythm Magnesium replaced we will continue to monitor Troponin -0.07 cardiology has been consulted Metoprolol 12.5 twice a day Continuous cardiac monitoring (8) DVT prophylaxis Current Visit: Yes Status: Acute Assessment and plan: Lovenox subcutaneous - Time Spent With Patient Total time spent is greater than 50% in coordination of care (as documented) at patient's floor/unit and/or counseling patient: - Subjective Interval history: Continue to have tachycardia denies any CP at this time has SOB on exertion and orthopnea. Stool improving more formed less frequent. Cardiology has been consulted awaiting recommendations - Constitutional Vitals: Temp Pulse Resp BP Pulse Ox 97.5 F L 126 20 126/85 99 01/23/18 06:53 01/23/18 06:53 01/23/18 06:53 01/23/18 06:53 01/23/18 06:53 General appearance: Present: A&O X 3, pleasant, no acute distress, obese - Head Head exam: Present: atraumatic, normocephalic - Eye Eye exam: Present: PERRL, conjuntiva pink, sclera anicteric Pupils: Present: PERRL - Neck Neck exam general surgery: Present: supple, trachea midline. Absent: lymphadenopathy - Respiratory Respiratory exam: Present: CTAB. Absent: accessory muscle use, rales, rhonchi, wheezes - Cardiovascular Cardiovascular exam: Present: RRR, +S1, +S2, tachycardia. Absent: diastolic murmur, gallop, rubs, systolic murmur - GI/Abdominal GI/Abdominal exam: Present: normal bowel sounds, soft, no peritoneal signs. Absent: distended, tenderness - Extremities Exam Extremities exam: Present: warm, radial pulses palpable and symmetrical. Absent : calf tenderness, cyanotic, pedal edema - Neurological Exam Neurological exam: Present: CN II-XII intact, oriented X3, no focal deficits. Absent: pronater drift, facial droop, speech deficit - Skin Skin exam: Present: dry, intact Internal Medicine: Result - Labs CBC & Chem 7: 01/23/18 05:54 01/23/18 05:54 Labs: Short CBC 01/22/18 01/22/18 01/23/18 Range/Units 09:49 17:55 05:54 WBC 13.1 H 10.6 10.3 (4.3-11.1) K/mcL Hgb 10.4 L D 9.8 L 9.6 L (11.5-15.4) g/dL Hct 34.5 L 32.0 L 31.8 L (35.3-44.9) % Plt Count 461 H 451 H 508 H (140-400) K/mcL Neutrophils # 9.7 H 7.2 8.2 (1.6-8.9) K/mcL BMP 01/22/18 01/22/18 01/23/18 09:49 17:55 05:54 Sodium 140 139 138 Potassium 5.1 4.6 4.8 Chloride 115 H 114 H 111 H Carbon Dioxide 20 L 18 L 18 L BUN 10 11 10 Creatinine 0.69 0.68 0.64 Glucose 136 H 117 H 167 H Calcium 9.1 8.7 8.7 Cardiac Enzymes 01/22/18 01/22/18 Range/Units 16:08 21:45 Troponin I 0.09 H* 0.07 H* (< 0.04) ng/mL Urine 01/22/18 Range/Units 17:42 Urine Color Yellow (Yellow) Urine Clarity Slightly Cloudy A (Clear) Urine pH 6.0 (5.0-8.0) pH Units Ur Specific [place] 1.020 (1.010-1.025) Urine Protein 30 H (Neg-Trace) mg/dL Urine Glucose (UA) Normal (Normal) mg/dL - ABG Interpretation ABG results: ABG ABG pH 7.33 pH Units (7.32-7.45) 01/22/18 17:28 ABG pCO2 32 mmHg (35-45) L 01/22/18 17:28 ABG pO2 404 mmHg (85-104) H 01/22/18 17:28 ABG O2 Saturation 100 % (95-98) H 01/22/18 17:28 PT/INR, D-dimer PT 23.9 Seconds (9.4-12.1) H 01/22/18 21:45 - Impressions Impressions Chest X-Ray 01/22/18 15:57 IMPRESSION: Increase in the perihilar markings suggesting either early interstitial pulmonary edema or infiltrate. D/ / Nando Beasley MD / Nando Beasley MD Interpreting Provider: Nando Beasley MD Chest CTA 01/22/18 17:43 IMPRESSION: 1. No CT evidence for acute pulmonary artery embolism. 2. Irregular air patchy areas increased density in the right upper, middle and lower lobes and left lower lobe, including irregular nodular density in the right lung apex. Findings may reflect multifocal infectious/inflammatory etiologies and/or true lung nodules. Short-term follow-up imaging (3 months) is recommended to ensure resolution. 3. Small bilateral pleural effusions. 4. Reflux of contrast in the IVC and hepatic venous system can reflect a degree of heart failure. Clinical correlation is recommended. 5. Prominent mediastinal lymph nodes measuring up to 9 mm in short axis dimension are likely reactive. Attention on follow-up imaging is recommended. D/ / Solomon Thakkar / Solomon Thakkar Interpreting Provider: Solomon Thakkar Consult Discharge Plan - Plan Referrals: Dominic Martins Jr, MD [Primary Care Provider] - 02/01/18 2:30 pm
[2018-01-23] MEDS: Vancomycin Oral Soln 250 MG/5 ML UDC PO SCH ×4 (08:37→20:24)
[2018-01-23] MEDS: Sildenafil Citrate 20 MG TABLET PO SCH ×3 (08:38→20:23)
[2018-01-23] MEDS: Benzonatate 100 MG CAPSULE PO SCH ×3 (08:38→20:23)
[2018-01-23] MEDS: Aspirin Enteric Coated 81 MG Tablet PO SCH (08:39)
[2018-01-23] MEDS: Sucralfate 1 GM TABLET PO SCH ×3 (08:39→20:22)
--- NOTE | 2018-01-23 12:19 | Event Note ---
Date of Encounter: 01/23/18 Time of Encounter: 12:15 - Cardiology Event Note Cardiology consulted today for elevated troponin and possible ICD shock. Patient initially admitted to ICU for sepsis, diarrhea from c-diff, and electrolyte imbalances. Patient c/o her device shocking her on 01/20/18 and a device check was completed at that time. She has a PPM and her device check did not show any therapies given as described previously. It did show previous atrial tachycardia and small runs NSVT, most recent day of admission with no recurrent events. She does not have ICD capability. Further work-up revealed elevated troponin. TTE showed low normal EF at 50%, improved from previous. Electrolytes replaced. On my exam all finding reviewed with patient and family at bedside. Daughter states that she has already requested transfer to [facility] and declines further work-up from cardiology. Consult cancelled per patient family wishes.
--- NOTE | 2018-01-23 13:59 | Event Note ---
Date of Encounter: 01/23/18 Time of Encounter: 11:00 Notified per nursing staff that patient family at bedside and are very upset. Apparently nursing staff had informed the patient's family last night that there would be a meeting at 10:00 between hospitalist and family. However hospitalist were never notified of such meeting. Family verbalized frustration concerning patient's care, they feels that they have not been updated. I did review treatment plan with family and patient, I answered their questions and again they verbalized frustration and felt that they have been ignored since the patient was admitted. I explained to the family that we did update the patient and family that was present last night of treatment plan prior to leaving however they feel that the patient is not improving, and are requesting the patient be transferred to [facility] for further care.
[2018-01-23] MEDS: *HR* HYDROcodone/Acet 7.5/325 mg TABLET PO PRN (15:49)
[2018-01-23] MEDS: Loratadine 10 MG TABLET PO SCH (17:25)
--- NOTE | 2018-01-23 18:01 | Discharge Summary ---
Orders not resulted at time of discharge: Pending orders 01/22/18 10:59 Culture,Catheter Tip [RM] Routine 01/23/18 07:31 Troponin I Routine 01/24/18 04:00 CBC [Complete Blood Count] [HEME] AM 0400 Chem 7 [Basic Metabolic Panel] AM 0400 Magnesium AM 0400 Date of Encounter: 01/23/18 Time of Encounter: 13:00 - Discharge Diagnosis (1) C. difficile colitis Priority: Primary Status: Acute (2) HTN (hypertension) Priority: Secondary Status: Chronic Qualifiers: Hypertension type: essential hypertension Qualified Code(s): I10 - Essential (primary) hypertension (3) CHF (congestive heart failure) Priority: Secondary Status: Chronic Qualifiers: Heart failure type: combined systolic and diastolic Heart failure chronicity: chronic Qualified Code(s): I50.42 - Chronic combined systolic ( congestive) and diastolic (congestive) heart failure (4) COPD (chronic obstructive pulmonary disease) Priority: Secondary Status: Chronic Qualifiers: COPD type: unspecified COPD Qualified Code(s): J44.9 - Chronic obstructive pulmonary disease, unspecified (5) Personal history of osteomyelitis Priority: Secondary Status: Acute (6) Hypokalemia Priority: Secondary Status: Acute (7) Tachycardia Priority: Primary Status: Acute Hospital course: Ms. Marcial is a 62 year old female past medical history CHF COPD pacemaker placement recurrent back surgeries recent diagnosis of surgical wound infection and suspected discitis/OM. Patient originally presented to emergency department with chief complaint of diarrhea 8 days duration. She had recently completed a long course of antibiotic therapy post back surgery. History of osteomyelitis discitis. C. difficile tox was positive she initially did not have an elevated white count however it did increase. She was started on vancomycin and Zosyn. She began develop hypotension with systolic blood pressure ranging from 60s to 70s. CBC with leukocytosis of 15 normal lactate she was transferred to ICU received a total 2 L of IV fluids and continue to be hypotensive. She was started on pressors and was tachycardic with heart rate 110. She continued to experience diarrhea. While in ICU patient did experience some chest pain as well as tachycardia. Her pacemaker was interrogated by cardiology she was noted to have atrial tachycardia and a short run of NSVT on 01/18/18. The patient's diarrhea improved and she became hemodynamic stable she was moved off the ICU floor onto medical floor. While on the medical floor she did experience an episode while going to the bathroom of tachycardia heart rate of 128 and hypoxia with S PO2 of 77 on room air. Patient was complaining of midsternal chest pain. CTA of chest was completed which was negative for PE troponin was elevated at 0.07. She was placed on nonrebreather sats did improve heart rate continued to be tachycardic EKG did show V paced rhythm. Lab work was obtained magnesium was replaced she was given some IV Lasix as well as Xopenex and steroids. Echo completed 01/23/2018 shows EF of 4550% low normal to mildly reduced LV systolic function normal LV chamber size and wall thickness. Mild left ventricular diastolic dysfunction. Normal right ventricular structure and function. No evidence of pulmonary hypertension. No significant valve dysfunction. Today she seems to have improved but continues to have some tachycardia. Cardiology has been consulted. Family and patient feel that she is not improving and are requesting to be [facility] treatment. I did contact transfer center accepting physician is Dr. Temitope Dillon. We are awaiting bed assignment. I was advise per transfer center to inform patient and family that they may be responsible for fees of transport. I discussed this with the patient as well as with her sister who is at bedside they did verbalize understanding and accepted responsibility. - Time Spent with Patient Total time spent providing and/or coordinating discharge services: - Discharge Medications Home Medications: Albuterol Sulfate [Proventil Hfa] 2 puff IH Q4H PRN 09/27/15 [History] Aspirin Enteric Coated [Aspirin EC] 81 mg PO QAM 09/27/15 [History] Cetirizine HCl [Zyrtec] 10 mg PO QPM 09/27/15 [History] Clopidogrel [Plavix] 75 mg PO QAM 09/27/15 [History] Diclofenac Sodium [Voltaren] 50 mg PO TID 09/27/15 [History] Esomeprazole Magnesium [Nexium] 40 mg PO BID 09/27/15 [History] Fluticasone Propionate Nasal [Flonase] 50 mcg NS DAILY PRN 09/27/15 [History] Furosemide [Lasix] 20 mg PO QAM 09/27/15 [History] LORazepam [Ativan] 1 mg PO TID PRN 09/27/15 [History] Lisinopril [Zestril] 2.5 mg PO QAM 09/27/15 [History] Montelukast [Singulair] 10 mg PO QAM 09/27/15 [History] SUMAtriptan succinate [Imitrex] 50 mg PO AD PRN 09/27/15 [History] Sertraline [Zoloft] 100 mg PO QPM 09/27/15 [History] Sildenafil Citrate [Revatio] 20 mg PO TID 09/27/15 [History] Sucralfate [Carafate] 1 gm PO TID 09/27/15 [History] Doxazosin [Cardura] 1 mg PO HS 10/03/17 [History] Nortriptyline HCl 50 mg PO HS 10/03/17 [History] Cyclobenzaprine [Flexeril] 10 mg PO TID PRN tablet 11/05/17 [Rx] Rifampin [Rifadin] 300 mg PO BID 7 Days #14 capsule 11/05/17 [Rx] diazePAM [Valium] 5 mg PO Q8H PRN 10 Days #30 tablet 11/05/17 [Rx] Benzonatate [Benzonatate] 100 mg PO TID 01/18/18 [History] HYDROcodone/Acet 7.5/325 mg [[place] 7.5-325 mg] 1 tab PO Q6H PRN 01/18/18 [ History] Allergies/Adverse Reactions: 3 Allergy/AdvReac Type Severity Reaction Status Date / Time codeine Allergy See Verified 01/18/18 18:26 Comments nitrofurantoin Allergy Hives Verified 01/18/18 18:26 [From Macrobid] Penicillins Allergy Hives Verified 01/18/18 18:26 sulfamethoxazole Allergy Hypotension Verified 01/18/18 18:26 [From Septra] Tetracycline Allergy Hives Verified 01/18/18 18:26 trimethoprim [From Septra] Allergy Hypotension Verified 01/18/18 18:26 phenylbutazone AdvReac See Verified 01/18/18 18:26 [From Butazolidin] Comments Sulfa (Sulfonamide AdvReac Hypotension Verified 01/18/18 18:26 Antibiotics) Date of admission: 01/18/18 20:37 Primary care physician: Dominic Martins Jr, MD Consults: 01/20/18 07:26 Consult to Pulmonology [CONS] Routine Consulting Provider: [facility] Reason for Consult: Septic shock from Cdiff colitis Time Notified: 07:27 Call Completed: Yes 01/21/18 08:00 Consult to Nutrition [CONS] Routine Comment: Consulting Provider: NUTRITION Reason for Dietary Consult: MST Score 01/22/18 09:42 Consult to Physical Therapy [CONS] Routine Comment: Evaluate, develop and implement POC Reason for Consult: deconditioning Does patient have active BEDREST order?: No Is patient medically & hemodynamically stable?: Yes Patient assessed for mobility or mobilized this visit?: No 01/22/18 09:43 Consult to Agile Test Lead [CONS] Routine Reason for SW Consult: discharge planning 01/22/18 11:37 Consult to Invasive Line Access Team [CONS] Routine Reason for Consult: Limited access Line Type: EPIV Discharging clinician: Kristi Dias Anticipated date of discharge: 01/23/18 - Constitutional Vitals: Temp Pulse Resp BP Pulse Ox 97.6 F 117 18 119/75 100 01/23/18 15:30 01/23/18 15:30 01/23/18 16:19 01/23/18 15:30 01/23/18 16:19 General appearance: Present: A&O X 3, pleasant, no acute distress, obese - Head Head exam: Present: atraumatic, normocephalic - Eye Eye exam: Present: PERRL, conjuntiva pink, sclera anicteric Pupils: Present: PERRL - Neck Neck exam general surgery: Present: supple, trachea midline. Absent: lymphadenopathy - Respiratory Respiratory exam: Present: rales. Absent: accessory muscle use, rhonchi, wheezes - Cardiovascular Cardiovascular exam: Present: RRR, +S1, +S2. Absent: diastolic murmur, gallop, rubs, systolic murmur - GI/Abdominal GI/Abdominal exam: Present: normal bowel sounds, soft, no peritoneal signs. Absent: distended, tenderness - Extremities Exam Extremities exam: Present: warm, radial pulses palpable and symmetrical. Absent : calf tenderness, cyanotic, pedal edema - Neurological Exam Neurological exam: Present: CN II-XII intact, oriented X3, no focal deficits. Absent: pronater drift, facial droop, speech deficit - Skin Skin exam: Present: dry, intact - Patient Status Disposition: Transfer Other Condition: Fair Functional capacity at discharge: bed bound Overall status at discharge: patient is not back to baseline - Discharge Instructions Follow Up With: Dominic Martins Jr, MD [Primary Care Provider] - 02/01/18 2:30 pm - Diet and Activity Activity: wear oxygen at all times
[2018-01-23 19:14] VITALS: BP 123/87
[2018-01-24] MEDS ORDERED: Furosemide 20 MG TABLET PO SCH (09:00)
--- NOTE | 2018-01-25 19:06 | Electrocardiograph Report ---
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
--- NOTE | 2018-01-25 19:09 | Electrocardiograph Report ---
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
--- NOTE | 2018-02-13 09:00 | Sepsis Event Note ---
Sepsis Event Note - Evaluation Sepsis Screen: No Definite Risk Current Stage of Sepsis: severe sepsis (with possible septic shock secondary to c-diff colitis) Possible Source of Sepsis: GI tract/intra-abdominal - Focused Exam Date of Encounter: 01/19/18 Time of Encounter: 22:00 Respiratory Exam: Present: CTA bilaterally Cardiovascular Exam: Present: tachycardia - Bedside Monitoring Date bedside monitoring was performed: 01/19/18 Time bedside monitoring was performed: 22:00 CVP Measures: 8-12 (not applicable) ScvO2 measures: less than 70% (not applicable) Bedside Ultrasound Performed: No Passive Leg raise/fluid bolus: fluid responsive (remained slighlyt hypotensive and sent to ICU for further monitoring)
== END 2018-01-23 21:31 | disposition other institution (70) | DRG 871 ==
LOC: 3ANU 15:24 → EMEROO 15:24 → 3ANU 20:06 → SUATTDRO 20:37 → ICNU 01-19 22:39 → 3BNU 01-21 11:43
PROVIDERS: ADMIT Family Medicine; ATTEND Internal Medicine

== ENCOUNTER 2020-06-26 11:48 | Inpatient (IN) ==
[2020-06-26 12:40] LABS: Basophils # 0.1 K/mcL (0.0-0.2); Basophils % 0.4 %; Eosinophils # 0.2 K/mcL (0.0-0.6); Eosinophils % 1.2 %; Hematocrit 41.3 % (35.3-44.9); Hemoglobin 12.9 g/dL (11.5-15.4); Immature Granulocytes % 0.4 % (0-4); Lymphocytes # 2.8 K/mcL (0.6-4.6); Lymphocytes % 20.1 %; Mean Corpuscular HGB Conc 31.2 g/dL (31.6-35.5); Mean Corpuscular Hemoglobin 26.5 pg (28.0-33.3); Mean Corpuscular Volume 84.8 fL (83.0-100.0); Mean Platelet Volume 10.5 fL (9.4-12.4); Monocytes % 6.8 %; Neutrophils # 9.9 K/mcL (1.6-8.9); Platelet Count 250 K/mcL (140-400); Red Blood Count 4.87 M/mcL (3.82-4.97); Red Cell Distribution Width 15.9 % (11.5-14.5); Segmented Neutrophils % 71.1 %
[2020-06-26 12:47] LABS: Bacteria,Urine Few per hpf (None-Few); Bilirubin,Urine Negative (Negative); Blood,Urine Negative (Negative); Clarity,Urine Clear (Clear); Color,Urine Light-Yellow (Yellow); Glucose,Urine (UA) Normal (Normal); Ketones,Urine Negative (Negative); Leukocyte Esterase,Urine Trace (Negative); Mucus,Urine Few per lpf (None-Few); Nitrite,Urine Negative (Negative); PH,Urine 6.5 pH Units (5.0-8.0); Protein,Urine Trace mg/dL (Neg-Trace); RBC,Urine 0-3 per hpf (0-3); Specific Gravity,Urine 1.018 (1.010-1.025); Urobilinogen,Urine Normal (Normal)
[2020-06-26] MEDS ORDERED: Isovue-370 500 ML BOTTLE IVP ONE (12:59)
[2020-06-26] MEDS ORDERED: 0.9 % Sodium Chloride 1,000 ML IVC STA (12:59)
[2020-06-26] MEDS ORDERED: Ondansetron 4 MG/2 ML VIAL IVP STA (12:59)
[2020-06-26] MEDS ORDERED: *HR* FentaNYL (PF) 100 MCG/2 ML VIAL IVP ONE (12:59)
[2020-06-26 13:01] LABS: Alanine Aminotransferase 29 Units/L (7-52); Albumin 4.2 g/dL (3.5-5.7); Albumin/Globulin Ratio 1.5 (1.1-2.2); Alkaline Phosphatase 140 Units/L (34-104); Aspartate Amino Transferase 23 Units/L (13-39); BUN/Creatinine Ratio 14 (6-26); Bilirubin,Total 0.4 mg/dL (0.3-1.0); Blood Urea Nitrogen 12 mg/dL (8-23); Calcium 10.5 mg/dL (8.6-10.3); Carbon Dioxide 25 mEq/L (23-29); Chloride 101 mEq/L (98-107); Globulin 2.8 g/dL (2.4-3.5); Glucose 144 mg/dL (70-105); Osmolality,Calculated 280 (280-300); Potassium 3.9 mEq/L (3.5-5.1); Sodium 134 mEq/L (136-145); eGFR For African Americans > 60 (> 60); eGFR For Non-African Americans > 60 (> 60)
[2020-06-26 14:02] LABS: Lipase < 3 Units/L (11-82)
[2020-06-26] MEDS ORDERED: *HR* Promethazine 25 MG/ML VIAL IVP ONE (16:06)
[2020-06-26] MEDS ORDERED: Ondansetron 4 MG/2 ML VIAL IVP PRN (17:08)
[2020-06-26] MEDS ORDERED: Naloxone 0.4 MG/ML INJ IVP PRN (17:08)
[2020-06-26] MEDS ORDERED: diazePAM 5 MG TABLET PO PRN (17:14)
[2020-06-26] MEDS ORDERED: Benzonatate 100 MG CAPSULE PO PRN (17:14)
[2020-06-26 17:50] LABS: Adenovirus Not Detected (Not Detect); Bordetella Pertussis Not Detected (Not Detect); Chlamydophila pneumoniae Not Detected (Not Detect); Coronavirus 229E Not Detected (Not Detect); Coronavirus HKU1 Not Detected (Not Detect); Coronavirus NL63 Not Detected (Not Detect); Coronavirus OC43 Not Detected (Not Detect); Human Metapneumovirus Not Detected (Not Detect); Human Rhinovirus/Enterovirus Not Detected (Not Detect); Influenza A Subtype 2009 H1 Not Detected (Not Detect); Influenza B Not Detected (Not Detect); Mycoplasma pneumoniae Not Detected (Not Detect); Parainfluenza Virus 1 Not Detected (Not Detect); Parainfluenza Virus 2 Not Detected (Not Detect); Parainfluenza Virus 3 Not Detected (Not Detect); Parainfluenza Virus 4 Not Detected (Not Detect); Respiratory Syncytial Virus Not Detected (Not Detect); SARS-CoV-2 Not Detected (Not Detect)
[2020-06-26] MEDS: Pantoprazole 40 MG VIAL IVP SCH (20:58)
[2020-06-26] MEDS: *HR* Heparin 5,000 UNIT/ML VIAL SQ SCH (20:59)
[2020-06-26] MEDS: *HR* HYDROcodone/Acet 7.5/325 mg TABLET PO PRN (20:59)
[2020-06-26 23:18] LABS: Adenovirus F 40/41 PCR Not detected (Not detect); Astrovirus PCR Not detected (Not detect); C.difficile Toxin A/B Gene PCR Not detected (Not detect); Campylobacter by PCR Not detected (Not detect); Cryptosporidium by PCR Not detected (Not detect); Cyclospora cayetanensis PCR Not detected (Not detect); E. coli O157 by PCR Not detected (Not detect); Entamoeba histolytica PCR Not detected (Not detect); Enteroaggregative E.coli(EAEC) Not detected (Not detect); Enteropathogenic E.coli(EPEC) Not detected (Not detect); Enterotoxigenic E.coli (ETEC) Not detected (Not detect); Giardia lamblia PCR Not detected (Not detect); Norovirus GI/GII PCR Not detected (Not detect); Plesiomonas shigelloides PCR Not detected (Not detect); Rotavirus A PCR Not detected (Not detect); Salmonella PCR Not detected (Not detect); Sapovirus PCR Not detected (Not detect); Shig/EnteroinvasiveE coli EIEC Not detected (Not detect); Shigalike tox-prod E coli STEC Not detected (Not detect); Vibrio PCR Not detected (Not detect); Vibrio cholerae PCR Not detected (Not detect); Yersinia enterocolitica PCR Not detected (Not detect)
[2020-06-27] MEDS: SUMAtriptan succinate 50 MG TABLET PO PRN (00:55)
[2020-06-27] MEDS: Sildenafil Citrate 20 MG TABLET PO SCH ×4 (00:55→20:34)
[2020-06-27 04:41] LABS: Basophils % 0.3 %; Eosinophils # 0.1 K/mcL (0.0-0.6); Eosinophils % 1.1 %; Hematocrit 41.4 % (35.3-44.9); Hemoglobin 12.9 g/dL (11.5-15.4); Immature Granulocytes % 0.3 % (0-4); Lymphocytes # 2.3 K/mcL (0.6-4.6); Lymphocytes % 20.8 %; Mean Corpuscular HGB Conc 31.2 g/dL (31.6-35.5); Mean Corpuscular Hemoglobin 26.4 pg (28.0-33.3); Mean Corpuscular Volume 84.7 fL (83.0-100.0); Mean Platelet Volume 10.7 fL (9.4-12.4); Monocytes # 0.8 K/mcL (0.0-1.3); Monocytes % 7.3 %; Neutrophils # 7.9 K/mcL (1.6-8.9); Platelet Count 211 K/mcL (140-400); Red Blood Count 4.89 M/mcL (3.82-4.97); Segmented Neutrophils % 70.2 %; White Blood Count 11.2 K/mcL (4.3-11.1)
[2020-06-27] MEDS: *HR* HYDROcodone/Acet 7.5/325 mg TABLET PO PRN ×3 (04:43→18:14)
[2020-06-27 04:59] LABS: BUN/Creatinine Ratio 14 (6-26); Blood Urea Nitrogen 10 mg/dL (8-23); Calcium 9.1 mg/dL (8.6-10.3); Carbon Dioxide 23 mEq/L (23-29); Chloride 104 mEq/L (98-107); Glucose 118 mg/dL (70-105); Magnesium 1.8 mg/dL (1.6-2.6); Osmolality,Calculated 284 (280-300); Phosphorous 2.9 mg/dL (2.7-4.5); Potassium 3.2 mEq/L (3.5-5.1); Sodium 137 mEq/L (136-145); eGFR For African Americans > 60 (> 60); eGFR For Non-African Americans > 60 (> 60)
[2020-06-27] MEDS: *HR* Heparin 5,000 UNIT/ML VIAL SQ SCH ×2 (05:30→18:14)
[2020-06-27] MEDS: Pantoprazole 40 MG VIAL IVP SCH ×2 (05:30→18:15)
[2020-06-27] MEDS ORDERED: Potassium Chloride 40 MEQ, Lidocaine 1% 2 ML in 0.9 % Sodium Chloride 500 ML IVPB ONE (07:50)
[2020-06-27] MEDS: Furosemide 20 MG TABLET PO SCH (08:52)
[2020-06-27] MEDS: Acetaminophen 325 MG TABLET PO PRN ×2 (08:55→20:45)
[2020-06-27] MEDS ORDERED: lisinopriL 5 MG TABLET PO SCH (09:00)
[2020-06-27] MEDS ORDERED: *HR* LORazepam 1 MG TABLET PO PRN (09:59)
[2020-06-27] MEDS: carvediloL 6.25 MG TABLET PO SCH ×2 (10:44→20:34)
[2020-06-27] MEDS: amLODIPine 5 MG TABLET PO SCH (10:46)
[2020-06-28] MEDS: *HR* HYDROcodone/Acet 7.5/325 mg TABLET PO PRN ×3 (00:39→21:53)
[2020-06-28] MEDS: SUMAtriptan succinate 50 MG TABLET PO PRN ×2 (02:04→17:17)
[2020-06-28] MEDS: Acetaminophen 325 MG TABLET PO PRN ×2 (02:05→21:54)
[2020-06-28 05:09] LABS: Basophils % 0.3 %; Eosinophils # 0.2 K/mcL (0.0-0.6); Eosinophils % 2.6 %; Hematocrit 39.7 % (35.3-44.9); Hemoglobin 11.8 g/dL (11.5-15.4); Immature Granulocytes % 0.3 % (0-4); Lymphocytes # 2.4 K/mcL (0.6-4.6); Lymphocytes % 25.4 %; Mean Corpuscular HGB Conc 29.7 g/dL (31.6-35.5); Mean Corpuscular Hemoglobin 26.3 pg (28.0-33.3); Mean Corpuscular Volume 88.6 fL (83.0-100.0); Mean Platelet Volume 11.1 fL (9.4-12.4); Monocytes # 0.6 K/mcL (0.0-1.3); Monocytes % 6.9 %; Platelet Count 182 K/mcL (140-400); Red Blood Count 4.48 M/mcL (3.82-4.97); Red Cell Distribution Width 16.3 % (11.5-14.5); Segmented Neutrophils % 64.5 %; White Blood Count 9.3 K/mcL (4.3-11.1)
[2020-06-28 05:15] LABS: BUN/Creatinine Ratio 20 (6-26); Blood Urea Nitrogen 16 mg/dL (8-23); Calcium 8.8 mg/dL (8.6-10.3); Carbon Dioxide 20 mEq/L (23-29); Chloride 106 mEq/L (98-107); Glucose 91 mg/dL (70-105); Osmolality,Calculated 279 (280-300); Potassium 4.3 mEq/L (3.5-5.1); Sodium 134 mEq/L (136-145); eGFR For African Americans > 60 (> 60); eGFR For Non-African Americans > 60 (> 60)
[2020-06-28] MEDS: Pantoprazole 40 MG VIAL IVP SCH ×2 (06:06→17:18)
[2020-06-28] MEDS: *HR* Heparin 5,000 UNIT/ML VIAL SQ SCH ×2 (06:06→17:17)
[2020-06-28] MEDS: Sildenafil Citrate 20 MG TABLET PO SCH ×3 (08:53→21:54)
[2020-06-28] MEDS: carvediloL 6.25 MG TABLET PO SCH ×2 (08:53→17:17)
[2020-06-28] MEDS: Furosemide 20 MG TABLET PO SCH (08:53)
[2020-06-28] MEDS: Multivit/Ca/Min/Fe/FA 1 TAB TABLET PO SCH (08:54)
[2020-06-28] MEDS: amLODIPine 5 MG TABLET PO SCH (08:54)
[2020-06-28] MEDS ORDERED: Lidocaine -MPF 2% 2 ML VIAL ONE (12:53)
[2020-06-28] MEDS ORDERED: *HR* Propofol 200 MG/20 ML VIAL IVP ONE ×2 (12:54→14:07)
[2020-06-29 02:10] LABS: Basophils % 0.3 %; Eosinophils # 0.2 K/mcL (0.0-0.6); Eosinophils % 1.5 %; Hematocrit 40.6 % (35.3-44.9); Hemoglobin 12.8 g/dL (11.5-15.4); Immature Granulocytes % 0.3 % (0-4); Lymphocytes # 2.7 K/mcL (0.6-4.6); Lymphocytes % 19.9 %; Mean Corpuscular HGB Conc 31.5 g/dL (31.6-35.5); Mean Corpuscular Hemoglobin 27.4 pg (28.0-33.3); Mean Corpuscular Volume 86.8 fL (83.0-100.0); Monocytes # 0.9 K/mcL (0.0-1.3); Monocytes % 6.8 %; Neutrophils # 9.6 K/mcL (1.6-8.9); Platelet Count 232 K/mcL (140-400); Red Blood Count 4.68 M/mcL (3.82-4.97); Red Cell Distribution Width 16.3 % (11.5-14.5); Segmented Neutrophils % 71.2 %; White Blood Count 13.4 K/mcL (4.3-11.1)
[2020-06-29 03:05] LABS: BUN/Creatinine Ratio 18 (6-26); Blood Urea Nitrogen 13 mg/dL (8-23); Carbon Dioxide 20 mEq/L (23-29); Chloride 104 mEq/L (98-107); Glucose 108 mg/dL (70-105); Osmolality,Calculated 287 (280-300); Potassium 3.1 mEq/L (3.5-5.1); Sodium 138 mEq/L (136-145); eGFR For African Americans > 60 (> 60); eGFR For Non-African Americans > 60 (> 60)
[2020-06-29] MEDS: SUMAtriptan succinate 50 MG TABLET PO PRN (03:32)
[2020-06-29] MEDS: *HR* Heparin 5,000 UNIT/ML VIAL SQ SCH (06:24)
[2020-06-29] MEDS: Pantoprazole 40 MG VIAL IVP SCH (06:28)
[2020-06-29 07:00] VITALS: BP 153/89
[2020-06-29] MEDS ORDERED: Potassium Chloride 40 MEQ, Lidocaine 1% 2 ML in 0.9 % Sodium Chloride 500 ML IVPB ONE (07:44)
[2020-06-29] MEDS ORDERED: Potassium Chloride Elixir 20 MEQ/15 ML UDC PO ONE (08:11)
[2020-06-29] MEDS: carvediloL 6.25 MG TABLET PO SCH (09:46)
[2020-06-29] MEDS: amLODIPine 5 MG TABLET PO SCH (09:47)
[2020-06-29] MEDS: Furosemide 20 MG TABLET PO SCH (09:47)
[2020-06-29] MEDS: Sildenafil Citrate 20 MG TABLET PO SCH (09:47)
[2020-06-29] MEDS: Multivit/Ca/Min/Fe/FA 1 TAB TABLET PO SCH (09:47)
[2020-06-29] MEDS: *HR* HYDROcodone/Acet 7.5/325 mg TABLET PO PRN (10:16)
== END 2020-06-29 10:56 | disposition home or self-care (01) | DRG 392 ==
LOC: 3ANU 11:48 → EMEROOARM 11:48 → SUATTDRO 17:55 → 3ANU 18:43
PROVIDERS: ADMIT Pharmacist; ATTEND Internal Medicine
PROC: ENDOORB (2020-06-28 13:00)

== ENCOUNTER 2021-01-13 12:07 | Observation (INO) ==
[2021-01-13 13:33] LABS: Basophils % 0.2 %; Eosinophils # 0.4 K/mcL (0.0-0.6); Eosinophils % 2.2 %; Hematocrit 34.3 % (35.3-44.9); Hemoglobin 10.4 g/dL (11.5-15.4); Immature Granulocytes % 0.2 % (0-4); Lymphocytes # 2.3 K/mcL (0.6-4.6); Lymphocytes % 12.9 %; Mean Corpuscular HGB Conc 30.3 g/dL (31.6-35.5); Mean Corpuscular Hemoglobin 24.6 pg (28.0-33.3); Mean Corpuscular Volume 81.1 fL (83.0-100.0); Mean Platelet Volume 11.5 fL (9.4-12.4); Monocytes % 5.9 %; Neutrophils # 13.7 K/mcL (1.6-8.9); Platelet Count 193 K/mcL (140-400); Red Blood Count 4.23 M/mcL (3.82-4.97); Segmented Neutrophils % 78.6 %; White Blood Count 17.4 K/mcL (4.3-11.1)
[2021-01-13 13:52] LABS: Alanine Aminotransferase 41 Units/L (7-52); Albumin 3.9 g/dL (3.5-5.7); Albumin/Globulin Ratio 1.3 (1.1-2.2); Alkaline Phosphatase 129 Units/L (34-104); Aspartate Amino Transferase 47 Units/L (13-39); BUN/Creatinine Ratio 20 (6-26); Bilirubin,Total 0.4 mg/dL (0.3-1.0); Blood Urea Nitrogen 18 mg/dL (8-23); Calcium 8.9 mg/dL (8.6-10.3); Carbon Dioxide 27 mEq/L (23-29); Chloride 101 mEq/L (98-107); Globulin 2.9 g/dL (2.4-3.5); Glucose 129 mg/dL (70-105); Osmolality,Calculated 286 (280-300); Potassium 3.4 mEq/L (3.5-5.1); Sodium 136 mEq/L (136-145); Total Protein 6.8 g/dL (6.4-8.9); Troponin I < 0.03 ng/mL (< 0.04); eGFR For African Americans > 60 (> 60); eGFR For Non-African Americans > 60 (> 60)
[2021-01-13] MEDS ORDERED: Isovue-370 500 ML BOTTLE IVP ONE (15:27)
[2021-01-13] MEDS ORDERED: 0.9 % Sodium Chloride 1,000 ML IVC ONE (16:03)
[2021-01-13] MEDS ORDERED: cefTRIAXone 1,000 MG in 0.9 % Sodium Chloride Mini Bag 100 ML IVPB ONE (16:28)
[2021-01-13] MEDS ORDERED: Azithromycin 500 MG in 0.9 % Sodium Chloride 250 ML IVPB ONE (16:28)
[2021-01-13] MEDS ORDERED: 0.9 % Sodium Chloride 1,000 ML IV ONE (18:49)
[2021-01-13 20:03] LABS: Adenovirus Not Detected (Not Detect); Bordetella Pertussis Not Detected (Not Detect); Chlamydophila pneumoniae Not Detected (Not Detect); Coronavirus 229E Not Detected (Not Detect); Coronavirus HKU1 Not Detected (Not Detect); Coronavirus NL63 Not Detected (Not Detect); Coronavirus OC43 Not Detected (Not Detect); Human Metapneumovirus Not Detected (Not Detect); Human Rhinovirus/Enterovirus Not Detected (Not Detect); Influenza A Subtype 2009 H1 Not Detected (Not Detect); Influenza B Not Detected (Not Detect); Mycoplasma pneumoniae Not Detected (Not Detect); Parainfluenza Virus 1 Not Detected (Not Detect); Parainfluenza Virus 2 Not Detected (Not Detect); Parainfluenza Virus 3 Not Detected (Not Detect); Parainfluenza Virus 4 Not Detected (Not Detect); Respiratory Syncytial Virus Not Detected (Not Detect); SARS-CoV-2 Not Detected (Not Detect)
[2021-01-13] MEDS ORDERED: *HR* HYDROcodone/Acet 7.5/325 mg TABLET PO ONE (20:58)
[2021-01-13] MEDS ORDERED: Melatonin 3 MG TABLET PO PRN (22:18)
[2021-01-13] MEDS ORDERED: Naloxone 0.4 MG/ML INJ IVP PRN (22:18)
[2021-01-13] MEDS ORDERED: Acetaminophen 325 MG TABLET PO PRN (22:18)
[2021-01-13] MEDS ORDERED: Ondansetron 4 MG/2 ML VIAL IVP PRN (22:18)
[2021-01-14] MEDS ORDERED: *HR* LORazepam 1 MG TABLET PO PRN (01:02)
[2021-01-14] MEDS ORDERED: Benzonatate 100 MG CAPSULE PO PRN (01:14)
[2021-01-14] MEDS ORDERED: GuaiFENesin Liq 200 MG/10 ML UDC PO PRN (01:33)
[2021-01-14] MEDS: *HR* HYDROcodone/Acet 7.5/325 mg TABLET PO PRN ×2 (01:35→08:15)
[2021-01-14] MEDS ORDERED: Potassium Chloride 40 MEQ, Lidocaine 1% 2 ML in 0.9 % Sodium Chloride 500 ML IVPB ONE (02:00)
[2021-01-14 02:35] LABS: Basophils % 0.2 %; Eosinophils # 0.3 K/mcL (0.0-0.6); Eosinophils % 3.3 %; Hematocrit 34.2 % (35.3-44.9); Hemoglobin 10.3 g/dL (11.5-15.4); Immature Granulocytes % 0.4 % (0-4); Lymphocytes # 2.2 K/mcL (0.6-4.6); Lymphocytes % 20.9 %; Mean Corpuscular HGB Conc 30.1 g/dL (31.6-35.5); Mean Corpuscular Hemoglobin 24.4 pg (28.0-33.3); Mean Platelet Volume 10.9 fL (9.4-12.4); Monocytes # 0.7 K/mcL (0.0-1.3); Monocytes % 6.7 %; Neutrophils # 7.1 K/mcL (1.6-8.9); Platelet Count 177 K/mcL (140-400); Red Blood Count 4.22 M/mcL (3.82-4.97); Red Cell Distribution Width 15.9 % (11.5-14.5); Segmented Neutrophils % 68.5 %; White Blood Count 10.3 K/mcL (4.3-11.1)
[2021-01-14 02:56] LABS: Alanine Aminotransferase 33 Units/L (7-52); Albumin 3.6 g/dL (3.5-5.7); Albumin/Globulin Ratio 1.4 (1.1-2.2); Alkaline Phosphatase 120 Units/L (34-104); Aspartate Amino Transferase 31 Units/L (13-39); BUN/Creatinine Ratio 15 (6-26); Bilirubin,Total 0.3 mg/dL (0.3-1.0); Blood Urea Nitrogen 9 mg/dL (8-23); Calcium 8.4 mg/dL (8.6-10.3); Carbon Dioxide 25 mEq/L (23-29); Chloride 107 mEq/L (98-107); Globulin 2.6 g/dL (2.4-3.5); Glucose 116 mg/dL (70-105); Magnesium 1.6 mg/dL (1.6-2.6); Osmolality,Calculated 290 (280-300); Phosphorous 2.2 mg/dL (2.7-4.5); Potassium 3.1 mEq/L (3.5-5.1); Sodium 140 mEq/L (136-145); Total Protein 6.2 g/dL (6.4-8.9); eGFR For African Americans > 60 (> 60); eGFR For Non-African Americans > 60 (> 60)
[2021-01-14] MEDS ORDERED: *HR* Heparin 5,000 UNIT/ML VIAL SQ SCH (06:00)
[2021-01-14 08:33] LABS: Bilirubin,Urine Negative (Negative); Blood,Urine Negative (Negative); Clarity,Urine Clear (Clear); Color,Urine Light-Yellow (Yellow); Glucose,Urine (UA) Normal (Normal); Ketones,Urine Trace mg/dL (Negative); Leukocyte Esterase,Urine Negative (Negative); Nitrite,Urine Negative (Negative); PH,Urine 6.5 pH Units (5.0-8.0); Protein,Urine Negative (Neg-Trace); Specific Gravity,Urine 1.017 (1.010-1.025); Urobilinogen,Urine Normal (Normal)
[2021-01-14] MEDS ORDERED: cefTRIAXone 1,000 MG in Water for inj. (sterile) 10 ML IVP SCH (09:00)
[2021-01-14] MEDS ORDERED: Aspirin Enteric Coated 81 MG Tablet PO SCH (09:00)
[2021-01-14 12:00] VITALS: BP 144/84
[2021-01-14] MEDS ORDERED: Azithromycin 500 MG in D5% in Water 250 ML IVPB SCH (16:00)
== END 2021-01-14 16:08 | disposition home or self-care (01) ==
LOC: 3BNU 12:07 → EMEROOARM 12:07 → SUATTDRO 21:07 → 3BNU 22:11
PROVIDERS: ADMIT Internal Medicine; ATTEND Internal Medicine

== ENCOUNTER 2021-02-25 08:51 | Observation (INO) ==
[2021-02-25] MEDS ORDERED: Ipratropium/Albuterol Neb 3 ML IH ONE (09:19)
[2021-02-25 09:45] LABS: INR 1.2; Prothrombin Time 14.2 Seconds (9.4-12.1)
[2021-02-25 09:46] LABS: Basophils % 0.3 %; Eosinophils # 0.5 K/mcL (0.0-0.6); Eosinophils % 5.3 %; Hematocrit 30.9 % (35.3-44.9); Hemoglobin 9.6 g/dL (11.5-15.4); Immature Granulocytes % 0.5 % (0-4); Lymphocytes # 1.8 K/mcL (0.6-4.6); Lymphocytes % 20.6 %; Mean Corpuscular HGB Conc 31.1 g/dL (31.6-35.5); Mean Corpuscular Hemoglobin 24.8 pg (28.0-33.3); Mean Corpuscular Volume 79.8 fL (83.0-100.0); Mean Platelet Volume 10.5 fL (9.4-12.4); Monocytes # 0.8 K/mcL (0.0-1.3); Monocytes % 8.5 %; Neutrophils # 5.7 K/mcL (1.6-8.9); Platelet Count 202 K/mcL (140-400); Red Blood Count 3.87 M/mcL (3.82-4.97); Red Cell Distribution Width 16.3 % (11.5-14.5); Segmented Neutrophils % 64.8 %; White Blood Count 8.8 K/mcL (4.3-11.1)
[2021-02-25 09:54] LABS: BUN/Creatinine Ratio 22 (6-26); Blood Urea Nitrogen 17 mg/dL (8-23); Calcium 9.7 mg/dL (8.6-10.3); Carbon Dioxide 30 mEq/L (23-29); Chloride 101 mEq/L (98-107); Glucose 120 mg/dL (70-105); Osmolality,Calculated 289 (280-300); Potassium 3.7 mEq/L (3.5-5.1); Sodium 138 mEq/L (136-145); eGFR For African Americans > 60 (> 60); eGFR For Non-African Americans > 60 (> 60)
[2021-02-25] MEDS ORDERED: Isovue-370 500 ML BOTTLE IVP ONE (11:01)
[2021-02-25] MEDS ORDERED: Albuterol 2.5 MG/3 ML NEBULIZER IH ONE (14:31)
[2021-02-25] MEDS ORDERED: cefTRIAXone 1,000 MG in Water for inj. (sterile) 10 ML IVP ONE (15:12)
[2021-02-25] MEDS ORDERED: Azithromycin 500 MG in 0.9 % Sodium Chloride 250 ML IVPB ONE (15:48)
[2021-02-25] MEDS ORDERED: methylPREDNISolone 125 MG/2 ML VIAL IVP ONE (15:48)
[2021-02-25] MEDS ORDERED: Naloxone 0.4 MG/ML INJ IVP PRN (16:24)
[2021-02-25] MEDS ORDERED: Ondansetron 4 MG/2 ML VIAL IVP PRN (16:24)
[2021-02-25] MEDS ORDERED: Acetaminophen 325 MG TABLET PO PRN (16:24)
[2021-02-25] MEDS ORDERED: Benzonatate 100 MG CAPSULE PO PRN (18:30)
[2021-02-25] MEDS: *HR* LORazepam 1 MG TABLET PO SCH (19:58)
[2021-02-25] MEDS: Gabapentin 300 MG CAPSULE PO SCH (19:58)
[2021-02-25] MEDS: *HR* HYDROcodone/Acet 7.5/325 mg TABLET PO PRN (19:58)
[2021-02-25] MEDS: carvediloL 6.25 MG TABLET PO SCH (19:58)
[2021-02-26] MEDS: *HR* HYDROcodone/Acet 7.5/325 mg TABLET PO PRN (00:13)
[2021-02-26 05:46] LABS: Hematocrit 34.2 % (35.3-44.9); Hemoglobin 10.4 g/dL (11.5-15.4); Mean Corpuscular HGB Conc 30.4 g/dL (31.6-35.5); Mean Corpuscular Hemoglobin 24.1 pg (28.0-33.3); Mean Corpuscular Volume 79.4 fL (83.0-100.0); Mean Platelet Volume 10.8 fL (9.4-12.4); Platelet Count 232 K/mcL (140-400); Red Blood Count 4.31 M/mcL (3.82-4.97); Red Cell Distribution Width 15.9 % (11.5-14.5); White Blood Count 7.6 K/mcL (4.3-11.1)
[2021-02-26 06:09] LABS: BUN/Creatinine Ratio 18 (6-26); Blood Urea Nitrogen 12 mg/dL (8-23); Calcium 9.2 mg/dL (8.6-10.3); Carbon Dioxide 27 mEq/L (23-29); Chloride 103 mEq/L (98-107); Glucose 158 mg/dL (70-105); Magnesium 1.7 mg/dL (1.6-2.6); Osmolality,Calculated 289 (280-300); Potassium 3.9 mEq/L (3.5-5.1); Sodium 138 mEq/L (136-145); eGFR For African Americans > 60 (> 60); eGFR For Non-African Americans > 60 (> 60)
[2021-02-26] MEDS ORDERED: cefTRIAXone 1,000 MG in Water for inj. (sterile) 10 ML IVP SCH (09:00)
[2021-02-26] MEDS ORDERED: Azithromycin 500 MG in 0.9 % Sodium Chloride 250 ML IVPB SCH (09:00)
[2021-02-26] MEDS: Gabapentin 300 MG CAPSULE PO SCH ×2 (09:33→21:03)
[2021-02-26] MEDS: Aspirin Enteric Coated 81 MG Tablet PO SCH (09:33)
[2021-02-26] MEDS: Sucralfate 1 GM TABLET PO SCH ×2 (09:33→16:27)
[2021-02-26] MEDS: carvediloL 6.25 MG TABLET PO SCH ×2 (09:33→16:27)
[2021-02-26] MEDS: Furosemide 20 MG TABLET PO SCH (09:34)
[2021-02-26] MEDS: *HR* LORazepam 1 MG TABLET PO SCH ×2 (09:34→21:03)
[2021-02-26] MEDS: Cefdinir 300 MG CAPSULE PO SCH (21:03)
[2021-02-27 02:30] LABS: Basophils % 0.3 %; Eosinophils # 0.1 K/mcL (0.0-0.6); Eosinophils % 0.8 %; Hematocrit 32.9 % (35.3-44.9); Hemoglobin 9.9 g/dL (11.5-15.4); Immature Granulocytes % 0.4 % (0-4); Lymphocytes % 18.6 %; Mean Corpuscular HGB Conc 30.1 g/dL (31.6-35.5); Mean Corpuscular Hemoglobin 23.7 pg (28.0-33.3); Mean Corpuscular Volume 78.7 fL (83.0-100.0); Mean Platelet Volume 10.6 fL (9.4-12.4); Monocytes # 0.7 K/mcL (0.0-1.3); Monocytes % 6.2 %; Platelet Count 242 K/mcL (140-400); Red Blood Count 4.18 M/mcL (3.82-4.97); Red Cell Distribution Width 16.2 % (11.5-14.5); Segmented Neutrophils % 73.7 %; White Blood Count 10.8 K/mcL (4.3-11.1)
[2021-02-27 02:49] LABS: BUN/Creatinine Ratio 22 (6-26); Blood Urea Nitrogen 14 mg/dL (8-23); Calcium 9.1 mg/dL (8.6-10.3); Carbon Dioxide 26 mEq/L (23-29); Chloride 105 mEq/L (98-107); Glucose 120 mg/dL (70-105); Osmolality,Calculated 292 (280-300); Potassium 3.3 mEq/L (3.5-5.1); Sodium 140 mEq/L (136-145); eGFR For African Americans > 60 (> 60); eGFR For Non-African Americans > 60 (> 60)
[2021-02-27] MEDS: *HR* HYDROcodone/Acet 7.5/325 mg TABLET PO PRN (04:24)
[2021-02-27 07:22] VITALS: BP 170/84
[2021-02-27] MEDS: Sucralfate 1 GM TABLET PO SCH (08:50)
[2021-02-27] MEDS: Cefdinir 300 MG CAPSULE PO SCH (08:50)
[2021-02-27] MEDS: Gabapentin 300 MG CAPSULE PO SCH (08:50)
[2021-02-27] MEDS: carvediloL 6.25 MG TABLET PO SCH (08:50)
[2021-02-27] MEDS: *HR* LORazepam 1 MG TABLET PO SCH (08:51)
[2021-02-27] MEDS: Furosemide 20 MG TABLET PO SCH (08:51)
[2021-02-27] MEDS: Aspirin Enteric Coated 81 MG Tablet PO SCH (08:51)
[2021-02-27] MEDS ORDERED: Azithromycin 250 MG TABLET PO SCH (09:00)
== END 2021-02-27 11:07 | disposition home or self-care (01) ==
LOC: EMEROOARM 08:51 → 3ANU 08:51 → SUATTDRO 16:05 → 3ANU 16:49
PROVIDERS: ADMIT Internal Medicine; ATTEND Internal Medicine

== ENCOUNTER 2021-05-25 17:44 | Inpatient (IN) ==
[2021-05-25 18:55] LABS: Basophils % 0.4 %; Eosinophils # 0.5 K/mcL (0.0-0.6); Eosinophils % 5.7 %; Hematocrit 35.3 % (35.3-44.9); Immature Granulocytes % 0.2 % (0-4); Lymphocytes # 2.7 K/mcL (0.6-4.6); Lymphocytes % 28.4 %; Mean Corpuscular HGB Conc 31.2 g/dL (31.6-35.5); Mean Corpuscular Hemoglobin 23.8 pg (28.0-33.3); Mean Corpuscular Volume 76.2 fL (83.0-100.0); Mean Platelet Volume 11.1 fL (9.4-12.4); Monocytes # 0.7 K/mcL (0.0-1.3); Neutrophils # 5.4 K/mcL (1.6-8.9); Platelet Count 202 K/mcL (140-400); Red Blood Count 4.63 M/mcL (3.82-4.97); Red Cell Distribution Width 16.8 % (11.5-14.5); Segmented Neutrophils % 58.3 %; White Blood Count 9.3 K/mcL (4.3-11.1)
[2021-05-25 19:13] LABS: BUN/Creatinine Ratio 14 (6-26); Blood Urea Nitrogen 9 mg/dL (8-23); Calcium 9.2 mg/dL (8.6-10.3); Carbon Dioxide 24 mEq/L (23-29); Chloride 107 mEq/L (98-107); Glucose 111 mg/dL (70-105); Osmolality,Calculated 289 (280-300); Potassium 3.2 mEq/L (3.5-5.1); Sodium 140 mEq/L (136-145); eGFR For African Americans > 60 (> 60); eGFR For Non-African Americans > 60 (> 60)
[2021-05-25 19:16] LABS: Troponin I 0.07 ng/mL (< 0.04)
[2021-05-25] MEDS ORDERED: Potassium Chloride Elixir 20 MEQ/15 ML UDC PO ONE (19:43)
[2021-05-25] MEDS ORDERED: *HR* Heparin 5,000 UNIT/ML VIAL IVP PRN ×4 (19:55→20:09)
[2021-05-25] MEDS ORDERED: *HR* Heparin 5,000 UNIT/ML VIAL IVP ONE ×2 (19:55→20:09)
[2021-05-25] MEDS ORDERED: Heparin 25,000UNIT/250ML 1/2NS 25,000 UNIT/250 ML IV.SOLN IVC SCH ×2 (20:00→20:15)
[2021-05-25] MEDS ORDERED: Melatonin 3 MG TABLET PO PRN (20:34)
[2021-05-25] MEDS ORDERED: Naloxone 0.4 MG/ML INJ IVP PRN (20:34)
[2021-05-25 20:50] LABS: INR 1.2; Prothrombin Time 13.4 Seconds (9.4-12.1)
[2021-05-25 20:53] LABS: Heparin anti-factor XA UFH < 0.04 IU/mL (0.30-0.70)
[2021-05-25] MEDS: Morphine Sulfate 2 MG/ML SYRINGE IVP PRN (22:30)
[2021-05-25] MEDS ORDERED: Perflutren Lipid Microsphere 1.3 ML in 0.9 % Sodium Chloride 8.7 ML IVP PRN (23:11)
[2021-05-25] MEDS: Nitroglycerin 0.4 MG TAB.SUBL SL PRN ×3 (23:13→23:34)
[2021-05-26] MEDS: carvediloL 6.25 MG TABLET PO SCH ×3 (00:03→17:44)
[2021-05-26 01:12] LABS: Hematocrit 36.9 % (35.3-44.9); Hemoglobin 11.2 g/dL (11.5-15.4); Mean Corpuscular HGB Conc 30.4 g/dL (31.6-35.5); Mean Corpuscular Hemoglobin 23.2 pg (28.0-33.3); Mean Corpuscular Volume 76.4 fL (83.0-100.0); Platelet Count 208 K/mcL (140-400); Red Blood Count 4.83 M/mcL (3.82-4.97); Red Cell Distribution Width 16.9 % (11.5-14.5); White Blood Count 11.3 K/mcL (4.3-11.1)
[2021-05-26] MEDS ORDERED: 0.9 % Sodium Chloride 1,000 ML IVC SCH ×2 (01:15→14:00)
[2021-05-26 02:26] LABS: BUN/Creatinine Ratio 14 (6-26); Blood Urea Nitrogen 9 mg/dL (8-23); Carbon Dioxide 24 mEq/L (23-29); Chloride 106 mEq/L (98-107); Chol/HDL Ratio 4.8 (0-4.9); Cholesterol 269 mg/dL (< 200); Glucose 104 mg/dL (70-105); HDL Cholesterol 56 mg/dL (40-59); LDL Cholesterol,Calculated 177 mg/dL (< 100); Osmolality,Calculated 289 (280-300); Potassium 3.5 mEq/L (3.5-5.1); Sodium 140 mEq/L (136-145); Triglycerides 180 mg/dL (< 150); eGFR For African Americans > 60 (> 60); eGFR For Non-African Americans > 60 (> 60)
[2021-05-26 03:34] LABS: Troponin I 1.85 ng/mL (< 0.04)
[2021-05-26] MEDS: Acetaminophen 325 MG TABLET PO PRN (03:54)
[2021-05-26] MEDS: Ondansetron 4 MG/2 ML VIAL IVP PRN ×2 (04:49→22:44)
[2021-05-26] MEDS: Morphine Sulfate 2 MG/ML SYRINGE IVP PRN ×4 (09:10→22:46)
[2021-05-26] MEDS: Aspirin 81 MG TAB.CHEW PO SCH (09:14)
[2021-05-26] MEDS ORDERED: Heparin 1,000 UNITS/500 mL 500 ML ONE (11:34)
[2021-05-26] MEDS ORDERED: 0.9 % Sodium Chloride 1,000 ML ONE ×2 (11:34→12:00)
[2021-05-26] MEDS ORDERED: ISOVUE-370 200 ML INFUS..BTL ONE (11:34)
[2021-05-26] MEDS ORDERED: Nitroglycerin 1,000 MCG/5 ML VIAL IV ONE (11:34)
[2021-05-26] MEDS ORDERED: *HR* Heparin 10,000 UNIT/10 ML VIAL ONE (11:34)
[2021-05-26] MEDS ORDERED: *HR* FentaNYL (PF) 100 MCG/2 ML VIAL ONE (11:58)
[2021-05-26] MEDS ORDERED: *HR* Midazolam HCl 2 MG/2 ML VIAL ONE (11:58)
[2021-05-26] MEDS ORDERED: Morphine Sulfate 2 MG/ML SYRINGE IVP ONE (19:39)
[2021-05-26] MEDS ORDERED: GI Cocktail 40 ML EACH PO ONE (19:42)
[2021-05-26] MEDS ORDERED: Gabapentin 300 MG CAPSULE PO PRN (22:36)
[2021-05-27] MEDS: Acetaminophen 325 MG TABLET PO PRN ×2 (04:10→23:18)
[2021-05-27] MEDS: Aspirin 81 MG TAB.CHEW PO SCH (08:00)
[2021-05-27] MEDS: carvediloL 6.25 MG TABLET PO SCH (08:00)
[2021-05-27] MEDS: Morphine Sulfate 2 MG/ML SYRINGE IVP PRN (08:05)
[2021-05-27] MEDS: Spironolactone 25 MG TABLET PO SCH (10:46)
[2021-05-27] MEDS ORDERED: *HR* OxyCODONE/APAP 5/325 TABLET PO PRN (12:38)
[2021-05-27] MEDS: carvediloL 25 MG TABLET PO SCH (17:16)
[2021-05-27] MEDS: *HR* Enoxaparin 40 MG/0.4 ML SYRINGE SQ SCH (17:16)
[2021-05-28] MEDS: Ondansetron 4 MG/2 ML VIAL IVP PRN (06:04)
[2021-05-28] MEDS: *HR* Enoxaparin 40 MG/0.4 ML SYRINGE SQ SCH (07:37)
[2021-05-28] MEDS: Spironolactone 25 MG TABLET PO SCH (07:37)
[2021-05-28] MEDS: carvediloL 25 MG TABLET PO SCH (07:37)
[2021-05-28] MEDS: Aspirin 81 MG TAB.CHEW PO SCH (07:37)
[2021-05-28 11:32] VITALS: BP 142/87; PULSE 86; TEMP 98.1; O2SAT 95
== END 2021-05-28 12:14 | disposition home or self-care (01) | DRG 280 ==
LOC: EMEROOARM 17:44 → 3ANU 17:44 → SUATTDRO 20:42 → 3ANU 22:03 → 2ANU 05-26 12:52
PROVIDERS: ADMIT Internal Medicine; ATTEND Hospitalist

== ENCOUNTER 2021-10-29 03:31 | Inpatient (IN) ==
[2021-10-29] MEDS ORDERED: 0.9 % Sodium Chloride 1,000 ML IVC SCH (04:15)
[2021-10-29 04:41] LABS: Hemoglobin 10.1 g/dL (11.5-15.4); Mean Corpuscular HGB Conc 30.6 g/dL (31.6-35.5); Mean Corpuscular Hemoglobin 23.2 pg (28.0-33.3); Mean Corpuscular Volume 75.7 fL (83.0-100.0); Mean Platelet Volume 11.1 fL (9.4-12.4); Platelet Count 213 K/mcL (140-400); Red Blood Count 4.36 M/mcL (3.82-4.97); Red Cell Distribution Width 15.5 % (11.5-14.5); White Blood Count 12.2 K/mcL (4.3-11.1)
[2021-10-29 04:47] LABS: INR 1.3; Prothrombin Time 14.4 Seconds (9.4-12.1)
[2021-10-29 04:50] LABS: Activated Partial Thrombo Time 30.6 Seconds (26.0-36.0)
[2021-10-29] MEDS ORDERED: 0.9 % Sodium Chloride 500 ML IVC ONE (04:57)
[2021-10-29 05:00] LABS: Albumin 3.1 g/dL (3.5-5.7); Albumin/Globulin Ratio 1.1 (1.1-2.2); Bilirubin,Direct 0.5 mg/dL (0.0-0.2); Bilirubin,Indirect 0.3 mg/dL (0.0-1.0); Bilirubin,Total 0.8 mg/dL (0.3-1.0); Globulin 2.7 g/dL (2.4-3.5); Magnesium 1.2 mg/dL (1.6-2.6); Potassium 3.3 mEq/L (3.5-5.1); Total Protein 5.8 g/dL (6.4-8.9); Troponin I 0.39 ng/mL (< 0.04)
[2021-10-29] MEDS: Norepinephrine 4 MG/254 ML IV.SOLN IVC SCH ×3 (05:10→22:43)
[2021-10-29] MEDS ORDERED: Magnesium Oxide 400 MG TABLET PO ONE (05:35)
[2021-10-29 05:55] LABS: Lymphocytes # 2.3 K/mcL (0.6-4.6); Monocytes # 0.4 K/mcL (0.0-1.3); Neutrophils # 9.5 K/mcL (1.6-8.9); Platelet Estimate Normal (Normal)
[2021-10-29 05:56] LABS: Reactive Lymphocytes Present (Not Present)
[2021-10-29] MEDS ORDERED: Albuterol 2.5 MG/3 ML NEBULIZER IH ONE (06:28)
[2021-10-29] MEDS ORDERED: *HR* LORazepam 2 MG/ML VIAL ONE (08:51)
[2021-10-29] MEDS ORDERED: *HR* LORazepam 2 MG/ML VIAL IVP STA (09:13)
[2021-10-29 09:50] LABS: Bacteria,Urine Few per hpf (None-Few); Bilirubin,Urine Negative (Negative); Blood,Urine Negative (Negative); Clarity,Urine Clear (Clear); Color,Urine Yellow (Yellow); Glucose,Urine (UA) Normal (Normal); Hyaline Casts,Urine Many per lpf (None Seen); Ketones,Urine Negative (Negative); Leukocyte Esterase,Urine Negative (Negative); Mucus,Urine Few per lpf (None-Few); Nitrite,Urine Negative (Negative); Protein,Urine 30 mg/dL (Neg-Trace); RBC,Urine 0-3 per hpf (0-3); Specific Gravity,Urine 1.022 (1.010-1.025); Squamous Epithelial Cell,Urine Few per hpf (None-Few); Urobilinogen,Urine Normal (Normal); WBC,Urine 0-3 per hpf (0-3)
[2021-10-29] MEDS ORDERED: Doxycycline 100 MG CAPSULE PO SCH (11:15)
[2021-10-29] MEDS: Cefepime HCl 2,000 MG in 0.9 % Sodium Chloride Mini Bag 100 ML IVPB SCH ×2 (12:19→20:29)
[2021-10-29] MEDS ORDERED: *HR* Heparin 5,000 UNIT/ML VIAL IVP PRN ×2 (12:35)
[2021-10-29] MEDS ORDERED: *HR* Heparin 5,000 UNIT/ML VIAL IVP ONE (12:35)
[2021-10-29] MEDS ORDERED: Naloxone 0.4 MG/ML INJ IVP PRN (12:35)
[2021-10-29] MEDS: Heparin 25,000UNIT/250ML 1/2NS 25,000 UNIT/250 ML IV.SOLN IVC SCH (13:40)
[2021-10-29] MEDS: Azithromycin 500 MG in 0.9 % Sodium Chloride 250 ML IVPB SCH (13:53)
[2021-10-29 15:15] LABS: Heparin anti-factor XA UFH 0.89 IU/mL (0.30-0.70)
[2021-10-29 15:18] LABS: ABG Base Excess 3 mEq/L (-2 to 3); ABG HCO3 27 mEq/L (21-27); ABG Oxygen Saturation 95 % (95-98); ABG PCO2 41 mmHg (35-45); ABG PH 7.43 pH Units (7.32-7.45); ABG PO2 73 mmHg (85-104); ABG TCO2 28 mEq/L (20-26)
[2021-10-29 15:33] LABS: Troponin I 0.41 ng/mL (< 0.04)
[2021-10-29] MEDS: Albumin Human 5% 12.5 GM/250 ML IV.SOLN IVC SCH ×2 (15:54→23:49)
[2021-10-29] MEDS ORDERED: Perflutren Lipid Microsphere 1.3 ML in 0.9 % Sodium Chloride 8.7 ML IVP PRN (16:31)
[2021-10-30] MEDS ORDERED: GuaiFENesin/Dextromethorphan TABLET PO PRN (03:08)
[2021-10-30] MEDS: Cefepime HCl 2,000 MG in 0.9 % Sodium Chloride Mini Bag 100 ML IVPB SCH ×3 (03:59→19:56)
[2021-10-30] MEDS: Norepinephrine 4 MG/254 ML IV.SOLN IVC SCH (04:00)
[2021-10-30 05:14] LABS: Basophils % 0.1 %; Hematocrit 26.5 % (35.3-44.9); Immature Granulocytes % 0.6 % (0-4); Lymphocytes # 0.9 K/mcL (0.6-4.6); Lymphocytes % 10.4 %; Mean Corpuscular HGB Conc 30.9 g/dL (31.6-35.5); Mean Corpuscular Volume 74.2 fL (83.0-100.0); Mean Platelet Volume 11.1 fL (9.4-12.4); Monocytes # 0.4 K/mcL (0.0-1.3); Monocytes % 4.5 %; Neutrophils # 6.9 K/mcL (1.6-8.9); Platelet Count 181 K/mcL (140-400); Red Blood Count 3.57 M/mcL (3.82-4.97); Red Cell Distribution Width 15.5 % (11.5-14.5); Segmented Neutrophils % 84.4 %; White Blood Count 8.2 K/mcL (4.3-11.1)
[2021-10-30 05:16] LABS: Hemoglobin 8.2 g/dL (11.5-15.4)
[2021-10-30 05:28] LABS: Alanine Aminotransferase 29 Units/L (7-52); Albumin 3.1 g/dL (3.5-5.7); Albumin/Globulin Ratio 1.1 (1.1-2.2); Alkaline Phosphatase 201 Units/L (34-104); Aspartate Amino Transferase 23 Units/L (13-39); BUN/Creatinine Ratio 37 (6-26); Bilirubin,Direct 0.2 mg/dL (0.0-0.2); Bilirubin,Indirect 0.3 mg/dL (0.0-1.0); Bilirubin,Total 0.5 mg/dL (0.3-1.0); Blood Urea Nitrogen 28 mg/dL (8-23); Calcium 8.1 mg/dL (8.6-10.3); Carbon Dioxide 26 mEq/L (23-29); Chloride 102 mEq/L (98-107); Globulin 2.9 g/dL (2.4-3.5); Glucose 149 mg/dL (70-105); Magnesium 1.7 mg/dL (1.6-2.6); Osmolality,Calculated 296 (280-300); Phosphorous 3.5 mg/dL (2.7-4.5); Potassium 3.3 mEq/L (3.5-5.1); Sodium 139 mEq/L (136-145); eGFR For African Americans > 60 (> 60); eGFR For Non-African Americans > 60 (> 60)
[2021-10-30] MEDS: carvediloL 25 MG TABLET PO SCH ×2 (09:05→16:46)
[2021-10-30] MEDS: Aspirin Enteric Coated 81 MG Tablet PO SCH (09:05)
[2021-10-30] MEDS: Azithromycin 500 MG in 0.9 % Sodium Chloride 250 ML IVPB SCH (12:33)
[2021-10-30] MEDS: Heparin 25,000UNIT/250ML 1/2NS 25,000 UNIT/250 ML IV.SOLN IVC SCH (15:10)
[2021-10-30 20:37] LABS: Adenovirus F 40/41 PCR Not detected (Not detect); Astrovirus PCR Not detected (Not detect); C.difficile Toxin A/B Gene PCR Not detected (Not detect); Campylobacter by PCR Not detected (Not detect); Cryptosporidium by PCR Not detected (Not detect); Cyclospora cayetanensis PCR Not detected (Not detect); E. coli O157 by PCR Not detected (Not detect); Entamoeba histolytica PCR Not detected (Not detect); Enteroaggregative E.coli(EAEC) Not detected (Not detect); Enteropathogenic E.coli(EPEC) Not detected (Not detect); Enterotoxigenic E.coli (ETEC) Not detected (Not detect); Giardia lamblia PCR Not detected (Not detect); Norovirus GI/GII PCR Not detected (Not detect); Plesiomonas shigelloides PCR Not detected (Not detect); Rotavirus A PCR Not detected (Not detect); Salmonella PCR Not detected (Not detect); Sapovirus PCR Not detected (Not detect); Shig/EnteroinvasiveE coli EIEC Not detected (Not detect); Shigalike tox-prod E coli STEC Not detected (Not detect); Vibrio PCR Not detected (Not detect); Vibrio cholerae PCR Not detected (Not detect); Yersinia enterocolitica PCR Not detected (Not detect)
[2021-10-31] MEDS: Ondansetron 4 MG/2 ML VIAL IVP PRN (01:13)
[2021-10-31] MEDS ORDERED: *HR* Metoprolol 5 MG/5 ML VIAL IVP ONE (02:20)
[2021-10-31 04:07] LABS: Basophils % 0.3 %; Hematocrit 27.7 % (35.3-44.9); Hemoglobin 8.5 g/dL (11.5-15.4); Immature Granulocytes % 2.6 % (0-4); Lymphocytes # 1.1 K/mcL (0.6-4.6); Lymphocytes % 10.3 %; Mean Corpuscular HGB Conc 30.7 g/dL (31.6-35.5); Mean Corpuscular Hemoglobin 22.8 pg (28.0-33.3); Mean Corpuscular Volume 74.5 fL (83.0-100.0); Mean Platelet Volume 10.9 fL (9.4-12.4); Monocytes # 0.5 K/mcL (0.0-1.3); Monocytes % 4.7 %; Neutrophils # 8.5 K/mcL (1.6-8.9); Nucleated Red Blood Cells 0.2 /100 WBC (0); Platelet Count 243 K/mcL (140-400); Red Blood Count 3.72 M/mcL (3.82-4.97); Red Cell Distribution Width 15.5 % (11.5-14.5); Segmented Neutrophils % 82.1 %; White Blood Count 10.3 K/mcL (4.3-11.1)
[2021-10-31 04:21] LABS: Alanine Aminotransferase 27 Units/L (7-52); Albumin 3.2 g/dL (3.5-5.7); Alkaline Phosphatase 188 Units/L (34-104); Aspartate Amino Transferase 20 Units/L (13-39); BUN/Creatinine Ratio 38 (6-26); Bilirubin,Direct 0.1 mg/dL (0.0-0.2); Bilirubin,Indirect 0.3 mg/dL (0.0-1.0); Bilirubin,Total 0.4 mg/dL (0.3-1.0); Blood Urea Nitrogen 30 mg/dL (8-23); Calcium 8.6 mg/dL (8.6-10.3); Carbon Dioxide 22 mEq/L (23-29); Chloride 102 mEq/L (98-107); Globulin 3.1 g/dL (2.4-3.5); Glucose 138 mg/dL (70-105); Magnesium 1.9 mg/dL (1.6-2.6); Osmolality,Calculated 286 (280-300); Phosphorous 2.7 mg/dL (2.7-4.5); Potassium 3.6 mEq/L (3.5-5.1); Sodium 134 mEq/L (136-145); Total Protein 6.3 g/dL (6.4-8.9); eGFR For African Americans > 60 (> 60); eGFR For Non-African Americans > 60 (> 60)
[2021-10-31] MEDS: Pantoprazole 40 MG VIAL IVP SCH ×2 (04:48→18:38)
[2021-10-31] MEDS: *HR* HYDROcodone/Acet 7.5/325 mg TABLET PO PRN ×3 (04:49→20:18)
[2021-10-31] MEDS: Cefepime HCl 2,000 MG in 0.9 % Sodium Chloride Mini Bag 100 ML IVPB SCH ×2 (04:49→14:03)
[2021-10-31] MEDS ORDERED: Furosemide 20 MG/2 ML VIAL IVP ONE (05:19)
[2021-10-31] MEDS: carvediloL 25 MG TABLET PO SCH ×2 (10:04→16:25)
[2021-10-31] MEDS: Aspirin Enteric Coated 81 MG Tablet PO SCH (10:04)
[2021-10-31] MEDS ORDERED: Albuterol 2.5 MG/3 ML NEBULIZER IH PRN (11:19)
[2021-10-31] MEDS: Azithromycin 500 MG in 0.9 % Sodium Chloride 250 ML IVPB SCH (14:03)
[2021-10-31] MEDS: Sildenafil Citrate 20 MG TABLET PO SCH ×2 (16:25→20:15)
[2021-10-31] MEDS: *HR* Heparin 5,000 UNIT/ML VIAL SQ SCH (18:38)
[2021-10-31 18:45] LABS: Hematocrit 28.6 % (35.3-44.9); Hemoglobin 8.9 g/dL (11.5-15.4)
[2021-10-31] MEDS: Sucralfate 1 GM TABLET PO SCH (20:15)
[2021-11-01 01:03] LABS: Hematocrit 29.8 % (35.3-44.9); Mean Corpuscular HGB Conc 30.2 g/dL (31.6-35.5); Mean Corpuscular Hemoglobin 22.4 pg (28.0-33.3); Mean Corpuscular Volume 74.3 fL (83.0-100.0); Mean Platelet Volume 10.7 fL (9.4-12.4); Nucleated Red Blood Cells 0.2 /100 WBC (0); Platelet Count 246 K/mcL (140-400); Red Blood Count 4.01 M/mcL (3.82-4.97); Red Cell Distribution Width 15.5 % (11.5-14.5)
[2021-11-01 01:26] LABS: Alanine Aminotransferase 20 Units/L (7-52); Alkaline Phosphatase 149 Units/L (34-104); Aspartate Amino Transferase 19 Units/L (13-39); BUN/Creatinine Ratio 44 (6-26); Bilirubin,Direct 0.1 mg/dL (0.0-0.2); Bilirubin,Indirect 0.3 mg/dL (0.0-1.0); Bilirubin,Total 0.4 mg/dL (0.3-1.0); Blood Urea Nitrogen 31 mg/dL (8-23); Calcium 8.5 mg/dL (8.6-10.3); Carbon Dioxide 22 mEq/L (23-29); Chloride 103 mEq/L (98-107); Globulin 2.9 g/dL (2.4-3.5); Glucose 131 mg/dL (70-105); Osmolality,Calculated 286 (280-300); Phosphorous 2.4 mg/dL (2.7-4.5); Potassium 3.8 mEq/L (3.5-5.1); Sodium 134 mEq/L (136-145); Total Protein 5.9 g/dL (6.4-8.9); eGFR For African Americans > 60 (> 60); eGFR For Non-African Americans > 60 (> 60)
[2021-11-01 02:18] LABS: Lymphocytes # 2.4 K/mcL (0.6-4.6); Monocytes # 0.8 K/mcL (0.0-1.3); Neutrophils # 6.6 K/mcL (1.6-8.9); Platelet Estimate Normal (Normal); Reactive Lymphocytes Present (Not Present)
[2021-11-01] MEDS: Cefepime HCl 2,000 MG in 0.9 % Sodium Chloride Mini Bag 100 ML IVPB SCH ×2 (03:42→14:42)
[2021-11-01] MEDS: *HR* Heparin 5,000 UNIT/ML VIAL SQ SCH ×2 (05:26→17:55)
[2021-11-01] MEDS: Pantoprazole 40 MG VIAL IVP SCH ×2 (05:26→17:55)
[2021-11-01] MEDS: Aspirin Enteric Coated 81 MG Tablet PO SCH ×2 (08:35→08:44)
[2021-11-01] MEDS: Furosemide 20 MG TABLET PO SCH ×2 (08:36→08:44)
[2021-11-01] MEDS: Multivit/Ca/Min/Fe/FA 1 TAB TABLET PO SCH ×2 (08:36→08:45)
[2021-11-01] MEDS: Sucralfate 1 GM TABLET PO SCH ×3 (08:36→20:20)
[2021-11-01] MEDS: Sildenafil Citrate 20 MG TABLET PO SCH ×5 (08:36→20:20)
[2021-11-01] MEDS: carvediloL 25 MG TABLET PO SCH ×3 (08:36→17:55)
[2021-11-01] MEDS: Azithromycin 500 MG in 0.9 % Sodium Chloride 250 ML IVPB SCH (13:27)
[2021-11-01] MEDS ORDERED: Lidocaine -MPF 2% 5 ML VIAL ONE (14:47)
[2021-11-01] MEDS ORDERED: *HR* Propofol 200 MG/20 ML VIAL IVP ONE (14:47)
[2021-11-01] MEDS ORDERED: *HR* Metoprolol 5 MG/5 ML VIAL IVP ONE (15:15)
[2021-11-01] MEDS ORDERED: Cefepime HCl 2,000 MG in 0.9 % Sodium Chloride Mini Bag 100 ML IVPB SCH (16:00)
[2021-11-02 01:37] LABS: Basophils # 0.1 K/mcL (0.0-0.2); Basophils % 0.7 %; Hematocrit 33.1 % (35.3-44.9); Hemoglobin 9.9 g/dL (11.5-15.4); Immature Granulocytes % 7.2 % (0-4); Lymphocytes % 18.9 %; Mean Corpuscular HGB Conc 29.9 g/dL (31.6-35.5); Mean Corpuscular Hemoglobin 22.4 pg (28.0-33.3); Mean Corpuscular Volume 74.9 fL (83.0-100.0); Mean Platelet Volume 10.2 fL (9.4-12.4); Monocytes # 1.3 K/mcL (0.0-1.3); Monocytes % 10.4 %; Neutrophils # 7.8 K/mcL (1.6-8.9); Platelet Count 290 K/mcL (140-400); Red Blood Count 4.42 M/mcL (3.82-4.97); Red Cell Distribution Width 15.5 % (11.5-14.5); Segmented Neutrophils % 62.8 %; White Blood Count 12.4 K/mcL (4.3-11.1)
[2021-11-02 01:54] LABS: Alanine Aminotransferase 16 Units/L (7-52); Albumin 3.2 g/dL (3.5-5.7); Albumin/Globulin Ratio 1.2 (1.1-2.2); Alkaline Phosphatase 136 Units/L (34-104); Aspartate Amino Transferase 11 Units/L (13-39); BUN/Creatinine Ratio 34 (6-26); Bilirubin,Direct 0.1 mg/dL (0.0-0.2); Bilirubin,Indirect 0.3 mg/dL (0.0-1.0); Bilirubin,Total 0.4 mg/dL (0.3-1.0); Blood Urea Nitrogen 26 mg/dL (8-23); Calcium 8.4 mg/dL (8.6-10.3); Carbon Dioxide 26 mEq/L (23-29); Chloride 101 mEq/L (98-107); Globulin 2.7 g/dL (2.4-3.5); Glucose 91 mg/dL (70-105); Magnesium 1.8 mg/dL (1.6-2.6); Osmolality,Calculated 288 (280-300); Potassium 3.1 mEq/L (3.5-5.1); Sodium 137 mEq/L (136-145); Total Protein 5.9 g/dL (6.4-8.9); eGFR For African Americans > 60 (> 60); eGFR For Non-African Americans > 60 (> 60)
[2021-11-02 01:58] LABS: Lymphocytes # 2.3 K/mcL (0.6-4.6)
[2021-11-02 02:22] LABS: Anisocytosis 1+ (Not Present); Platelet Estimate Normal (Normal); Reactive Lymphocytes Present (Not Present)
[2021-11-02] MEDS: Ondansetron 4 MG/2 ML VIAL IVP PRN (04:47)
[2021-11-02] MEDS: *HR* HYDROcodone/Acet 7.5/325 mg TABLET PO PRN ×2 (04:51→09:20)
[2021-11-02] MEDS: Pantoprazole 40 MG VIAL IVP SCH (05:07)
[2021-11-02] MEDS: *HR* Heparin 5,000 UNIT/ML VIAL SQ SCH (05:08)
[2021-11-02] MEDS ORDERED: Potassium Chloride Elixir 20 MEQ/15 ML UDC PO ONE (07:18)
[2021-11-02 07:51] VITALS: BP 139/83; PULSE 79; TEMP 97.9; O2SAT 100
[2021-11-02] MEDS: Sildenafil Citrate 20 MG TABLET PO SCH (08:05)
[2021-11-02] MEDS: Furosemide 20 MG TABLET PO SCH (08:06)
[2021-11-02] MEDS: Multivit/Ca/Min/Fe/FA 1 TAB TABLET PO SCH (08:06)
[2021-11-02] MEDS: carvediloL 25 MG TABLET PO SCH (08:07)
[2021-11-02] MEDS: Aspirin Enteric Coated 81 MG Tablet PO SCH (08:07)
[2021-11-02] MEDS: Sucralfate 1 GM TABLET PO SCH (08:08)
[2021-11-02] MEDS: Azithromycin 500 MG in 0.9 % Sodium Chloride 250 ML IVPB SCH (11:43)
[2021-11-02] MEDS ORDERED: Cefepime HCl 2,000 MG in 0.9 % Sodium Chloride Mini Bag 100 ML IVPB SCH (22:00)
== END 2021-11-02 12:40 | disposition home health service (06) | DRG 871 ==
LOC: EMEROOARM 03:31 → 2NENU 17:15 → SUATTDRO 17:15 → 2NENU 17:56
PROVIDERS: ADMIT Pediatrics; ATTEND Internal Medicine